=== PATIENT | male | born 1930 | race Caucasian/White ===

== ENCOUNTER 2016-05-08 17:30 | Emergency (ER) | payer OTHER, MEDICARE ==
[~2016-05-08] VITALS: Ht 172.7 cm; Wt 81.6 kg
[~2016-05-08 17:30] MED LIST: AMOXICILLIN250 M3 PO; AMOXIL500 MG PO; ARICEPT10 M1 PO; ASPIR 8181 MG PO; ASPIRIN EC81 M1 PO; Benadryl TOP; CIPRO 250MG250 MG PO; CIPRO 500MG TA500 MG PO; CLONIDINE HCL0.1 MG PO; DOXYCYCLINE HY100 M4 PO; DOXYCYCLINE50 M1 PO; ELIMITE60 GM TOP; EUCERIN1 CRE TOP; FINASTERIDE5 M1 PO; FLOMAX(MONOGRA0.4 MG PO; FOLIC ACID0.4 MG PO; FOLIC ACID1 M1 PO; FUROSEMIDE20 M1 PO; LIPITOR20 M2 PO; LUBRIDERM 480ML16 OZ TOP; METOPROLOL TART25 M1 PO; MIRALAX17 GM PO; NAMENDA10 M2 PO; NYSTATIN AND TR1 OIN TOP; NYSTATIN100000 U/2 TOP; PAIN RELIEVER500 MG PO; PERCOCET 325 MG1 TA2 PO; PREDNISONE 20MG20 MG PO; PREDNISONE5 M1 PO; PRILOSEC 20MG C20 MG PO; ROBITUSSIN COU237 ML PO; SENNA CON/DOCUS1 TAB PO; TRAZODONE HCL50 M1 PO; TRIAMCINOL0.1 %/453 TOP; TRIAMCINOLONE A15 GM TOP; TRIAMCINOLONE0.025% TOP; VITAMIN B-121000 MC3 PO; [UNRECOGNIZED DRUG - OTHER] TOP
--- NOTE | 2016-05-08 17:48 | ED NEURO DEFICIT/STROKE ---
See Addendum History of Present Illness General Chief Complaint: General Adult Stated Complaint: NUMBNESS TO RIGHT SIDE OF FACE Source: patient, old records, EMS Exam Limitations: dementia Vital Signs & Intake/Output Vital Signs & Intake/Output Vital Signs Date Time Temp Pulse Resp B/P Pulse O2 O2 Flow FiO2 Ox Delivery Rate 05/08 2018 98.0 68 18 140/80 94 Room Air 05/08 1733 96 05/08 1732 97.7 62 16 139/78 93 Room Air Allergies Coded Allergies: Antihistamines - Alkylamine (UNKNOWN 06/25/15) Reconcile Medications Acetaminophen (Pain Reliever) 500 MG CAPSULE 2 TAB PO BID PRN PAIN (Reported) Aspirin (Ecotrin*) 81 MG TABLET.DR 1 TAB PO DAILY HEART/BLOOD (Reported) Atorvastatin Calcium (Lipitor) 20 MG TABLET 1 TAB PO DAILY CHOLESTEROL ( Reported) Clonidine HCl 0.1 MG TABLET 1 TAB PO DAILY HTN (Reported) Cyanocobalamin (Vitamin B-12) 1,000 MCG TABLET 1 TAB PO DAILY SUPPLEMENT ( Reported) Donepezil HCl (Aricept) 10 MG TABLET 1 TAB PO QPM MEMORY (Reported) Finasteride 5 MG TABLET 1 TAB PO DAILY PROSTATE (Reported) Folic Acid 1 MG TABLET 1 TAB PO DAILY SUPPLEMENT (Reported) Furosemide 20 MG TABLET 1 TAB PO DAILY DIURETIC (Reported) Memantine HCl (Namenda) 10 MG TABLET 1 TAB PO BID MEMORY (Reported) Metoprolol Tartrate 25 MG TABLET 1 TAB PO BID HTN (Reported) Nystatin (Nyamyc) 100,000 UNIT/GRAM POWDER 1 FALLON TOP AD PRN UNKNOWN (Reported ) Omeprazole 40 MG CAPSULE.DR 1 CAP PO DAILY AC GI (Reported) Polyethylene Glycol 3350 (Miralax) 17 GRAM POWD.PACK 1 PAC PO DAILY PRN GI ( Reported) dissolve in water Selenium Sulfide 2.5 % SHAMPOO 1 FALLON TOP BID ABD & LEGS (Reported) Sennosides (Senna) 8.6 MG TABLET 1 TAB PO Monday GI (Reported) Tamsulosin HCl (Flomax) 0.4 MG CAP.ER.24H 1 CAP PO DAILY BPH (Reported) Trazodone HCl 50 MG TABLET 1 TAB PO BID UNKNOWN (Reported) Triamcinolone Acetonide 0.025 % OINT...G. 1 FALLON TOP DAILY PRN AFFECTED AREA(S) (Reported) apply to affected area(s) Triamcinolone Acetonide 0.1 % OINT...G. 1 FALLON TOP BID PRN ABD & LEGS ( Reported) apply to affected area(s) Triage Note: 86YO MALE BIBA FROM [facility]. PT STATES HE HAD SOME NUMBNESS ON THE LEFT SIDE OF HIS FACE THAT HAS SINCE SUBSIDED. FAMILY WAS CONCERNED AND THOUGHT HE NEEDED TO COME IN FOR EVAL. PT OFFERS NO COMPLAINTS AT THIS TIME. Triage Nurses Notes Reviewed? yes HPI: 85 y/o male with a PMH of HTN, CADs/p CABG, HLP, BPH, Alzhiemer's dementia here via ambulance with complaints of numbness to left side of the face. This is reported to us by EMS as patient does not recall why he is here in the ER or which side of the face he had numbness on. The facial numbness was apparently reported by family who is not in the emergency department at this time. Patient has no complaints, states he feels well, he is pleasantly confused. He denies any headaches nausea vomiting chest pain or numbness or weakness or neurologic symptoms in the extremities. 05/08/2016 6:01:53 PM: patient's daughter has now arrived and is able to provide history. She states around 4:30 patient had left-sided facial numbness that also included the neck and both arms, he felt weak and couldn't raise the arms or legs and couldn't get out of the chair. He did not lose consciousness. He did not feel dizzy. the symptoms lasted approximately 20 minutes and then resolved by the time the ambulance got there. Daughter is with him daily and states this is not usual for him. He has history of coronary artery disease and his need for valve replacement however due to his Alzheimer's he is not a candidate for surgery. Past History Travel History Traveled to [place] past 21 day No Medical History Any Pertinent Medical History? 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 CHRONIC EDEMA Respiratory: NONE Gastrointestinal: diverticulosis Hepatic: NONE Renal: benign prost hyperplasia Musculoskeletal: NONE Psychiatric: NONE Endocrine: NONE Blood Disorders: vasculitis BACTEREMIA Cancer(s): NONE History of MRSA: No History of VRE: No History of CDIFF: No Surgical History Surgical History: CABG ( 10 YRS AGO), QUAD BYPASS Psychosocial History Who do you live with Daughter Services at Home Home Health Aide What is your primary language Haitian Tobacco Use: Quit >30 days ago ETOH Use: denies use Illicit Drug Use: denies illicit drug use Family History Family History, If Any: SON, , Age 30-40. Relation not specified for: FH: leukemia Hx Contributory? No Review of Systems Review of Systems Constitutional: Reports: see HPI. EENTM: Reports: no symptoms. Respiratory: Reports: no symptoms. Cardiovascular: Reports: no symptoms. GI: Reports: no symptoms. Genitourinary: Reports: no symptoms. Musculoskeletal: Reports: no symptoms. Skin: Reports: no symptoms. Neurological/Psychological: Reports: see HPI. Hematologic/Endocrine: Reports: no symptoms. Immunologic/Allergic: Reports: no symptoms. All Other Systems: Reviewed and Negative Physical Exam Physical Exam General Appearance: well developed/nourished Cranial Nerves: normal hearing, normal speech, PERRL Coordination/Gait: normal finger to nose Motor/Sensory: no motor/sensory deficits Comments: Well-developed well-nourished person in no acute distress HEENT: Poor dentition, extraocular motion intact, no nystagmus. Pupils equally round and reactive to light. Nose is atraumatic. External auditory canal and Tympanic membranes clear. Pharynx normal. No swelling or edema. Neck: Supple, no lymphadenopathy, normal range of motion without pain or tenderness Back: Nontender, no CVA tenderness. Full range of motion Cardiovascular: Regular rate and rhythms, + murmurs, normal JVP Respiratory: Chest nontender. No respiratory distress. Breath sounds clear to auscultation bilaterally Abdomen: Soft, nontender nondistended, no appreciable organomegaly. Normal bowel sounds. No ascites Extremity: No edema, no calf tenderness to palpation, normal and equal pulses. Neuro: Alert oriented x3 with mild confusion, motor sensory normal, cranial nerves II through XII grossly intact. No pronator drift, able to follow commands Skin: No appreciable rash on exposed skin, skin is warm and dry. Psych: Mood and affect is normal, memory and judgment is normal. Core Measures CVA/TIA Diagnosis: No NIH Stroke Scale: Total 0 Severe Sepsis Present: No Septic Shock Present: No Progress Differential Diagnosis: acute glaucoma, Bob's Palsy, drug intoxication, electrolyte imbalance, encephalitis, hypoglycemia, intracranial Hem., intracranial mass/tumor, meningitis, migraine DICKERSON, seizure disorder, stroke, subarachnoid Hem., vertebrobasilar insuff. Plan of Care: Orders Procedure Date/time Status Add-on Test (ER Only) 05/08 1830 Active TROPONIN LEVEL 05/08 174 Complete COMPREHENSIVE METABOLIC PANEL 05/08 173 Complete CBC WITHOUT DIFFERENTIAL 05/08 1737 Complete EKG 05/08 173 Active Laboratory Tests 05/08/16 1742: Anion Gap 12, Estimated GFR > 60, BUN/Creatinine Ratio 15.6, Glucose 127 H, Calcium 8.7, Total Bilirubin 1.1, AST 17, ALT 33, Alkaline Phosphatase 138 H, Troponin I < 0.01, Total Protein 7.1, Albumin 3.8, Globulin 3.3, Albumin/ Globulin Ratio 1.2, CBC w Diff NO MAN DIFF REQ, RBC 4.90, MCV 88.3, MCH 29.9, RDW 13.6, MPV 7.8, Gran % 62.2, Lymphocytes % 26.4, Monocytes % 6.7, Eosinophils % 4.4, Basophils % 0.3, Absolute Granulocytes 5.6, Absolute Lymphocytes 2.4, Absolute Monocytes 0.6, Absolute Eosinophils 0.4, Absolute Basophils 0, PUBS MCHC 33.8 Diagnostic Imaging: Viewed by Me: CT Scan. Discussed w/RAD: CT Scan. Radiology Impression: PATIENT: HELENA MCFARLANE PRESENT AGE: 86 PATIENT ACCOUNT NO: [id number] : 29 LOCATION: [facility] ORDERING PHYSICIAN: KELI UNDERWOOD SERVICE DATE: 05/08/16 EXAM TYPE: CAT - CT HEAD WO IV CONTRAST EXAMINATION: CT HEAD WITHOUT CONTRAST CLINICAL INFORMATION: 86-year-old male presented with facial numbness. COMPARISON: CT of the head done on 10/27/2014. TECHNIQUE: Contiguous axial imaging was performed from the skull base to vertex without intravenous administration of contrast. DLP: 529.16 mGy-cm FINDINGS: There is no evidence of acute intracranial hemorrhage or territorial infarction. No abnormal mass effect or midline shift is seen. March to white matter differentiation is well preserved. No extra-axial fluid collections are identified. The ventricles are normal in size. Moderate age-appropriate diffuse cortical atrophy and mild chronic microvascular deep white matter ischemic changes are present. No significant change. Significant atherosclerotic disease is noted within the vertebrobasilar and the carotid arterial tree, unchanged. The osseous structures and soft tissues are normal. The mastoid air cells and visualized portions of the paranasal sinuses are well aerated. IMPRESSION: No acute intracranial pathology. No significant change since prior study dated 08/07/2015. DICTATED BY: VEL BARRERA MD DATE/TIME DICTATED:05/08/161757 DIRECTOR OF SALES:NATA DATE/TIME TRANSCRIBED:1757 Initial ED EKG: NSR, RBBB, nonspecific ST T wave chg Rhythm Strip: normal sinus rhythm Comments: Patient has been asymptomatic throughout his stay here, his workup is unremarkable, his symptoms are vague and bilateral and feels always having a TIA or acute coronary event. He is stable for discharge back to assisted living facility, discussed with patient's daughter, she will monitor him closely and have him return with any concerning symptoms. Departure Departure Disposition: HOME OR SELF CARE Condition: Stable Clinical Impression Primary Impression: Numbness and tingling of left side of face Referrals: SALO MCMILLAN,HELIO Kennedy (PCP/Family) Additional Instructions: Return with any concerns of weakness in the arms or legs, numbness, worsening confusion or dementia, fever or flulike illness Departure Forms: Customer Survey General Discharge Information
[2016-05-08 17:51] LABS: ABSOLUTE BASOPHIL COUNT 0 /CUMM (0.0-0.2); ABSOLUTE EOSINOPHIL COUNT 0.4 /CUMM (0.0-0.7); ABSOLUTE GRANULOCYTE CT 5.6 /CUMM (1.4-6.5); ABSOLUTE LYMPH COUNT 2.4 /CUMM (1.2-3.4); ABSOLUTE MONOCYTE COUNT 0.6 /CUMM (0.10-0.60); BASOPHIL % 0.3 % (0.0-2.0); EOSINOPHIL % 4.4 % (0-5); GRANULOCYTE % 62.2 % (42.2-75.2); HEMATOCRIT 43.3 % (42-52); MEAN CORPUSCULAR HGB 29.9 PG (27.0-31.0); MEAN CORPUSCULAR HGB CONC 33.8 G/DL (33.0-37.0); MEAN CORPUSCULAR VOLUME 88.3 FL (80.0-94.0); MEAN PLATELET VOLUME 7.8 FL (7.4-10.4); PLATELET COUNT 179 /CUMM (130-400); RBC DISTRIBUTION WIDTH 13.6 % (11.5-14.5); WHITE BLOOD CELL COUNT 8.9 /CUMM (4.8-10.8)
--- NOTE | 2016-05-08 18:10 | CT SCAN REPORT ---
EXAMINATION: CT HEAD WITHOUT CONTRAST CLINICAL INFORMATION: 86-year-old male presented with facial numbness. COMPARISON: CT of the head done on 10/27/2014. TECHNIQUE: Contiguous axial imaging was performed from the skull base to vertex without intravenous administration of contrast. DLP: 529.16 mGy-cm FINDINGS: There is no evidence of acute intracranial hemorrhage or territorial infarction. No abnormal mass effect or midline shift is seen. March to white matter differentiation is well preserved. No extra-axial fluid collections are identified. The ventricles are normal in size. Moderate age-appropriate diffuse cortical atrophy and mild chronic microvascular deep white matter ischemic changes are present. No significant change. Significant atherosclerotic disease is noted within the vertebrobasilar and the carotid arterial tree, unchanged. The osseous structures and soft tissues are normal. The mastoid air cells and visualized portions of the paranasal sinuses are well aerated. IMPRESSION: No acute intracranial pathology. No significant change since prior study dated 08/07/2015.
[2016-05-08] MEDS ORDERED: TRIAMCINOLONE A80 GM TOP (19:19)
[2016-05-08] MEDS ORDERED: FLOMAX0.4 M1 PO (19:21)
[2016-05-08] MEDS ORDERED: TRIAMCINOLONE A15 G3 TOP (19:22)
[2016-05-08] MEDS ORDERED: SELENIUM SULFI120 M1 TOP (19:24)
[2016-05-08] MEDS ORDERED: OMEPRAZOLE40 M1 PO (19:26)
[2016-05-08] MEDS ORDERED: MIRALAX17 G1 PO (19:30)
[2016-05-08] MEDS ORDERED: SENNA8.6 M3 PO (19:31)
[2016-05-08] MEDS ORDERED: NYAMYC15 GM TOP (19:33)
[2016-05-08 20:19] VITALS: BP 140/80
== END 2016-05-08 20:24 ==
LOC: ERH 17:30
PROVIDERS: Physician Assistant Surgical
DX: R20.0 Anesthesia of skin (principal)
CPT/HCPCS: 93005; 93010

== ENCOUNTER 2016-06-27 18:23 | Inpatient (IN) | payer OTHER, MEDICARE ==
[~2016-06-27] VITALS: Ht 172.7 cm; Wt 86.2 kg
[~2016-06-27 18:23] MED LIST changes: +FLOMAX0.4 M1 PO; +MIRALAX17 G1 PO; +NYAMYC15 GM TOP; +OMEPRAZOLE40 M1 PO; +SELENIUM SULFI120 M1 TOP; +SENNA8.6 M3 PO; +TRIAMCINOLONE A15 G3 TOP; +TRIAMCINOLONE A80 GM TOP
--- NOTE | 2016-06-27 18:49 | NUR ---
PER FAMILY PT AT [facility] ?BILAT LE CELLULITIS. UNABLE TO GET HIM TO KEEP HIS LEGS UP.
--- NOTE | 2016-06-27 18:56 | NUR ---
PERMISSION FROM FOR LABS.
--- NOTE | 2016-06-27 19:00 | NUR ---
APPRECIATE TRIAGE NOTE. PT TO ROOM 22 VIA WHEELCHAIR. PA STUDENT AT BEDSIDE FOR EVAL.
--- NOTE | 2016-06-27 19:04 | ED UPPER/LOWER EXTREMITY COMPL ---
History of Present Illness General Chief Complaint: General Adult Stated Complaint: "NURSE SAID TO SEND HERE" MULTIPLE COMPLAINTS Source: patient, family, old records Exam Limitations: dementia Vital Signs & Intake/Output Vital Signs & Intake/Output Vital Signs Date Time Temp Pulse Resp B/P Pulse O2 O2 Flow FiO2 Ox Delivery Rate 06/27 2237 97.7 62 20 154/69 94 Room Air 06/27 2128 98.0 85 18 148/70 95 Room Air Room Air 06/27 1850 97.9 83 22 155/72 96 Allergies Coded Allergies: Antihistamines - Alkylamine (UNKNOWN 06/25/15) Reconcile Medications Acetaminophen (Pain Reliever) 500 MG CAPSULE 2 TAB PO BID PRN PAIN (Reported) Aspirin (Ecotrin*) 81 MG TABLET.DR 1 TAB PO DAILY HEART/BLOOD (Reported) Atorvastatin Calcium (Lipitor) 20 MG TABLET 1 TAB PO DAILY CHOLESTEROL ( Reported) Clonidine HCl 0.1 MG TABLET 1 TAB PO DAILY HTN (Reported) Cyanocobalamin (Vitamin B-12) 1,000 MCG TABLET 1 TAB PO DAILY SUPPLEMENT ( Reported) Donepezil HCl (Aricept) 10 MG TABLET 1 TAB PO QPM MEMORY (Reported) Finasteride 5 MG TABLET 1 TAB PO DAILY PROSTATE (Reported) Folic Acid 1 MG TABLET 1 TAB PO DAILY SUPPLEMENT (Reported) Furosemide 20 MG TABLET 1 TAB PO DAILY DIURETIC (Reported) Memantine HCl (Namenda) 10 MG TABLET 1 TAB PO BID MEMORY (Reported) Metoprolol Tartrate 25 MG TABLET 1 TAB PO BID HTN (Reported) Nystatin (Nyamyc) 100,000 UNIT/GRAM POWDER 1 FALLON TOP AD PRN UNKNOWN (Reported ) Omeprazole 40 MG CAPSULE.DR 1 CAP PO DAILY AC GI (Reported) Polyethylene Glycol 3350 (Miralax) 17 GRAM POWD.PACK 1 PAC PO DAILY PRN GI ( Reported) dissolve in water Selenium Sulfide 2.5 % SHAMPOO 1 FALLON TOP BID ABD & LEGS (Reported) Sennosides (Senna) 8.6 MG TABLET 1 TAB PO Monday GI (Reported) Tamsulosin HCl (Flomax) 0.4 MG CAP.ER.24H 1 CAP PO DAILY BPH (Reported) Trazodone HCl 50 MG TABLET 1 TAB PO BID UNKNOWN (Reported) Triamcinolone Acetonide 0.1 % OINT...G. 1 FALLON TOP BID PRN ABD & LEGS ( Reported) apply to affected area(s) Triage Note: PER FAMILY PT AT [facility] ?BILAT LE CELLULITIS. UNABLE TO GET HIM TO KEEP HIS LEGS UP. Triage Nurses Notes Reviewed? yes Onset: Gradual Duration: week(s):, constant, getting worse Timing: recent history Severity: moderate, severe Severity Numbers: 8 Pain/Injury Location: Bilateral: Leg. Method of Injury: unknown No Modifying Factors: none Associated Symptoms: GAIT INSTABILITY HPI: 86 year old male with history of dementia, history of CAD status post quadruple bypass, hypertension and aortic stenosis presents with his daughter for evaluation sent in by visiting nurse complaining of briskly worsening lower extremity edema weeping discharge to his legs. He is on Lasix 20 mg and is scheduled to see his hair specialist Dr. Smith in 4 days. The patient denies any chest pain shortness of breath. The patient's daughter however states that he has severe dementia and has been noncompliant with keeping his legs elevated and has had near fall secondary to the swelling. There's been no redness warmth fever or chills. No shortness of breath abdominal pain nausea or vomiting. Patient is pink but with his medications no modifying factors or associated symptoms otherwise (MAXIMINO RIVERA) Past History Travel History Traveled to [place] past 21 day No Medical History Any Pertinent Medical History? 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 CHRONIC EDEMA Respiratory: NONE Gastrointestinal: diverticulosis Hepatic: NONE Renal: benign prost hyperplasia Musculoskeletal: NONE Psychiatric: NONE Endocrine: NONE Blood Disorders: vasculitis BACTEREMIA Cancer(s): NONE History of MRSA: No History of VRE: No History of CDIFF: No Surgical History Surgical History: CABG ( 10 YRS AGO), QUAD BYPASS Psychosocial History Who do you live with Daughter Services at Home Home Health Aide What is your primary language Afghan Tobacco Use: Never used Family History Family History, If Any: SON, , Age 30-40. Relation not specified for: FH: leukemia Hx Contributory? No (MAXIMINO RIVERA) Review of Systems Review of Systems Constitutional: Reports: see HPI. All Other Systems: Reviewed and Negative Comments Review of systems: See HPI, All other systems negative. Constitutional, no chills no fever, malaise HEENT: No visual changes no sore throat no congestion Cardiovascular: No chest pain , no palpitation Skin, no jaundice no rashes, no change in skin Respiratory: No dyspnea no cough no sputum GI: No nausea no vomiting, : No dysuria Muscle skeletal: No joint pain, no back pain, no neck pain, Neurologic: No numbness no headache Psych: No stress Heme/endocrine: No bruising no bleeding Immunology: No lymphadenopathy (MAXIMINO RIVERA) Physical Exam Physical Exam General Appearance: well developed/nourished, awake Comments: Well-developed well-nourished person in no acute distress HEENT: Normal EENT exam; PERRL, EOMI, HEAD is atraumatic. moist mucous membranes. Neck: Supple, normal range of motion Back: Nontender, no CVA tenderness. Full range of motion Cardiovascular: Regular rate and rhythms no murmurs rubs o Respiratory: No respiratory distress. Patient speaking in full complete sentences. Breath sounds clear to auscultation bilaterally: NO W/R/R Abdomen: Soft, nontender nondistended, no appreciable organomegaly. Normal bowel sounds. No rebound/guarding, No appreciable enlargement of the abdominal aorta, No ascites. Extremity: 2-3+ pitting edema to bilateral lower extremities there is no erythema or warmth, full range of motion of extremities, normal and equal pulses bilaterally, 5 out of 5 strength noted to bilateral upper and lower extremities Neuro: Alert oriented x0, motor sensory normal, . There were no obvious focal neurologic abnormalities. Skin: No appreciable rash on exposed skin, skin is warm and dry. Psych: Mood and affect is normal, memory and judgment is normal. (MAXIMINO RIVERA) Progress Differential Diagnosis: arterial insufficiency, cellulitis, CHF, compartment syndrome, contusion, DVT, sprain, electrolyte disorder acute kidney injury Plan of Care: Orders Procedure Date/time Status Regular Diet 06/28 B Active Heart Healthy Diet 06/27 D Complete Patient Data 06/27 2248 Active Pathway - chart 06/27 2220 Active House Staff 06/27 2220 Active Code Status 06/27 2220 Active Saline Lock 06/28 2211 Active Misc Message 06/28 2211 Active ED Holding Orders 06/28 2211 Active Vital Signs 06/28 2211 Active Activity/Ambulation 06/28 2211 Active Code Status 06/28 2211 Complete Admit to inpatient 06/27 2134 Active EKG 06/27 2124 Active Intake & Output 06/27 1945 Active TROPONIN LEVEL 06/28 1855 Complete COMPREHENSIVE METABOLIC PANEL 06/28 1855 Complete CBC WITHOUT DIFFERENTIAL 06/28 1855 Complete B-TYPE NATRIURETIC PEP (BNP) 06/28 1855 Complete VTE Mechanical Prophylaxis 06/27 UNK Active Vital Signs 06/27 UNK Active MISTAKE 06/27 UNK Active Intake & Output 06/27 UNK Active Hemoccult 06/27 UNK Active Laboratory Tests 06/27/16 1930: Anion Gap 11, Estimated GFR > 60, BUN/Creatinine Ratio 14.4, Glucose 147 H, Calcium 8.4, Total Bilirubin 0.9, AST 18, ALT 35, Alkaline Phosphatase 137 H, Troponin I 0.03, Tna-G-Ybxoprdekwz Pept 469 H, Total Protein 6.8, Albumin 3.7, Globulin 3.1, Albumin/Globulin Ratio 1.2, CBC w Diff NO MAN DIFF REQ, RBC 4.75, MCV 88.4, MCH 29.5, RDW 13.5, MPV 8.1, Gran % 63.5, Lymphocytes % 25.9, Monocytes % 7.9, Eosinophils % 2.4, Basophils % 0.3, Absolute Granulocytes 5.3, Absolute Lymphocytes 2.2, Absolute Monocytes 0.7 H, Absolute Eosinophils 0.2, Absolute Basophils 0, PUBS MCHC 33.4 Labs ordered old records reviewed Lasix 40 IV ordered Case discussed with Dr. Mace agrees with plan Patient attempted ambulation with a walker which she normally does not need with shuffling unsteady gait. Case management was consult did premature discharge would BE medically harmful case was discussed with Dr. RAE will admit (ANA UNDERWOOD,MAXIMINO) Diagnostic Imaging: Viewed by Me: Radiology Read, Ultrasound. Discussed w/RAD: Radiology Read, Ultrasound. Radiology Impression: PATIENT: HELENA MCFARLANE PRESENT AGE: 86 PATIENT ACCOUNT NO: [id number] : 29 LOCATION: [facility] ORDERING PHYSICIAN: MAXIMINO UNDERWOOD SERVICE DATE: 06/27/16 EXAM TYPE: US - US-EXT BILAT VENOUS DOPPLER EXAMINATION: US TRIPLEX LOWER EXTREMITY, BILATERAL CLINICAL INFORMATION: Bilateral lower extremity swelling. COMPARISON: None available. TECHNIQUE: Color-flow triplex imaging with spectral analysis and compression Doppler were performed on the bilateral lower extremities. FINDINGS: Respiratory variation, normal compression and augmented flow are noted throughout the bilateral lower extremities. The visualized common femoral vein, superficial femoral vein, profunda femoral vein, popliteal vein and midcalf peroneal and posterior tibial venous segments show no evidence of deep venous thrombosis. There is no Hampton's cyst. IMPRESSION: Normal triplex scan without evidence of deep venous thrombosis involving the bilateral lower extremities. DICTATED BY: LEANDRA RODRIGUEZ MD DATE/TIME DICTATED:06/27/162039 POLYGRAPH OPERATOR:NATA DATE/TIME TRANSCRIBED:06/27/162039 CONFIDENTIAL, DO NOT COPY WITHOUT APPROPRIATE AUTHORIZATION. <Electronically signed in Other Vendor System> SIGNED BY: LEANDRA RODRIGUEZ MD 06/27/162045, ATIENT: HELENA MCFARLANE PRESENT AGE: 86 PATIENT ACCOUNT NO: [id number] : 29 LOCATION: [facility] ORDERING PHYSICIAN: MAXIMINO UNDERWOOD SERVICE DATE: 06/27/16 EXAM TYPE : RAD - [id number] VIEW; XRY-CHEST XRAY, PA AND LATERAL EXAMINATION: AP and lateral chest radiograph and AP supine views of the abdomen CLINICAL INDICATION: Leg edema and abdominal distention. COMPARISON: None FINDINGS: Chest : Median sternotomy wires are intact. Surgical clips project over the mediastinum. There are diffuse interstitial markings that appear greater than previous exams and there are Kristi B lines within the periphery, findings in keeping with mild interstitial pulmonary edema. There are trace pleural effusions. Cardiac silhouette is enlarged and unchanged. Abdomen: Gas distended large bowel is seen within the central abdomen. There is moderate volume intracolonic stool. Paucity of small bowel gas. Probable gas distended stomach within the upper midline abdomen. No definite free air is seen on the supine views nor on the chest x-ray. There is arterial atherosclerotic calcification. There are no acute osseous findings. Degenerative changes within the lumbar spine. IMPRESSION: - Mild interstitial pulmonary edema and trace pleural effusions. Stable enlargement of the cardiac silhouette. - Gas-distended colon and stomach within the central abdomen. Moderate volume intracolonic stool and a paucity of small bowel gas. DICTATED BY: LEANDRA RODRIGUEZ MD DATE/TIME DICTATED: 06/27/162023 POLYGRAPH OPERATOR:NATA DATE/TIME TRANSCRIBED:06/27/162023 CONFIDENTIAL, DO NOT COPY WITHOUT APPROPRIATE AUTHORIZATION. <Electronically signed in Other Vendor System> SIGNED BY: LEANDRA RODRIGUEZ MD 06/27/162032 (MAXIMINO RIVERA) Departure Departure Time of Disposition: 2132 Disposition: STILL A PATIENT Condition: Stable Clinical Impression Primary Impression: Leg edema Secondary Impressions: Gait instability Referrals: SALO MCMILLAN,HELIO Kennedy (PCP/Family) Departure Forms: Customer Survey General Discharge Information Admission Note Spoke With: EFRAIN RAE MD Documentation of Exam: Documentation of any treatments & extenuating circumstances including Concerns Regarding Discharge (functional status, medication knowledge or non-compliance, living conditions, etc.) that warrant an admission rather than observation: Patient will require IV diuresis cardiology consult, patient is unable to perform ADLs, gait is not at baseline he is a fall risk premature discharge would BE medically harmful (MAXIMINO RIVERA) PA/LITHOGRAPHIC PROOFER Co-Sign Statement Statement: ED Attending supervision documentation- [X] I saw and evaluated the patient. I have also reviewed all the pertinent lab results and diagnostic results. I agree with the findings and the plan of care as documented in the PA's/LITHOGRAPHIC PROOFER's documentation. [X] I have reviewed the ED Record and agree with the PA's/LITHOGRAPHIC PROOFER's documentation. [] Additions or exceptions (if any) to the PAs/LITHOGRAPHIC PROOFER's note and plan are summarized below: [] (MARINA MCMILLAN,CHRISTAL Estrella)
--- NOTE | 2016-06-27 19:25 | NUR ---
KJ CRAIG TO BEDSIDE FOR EVAL.
[2016-06-27 19:39] LABS: ABSOLUTE BASOPHIL COUNT 0 /CUMM (0.0-0.2); ABSOLUTE EOSINOPHIL COUNT 0.2 /CUMM (0.0-0.7); ABSOLUTE GRANULOCYTE CT 5.3 /CUMM (1.4-6.5); ABSOLUTE LYMPH COUNT 2.2 /CUMM (1.2-3.4); ABSOLUTE MONOCYTE COUNT 0.7 /CUMM (0.10-0.60); BASOPHIL % 0.3 % (0.0-2.0); EOSINOPHIL % 2.4 % (0-5); GRANULOCYTE % 63.5 % (42.2-75.2); MEAN CORPUSCULAR HGB 29.5 PG (27.0-31.0); MEAN CORPUSCULAR HGB CONC 33.4 G/DL (33.0-37.0); MEAN CORPUSCULAR VOLUME 88.4 FL (80.0-94.0); MEAN PLATELET VOLUME 8.1 FL (7.4-10.4); PLATELET COUNT 181 /CUMM (130-400); RBC DISTRIBUTION WIDTH 13.5 % (11.5-14.5); RED BLOOD CELL CT 4.75 /CUMM (4.70-6.10); WHITE BLOOD CELL COUNT 8.3 /CUMM (4.8-10.8)
--- NOTE | 2016-06-27 19:46 | NUR ---
PT TO RADIOLOGY FOR X-RAY.
--- NOTE | 2016-06-27 20:33 | RADIOLOGY REPORT ---
EXAMINATION: AP and lateral chest radiograph and AP supine views of the abdomen CLINICAL INDICATION: Leg edema and abdominal distention. COMPARISON: None FINDINGS: Chest: Median sternotomy wires are intact. Surgical clips project over the mediastinum. There are diffuse interstitial markings that appear greater than previous exams and there are Kristi B lines within the periphery, findings in keeping with mild interstitial pulmonary edema. There are trace pleural effusions. Cardiac silhouette is enlarged and unchanged. Abdomen: Gas distended large bowel is seen within the central abdomen. There is moderate volume intracolonic stool. Paucity of small bowel gas. Probable gas distended stomach within the upper midline abdomen. No definite free air is seen on the supine views nor on the chest x-ray. There is arterial atherosclerotic calcification. There are no acute osseous findings. Degenerative changes within the lumbar spine. IMPRESSION: - Mild interstitial pulmonary edema and trace pleural effusions. Stable enlargement of the cardiac silhouette. - Gas-distended colon and stomach within the central abdomen. Moderate volume intracolonic stool and a paucity of small bowel gas.
--- NOTE | 2016-06-27 20:46 | ULTRASOUND REPORT ---
EXAMINATION: US TRIPLEX LOWER EXTREMITY, BILATERAL CLINICAL INFORMATION: Bilateral lower extremity swelling. COMPARISON: None available. TECHNIQUE: Color-flow triplex imaging with spectral analysis and compression Doppler were performed on the bilateral lower extremities. FINDINGS: Respiratory variation, normal compression and augmented flow are noted throughout the bilateral lower extremities. The visualized common femoral vein, superficial femoral vein, profunda femoral vein, popliteal vein and midcalf peroneal and posterior tibial venous segments show no evidence of deep venous thrombosis. There is no Hampton's cyst. IMPRESSION: Normal triplex scan without evidence of deep venous thrombosis involving the bilateral lower extremities.
--- NOTE | 2016-06-27 21:28 | NUR ---
PT ASSISTED TO EDGE OF BED WITH MAX ASSIST OF 2. PT AMBULATORY TO DOORWAY WITH WALKER AND ASSIST OF 1 WITH SLOW UNSTEADY GAIT. PT REQUIRES MAX ASSIST OF 2 TO GET IN AND OUT OF BED AT THIS TIME.
--- NOTE | 2016-06-27 22:14 | NUR ---
HOUSE STAFF TO BEDSIDE FOR EVAL.
--- NOTE | 2016-06-27 22:22 | NUR ---
PT BED ASSIGNMENT 218-1
--- NOTE | 2016-06-27 22:31 | NUR ---
RN UNABLE TO TAKE REPORT AT THIS TIME AND IS TO CALL BACK.
--- NOTE | 2016-06-27 22:48 | History & Physical ---
PROSPER LOPES 06/27/16 2247: General Information and HPI MD Statement: I have seen and personally examined HELENA MCFARLANE and documented this H&P. The patient is a 86 year old M who presented with a patient stated chief complaint of worsening bilateral lower extremity edema. Source of Information: patient, family, old records Exam Limitations: no limitations History of Present Illness: This is a 86-year-old male with past medical history significant for alzeihmers dementia, coronary artery disease status post quadruple bypass, severe aortic stenosis, hypertension, hyperlipidemia, bilateral lower extremity leg swelling on Lasix 20 mg daily, insomnia, benign prostatitic hypertrophy, constipation, GERD, diverticulosis, CABG 10 years ago presented to emergency department with chief complaint of worsening bilateral lower extremity edema for a month. He was sent to the emergency department by the visiting nurse with chief complaint of worsening bilateral lower extremity edema and gait instability. According to the daughter who is at bedside reported ongoing bilateral lower extremity edema for years. However the swelling has been worsened since one month. She also reported bilateral wounds associated with redness, weeping discharge to his legs lately. Patient usually takes Lasix 20 mg daily for the swelling and he follows Dr. Smith marketing services manager. The patient's daughter however states that he has severe dementia and has been noncompliant with keeping his legs elevated and has had near fall secondary to the swelling. Patient denies any chest pain, racing of heart, difficulty breathing, orthopnea, paroxysmal nocturnal dyspnea, cough, fever, chills. He denies any headache, weakness or sensory changes, vision abnormalities. Denies any neurological deficits. However daughter reports gait instability and lightheadedness for a week. However denied any loss of consciousness, syncopal episodes. Denies any abdominal pain, nausea, vomiting, problems with urination. However patient has long-standing history of constipation for which he uses senna, MiraLAX as required. Patient attempted ambulation with a walker which he normally does, but unsteady gait reported by the visiting nurse. Last echocardiogram in September 2015, ejection fraction 65-70%, left ventricle was thickened, severe aortic stenosis. Allergies/Medications Allergies: Coded Allergies: Antihistamines - Alkylamine (UNKNOWN 06/25/15) Home Med list Acetaminophen (Pain Reliever) 500 MG CAPSULE 2 TAB PO BID PRN PAIN (Reported) Aspirin (Ecotrin*) 81 MG TABLET.DR 1 TAB PO DAILY HEART/BLOOD (Reported) Atorvastatin Calcium (Lipitor) 20 MG TABLET 1 TAB PO DAILY CHOLESTEROL ( Reported) Clonidine HCl 0.1 MG TABLET 1 TAB PO DAILY HTN (Reported) Cyanocobalamin (Vitamin B-12) 1,000 MCG TABLET 1 TAB PO DAILY SUPPLEMENT ( Reported) Donepezil HCl (Aricept) 10 MG TABLET 1 TAB PO QPM MEMORY (Reported) Finasteride 5 MG TABLET 1 TAB PO DAILY PROSTATE (Reported) Folic Acid 1 MG TABLET 1 TAB PO DAILY SUPPLEMENT (Reported) Furosemide 20 MG TABLET 1 TAB PO DAILY DIURETIC (Reported) Memantine HCl (Namenda) 10 MG TABLET 1 TAB PO BID MEMORY (Reported) Metoprolol Tartrate 25 MG TABLET 1 TAB PO BID HTN (Reported) Nystatin (Nyamyc) 100,000 UNIT/GRAM POWDER 1 FALLON TOP AD PRN UNKNOWN (Reported ) Omeprazole 40 MG CAPSULE.DR 1 CAP PO DAILY AC GI (Reported) Polyethylene Glycol 3350 (Miralax) 17 GRAM POWD.PACK 1 PAC PO DAILY PRN GI ( Reported) dissolve in water Selenium Sulfide 2.5 % SHAMPOO 1 FALLON TOP BID ABD & LEGS (Reported) Sennosides (Senna) 8.6 MG TABLET 1 TAB PO Monday GI (Reported) Tamsulosin HCl (Flomax) 0.4 MG CAP.ER.24H 1 CAP PO DAILY BPH (Reported) Trazodone HCl 50 MG TABLET 1 TAB PO BID UNKNOWN (Reported) Triamcinolone Acetonide 0.1 % OINT...G. 1 FALLON TOP BID PRN ABD & LEGS ( Reported) apply to affected area(s) Compliance With Home Meds: GOOD Past History Travel History Traveled to [place] past 21 day No Medical History Neurological: Alzheimer's disease EENT: NONE Cardiovascular: aortic stenosis, CAD, hypertension, hyperlipidemia, QUAD BYPASS 70% CAROTID ARTERY OCCLUS CHRONIC EDEMA Respiratory: NONE Gastrointestinal: diverticulosis Hepatic: NONE Renal: benign prost hyperplasia Musculoskeletal: NONE Psychiatric: NONE Endocrine: NONE Blood Disorders: vasculitis BACTEREMIA Cancer(s): NONE History of MRSA: No History of VRE: No History of CDIFF: No Surgical History Surgical History: CABG ( 10 YRS AGO), QUAD BYPASS Past Family/Social History Family History Relations & Conditions if any SON, , Age 30-40. Relation not specified for: FH: leukemia Psychosocial History Services at Home: Home Health Aide Smoking Status: Never Smoked ETOH Use: denies use Illicit Drug Use: denies illicit drug use Review of Systems Review of Systems Constitutional: Reports: weakness. Denies: chills, diaphoresis, fever, malaise, unexplained weight loss. EENTM: Reports: hearing changes. Denies: visual changes, nasal pain, throat pain. Cardiovascular: Reports: edema, peripheral edema. Denies: chest pain, orthopena, palpitations, syncope. Respiratory: Denies: cough, hemoptysis, orthopnea, short of breath, sputum production, stridor, wheezing. GI: Denies: abdominal pain, bloating, constipation, diarrhea, distention, nausea, vomiting. Genitourinary: Denies: frequency, nocturia, urgency. Musculoskeletal: Denies: back pain, joint pain. Skin: Reports: erythema, lesions. Neurological/Psychological: Reports: dementia. Denies: anxiety, confusion, depressed, headache, numbness, tingling, tremors. Exam & Diagnostic Data Last 24 Hrs of Vital Signs/I&O Vital Signs Date Time Temp Pulse Resp B/P Pulse O2 O2 Flow FiO2 Ox Delivery Rate 06/28 0028 97.6 77 20 140/80 95 Room Air 06/28 0000 94 Room Air 06/27 2238 97.7 62 20 154/69 94 Room Air 06/27 2129 98.0 85 18 148/70 95 Room Air Room Air 06/27 1850 97.9 83 22 155/72 96 Intake & Output 06/28 0800 04/04 0000 0403 1600 Intake Total Output Total 1450 Balance -1450 Output, Urine 1450 Patient 86.183 kg Weight Physical Exam General Appearance Alert, Oriented X3, Cooperative, No Acute Distress Skin No Rashes, No Breakdown HEENT Atraumatic, PERRLA, EOMI, Mucous Membr. moist/pink Neck Supple, No JVD Lymphatic Axillary nl, Cervical nl Cardiovascular Regular Rate, Normal S1, Normal S2, systolic murmur Lungs Clear to Auscultation Abdomen Normal Bowel Sounds, Soft, No Tenderness Neurological Strength at 5/5 X4 Ext, Cranial Nerves 3-12 NL, Reflexes 2+ Extremities No Clubbing, No Cyanosis, chronic venous stasis, b/l +3 pitting edema, redness, blisters, weeping wounds Vascular Normal Pulses Last 24 Hrs of Labs/Mark: Laboratory Tests 06/27/16 1930: Anion Gap 11, Estimated GFR > 60, BUN/Creatinine Ratio 14.4, Glucose 147 H, Calcium 8.4, Total Bilirubin 0.9, AST 18, ALT 35, Alkaline Phosphatase 137 H, Troponin I 0.03, Ool-K-Iqlscfruqtw Pept 469 H, Total Protein 6.8, Albumin 3.7, Globulin 3.1, Albumin/Globulin Ratio 1.2, CBC w Diff NO MAN DIFF REQ, RBC 4.75, MCV 88.4, MCH 29.5, RDW 13.5, MPV 8.1, Gran % 63.5, Lymphocytes % 25.9, Monocytes % 7.9, Eosinophils % 2.4, Basophils % 0.3, Absolute Granulocytes 5.3, Absolute Lymphocytes 2.2, Absolute Monocytes 0.7 H, Absolute Eosinophils 0.2, Absolute Basophils 0, PUBS MCHC 33.4 Diagnostic Data EKG Results Sinus rhythm, 54, premature atrial complex, right bundle branch block. No acute ST-T wave changes CXR Results Mild pulmonary edema and pleural effusions. Assessment/Plan Assessment: This is a 86-year-old male with past medical history significant for alzeihmers dementia, coronary artery disease status post quadruple bypass, severe aortic stenosis, hypertension, hyperlipidemia, bilateral lower extremity leg swelling on Lasix 20 mg daily, insomnia, benign prostatitic hypertrophy, constipation, GERD, diverticulosis, CABG 10 years ago presented to emergency department with chief complaint of worsening bilateral lower extremity edema for a month. He was sent to the emergency department by the visiting nurse with chief complaint of worsening bilateral lower extremity edema and gait instability. Vital signs on admission: Temperature 97.7, pulse rate 62, respiratory rate 20, blood pressure 154/69, oxygen saturation 94% on room air. Pertinent lab on admission: CBC unremarkable, BEP: Glucose 147, proBNP 469, alkaline phosphatase 137. Bilateral lower extremity Doppler scan negative for any DVT. Chest x-ray shows mild interstitial pulmonary edema. Trace pleural effusion. Stable enlargement of the cardiac silhouette. Abdominal x-ray shows gas distended colon and stomach within the central abdomen. Moderate volume intracarinal and paucity of small bowel gas. EKG on admission showed sinus rhythm, rate 54, no ST-T wave changes. Problem list 1. Worsening bilateral lower extremity edema 2. Lower extremity skin changes 3. Tachycardia 4. Severe aortic stenosis 5. Coronary artery disease status post CABG 6. Alzheimer's dementia 7. Hypertension 8. Hyperlipidemia 9. BPH 10. GERD 11. Constipation Worsening lower extremity edema Patient presented with worsening lower extremity edema for a month. Patient has history of aortic stenosis. Possibly from worsening of heart failure. Patient usually takes 20 mg Lasix every day. Last echocardiogram done in September 2015 showed ejection fraction 70% and severe aortic stenosis. * Admission to telemetry floor for further management * Monitor vitals closely * Maintain oxygen saturation above 90% * Continuous telemetry monitoring * We'll give IV Lasix 20 mg twice a day in the hospital * Ins and outs * Urine output * DVT was ruled out by Doppler ultrasound. * Cardiology consult * Will follow up with echocardiogram * First set of troponins and EKG were negative * Will rule out ACS with serial troponins and EKG Lower extremity skin changes: * Patient is afebrile without leukocytosis * there is no clinical indication for an infection. * Monitor closely, * wound consult in the morning. Bradycardia: Patient is on donepezil, metoprolol, clonidine as outpatient. * Continue the certified solid waste facility operator. * Continue metoprolol with holding parameters. * Continue with donepezil and clonidine. Severe : Severe as Will get echocardiogram Cardiology was consulted Would be cautious with diuresis of the patient given preload dependent state of severe . Dementia Continue memantine Continue donepezil Coronary artery disease Status post CABG Continue aspirin Continue statins Hypertension Continue metoprolol 25 twice a day Continue clonidine 0.1 mg insomnia Trazodone as needed BPH Continue tamsulosin Continue finasteride gerd Continue omeprazole 40 daily Constipation Senna and MiraLAX if necessary DVT prophylaxis subcutaneous heparin Full code Heart healthy diet As Ranked By This Provider Problem List: 1. Leg edema 2. Gait instability 3. CAD S/P CABG Core Measures/Miscellaneous Acute Coronary Syndrome ACS Diagnosis: No Cerebrovascular Accident CVA/TIA Diagnosis: No Congestive Heart Failure CHF Diagnosis: No Venous Thromboembolism VTE Risk Factors: Age > 40 No [facility] VTE prophylaxis d/t: No contraindications No VTE Pharm Prophylaxis d/t: No contraindications VTE Diagnosis: No VTE Type: NONE VTE Confirmed by (Test): EXT BILATERAL VENOUS DOPP Severe Sepsis Severe Sepsis Present: No Septic Shock Septic Shock Present: No Miscellaneous Documentation Attending Case [facility] Primary Care Physician: HELIO LENOG MD Patient sees these Specialists cardiology Level of Patient Care: Telemetry GIANCARLO CASTANON 06/27/16 2353: Resident Review Statement Resident Statement: examined this patient, discussed with international trade specialist, agreed with international trade specialist, discussed with family, reviewed images Other Findings: Chief complaint: Worsening of lower extremity edema for one month. This is an 86-year-old gentleman with past medical history significant for mild dementia, CAD status post quadruple bypass, hypertension, severe was brought to the hospital for worsening of lower extremity edema for the past 1 month. Daughter present at bedside who helps providing parts of history. Patient denies chest pain, shortness of breath, syncope, abdominal pain, urinary symptoms. Please see above for more details. Vital signs on admission: Temperature 97.7, pulse rate 62, respiratory rate 20, blood pressure 154/69, oxygen saturation 94% on room air. Physical exam at the time of admission: AAO 3, NAD. HEENT: H NCAT, PERRLA, EOMI, normal pharynx. Neck: Supple, no carotid bruit, no lymphadenopathy, no JVD, no thyromegaly. Cardiovascular: RRR, Systolic murmur. Lungs: CTABL. Abdomen: Normal bowel sounds, soft, NT, ND. Extremities: Lower extremity edema. , Chronic venous stasis changes with blisters, skin erythema noted: 4 x 3" left lower extremity, 4.5 x 5 right lower extremity. Neurology: Normal speech, cranial nerves 3-12 intact, normal strength, normal reflexes, normal sensation. Pertinent lab on admission: CBC unremarkable, BEP: Glucose 147, proBNP 469, alkaline phosphatase 137. Bilateral lower extremity Doppler scan negative for any DVT. Chest x-ray shows mild interstitial pulmonary edema. Trace pleural effusion. Stable enlargement of the cardiac silhouette. Abdominal x-ray shows gas distended colon and stomach within the central abdomen. Moderate volume intracarinal and paucity of small bowel gas. EKG on admission showed sinus rhythm, rate 54, no ST-T wave changes. Problem list/plan: #worsening of lower extremity edema: Worsening of dependent edema versus worsening of heart failure. Patient is on 20 mg by mouth furosemide as outpatient. He has received 40 mg IV furosemide in the ED. Will start the patient on 20 mg IV furosemide BID with close monitoring of I's and O's. Will rule out ACS with serial troponins and EKG. Will obtain an echocardiogram. #Lower extremity skin changes: Patient is afebrile without leukocytosis there is no clinical indication for an infection. Monitor closely, wound consult in the morning. #Severe : Would be cautious with diuresis of the patient given preload dependent state of severe . Please appreciate cardiology recommendations. #Bradycardia: Asymptomatic. Patient is on donepezil, metoprolol, clonidine as outpatient. Continue the certified solid waste facility operator. Continue AUTOMATED CUTTING MACHINE OPERATOR metoprolol with holding parameters. Continue with donepezil and clonidine. #History of hypertension: Chronic/stable. Continue with AUTOMATED CUTTING MACHINE OPERATOR antihypertensives. #DVT prophylaxis: Subcutaneous heparin. #Patient is full code. KYRA MCMILLAN, [facility] 06/28/16 0449: Attending MD Review Statement Attending Statement Attending MD Statement: examined this patient, discuss w/resident/PA/HEALTHCARE SOCIAL WORKER, agreed w/resident/PA/HEALTHCARE SOCIAL WORKER, discussed with family Attending Assessment/Plan: 86 yo M with h/o dementia, CAD s/p CABG, HTN, severe aortic stenosis, carotid artery disease, chronic RBBB, Gilbert's syndrome, vertigo, vasculitis, from assisted living is sent in for evaluation of worsening bilateral LE edema over past 1 month. Daughter reports patient is not compliant with keeping his legs elevated. Patient is on lasix 20 mg daily, and per Dr. Smith would need an intermittent increase in lasix dose if his legs are more swollen. Daughter states that the RN at the facility did not call Dr. Smith and never increased the lasix dose for his swollen legs. She also states that patient has had episodes of lightheadedness over the past 1 week. No LOC. Patient is demented and denies chest pain, COLE or palpitations. While in the ER, patient was a max assist of 2 to help transfer in and out of bed. Patient walks with a walker but needs assistance due to unsteady gait. VSS. No JVD, Chest reduced breath sounds at bases, Abdomen: distended, BS sluggish. LE: b/l pitting pedal edema 3+ extending upto knees, with chronic venous stasis and few erythematous skin changes, not suggestive of cellulitis. Labs: trop neg, proBNP 469. CXR: mild interstitial pulmonary edema and trace pleural effusions. Abdomen Xray: Gas-distended colon and stomach with intracolonic stool. LE doppler: no DVT. EKG: Sinus bradycardia, RBBB, Qtc 467. Echo (2016): EF 65-70%, GARY 0.7 sq.cm, LVH with e/o diastolic dysfunction. 1. LE edema with concerns of diastolic CHF exacerbation (no e/o JVD and low proBNP), in this elderly patient with severe aortic stenosis. Tele admit, strict I/Os, daily weights, IV lasix 20 BID, avoid over diuresis, serial EKG and troponin, obtain Echo, Cardio consult (Dr. Smith). Obtain Wound consult in AM, no e/o cellulitis. 2. Lightheadedness could be multifactorial related to , CHF or arrhythmias. Check orthostats, monitor for arrhythmias. 3. Gait instability, physical deconditioning. Needs PT eval and possible placement. 4. Sinus bradycardia in the setting of medications such as donepezil, metoprolol and clonidine. Check TSH and free T4. 5. Constipation. Initiate bowel regime. DVT ppx Hep SC. Full code.
--- NOTE | 2016-06-27 22:57 | NUR ---
PT BNED ASSIGNMENT 182-1
--- NOTE | 2016-06-27 23:09 | NUR ---
REPORT GIVEN TO MARTHA NEWBY. PT WILL BE TRANPORTED BY ED STAFF.
[2016-06-28 00:28] VITALS: BP 140/80
--- NOTE | 2016-06-28 04:51 | Admission Certification ---
Admission Certification Certification Statement - As attending physician, I certify that at the time of - admission, based on clinical presentation, severity of - symptoms, need for further diagnostic testing and - therapeutic interventions, and risk of adverse outcomes - without in-hospital treatment, in my clinical assessment, - this patient requires an acute hospital stay for a minimum - of two nights or longer. I have also considered psychsocial - factors such as support system, advanced age, financial - issues, cognitive issues, and failed out-patient treatments, - past re-admission history, safety of patient, and lack of - compliance as applicable. Specific rationale supporting this admission is: Worsening LE edema, mild CHF exacerbation, gait instability.
--- NOTE | 2016-06-28 08:23 | PN- Housestaff ---
Subjective Follow-up For: Bilateral lower leg edema Complaints: no complaints Tele-Events Since Last Visit: Normal sinus rhythm with heart rate between 61-65 minute overnight events Subjective: Patient seen and examined at the bedside. He was able to tell the place and time. He is not able to put any active complaints , even after asking in detail. I talked to Ms. Ojeda over the phone who is daughter of the patient. I updated her about the clinical status and plan for today. Review of Systems Constitutional: Denies: no symptoms. Comments: Patient denies for any active complaints Objective Last 24 Hrs of Vital Signs/I&O Vital Signs Date Time Temp Pulse Resp B/P Pulse O2 O2 Flow FiO2 Ox Delivery Rate 06/28 1650 97.7 73 18 112/62 94 Room Air 06/28 1251 Room Air Room Air 06/28 1245 Room Air Room Air 06/28 1033 73 130/70 06/28 1033 73 130/70 06/28 1033 73 130/70 06/28 0833 97.7 63 18 159/79 95 Room Air 06/28 0028 97.6 77 20 140/80 95 Room Air 06/28 0000 94 Room Air 06/27 2238 97.7 62 20 154/69 94 Room Air 06/27 2129 98.0 85 18 148/70 95 Room Air Room Air Intake & Output 06/28 1600 06/28 0800 06/28 0000 Intake Total 680 420 Output Total 6515 549 1221 Balance -520 -260 -1450 Intake, Oral 680 420 Number 0 Bowel Movements Output, Urine 1661 296 2797 Patient 86.183 kg Weight Physical Exam General Appearance: Alert, Cooperative, No Acute Distress Skin: bilateral lower leg pitting edema along with redness, erythema and mild tenderness Cardiovascular: Normal S1, Normal S2, murmur present Lungs: Clear to Auscultation, Normal Air Movement Abdomen: Soft, No Tenderness Neurological: Normal Speech Extremities: No Clubbing, No Cyanosis, 1+ pitting edema Vascular: Normal Pulses, Pulses Symmetrical Current Medications: Current Medications Sig/Supa Start time Last Medication Dose Route Stop Time Status Admin Aspirin Buffered 81 MG DAILY 06/28 1000 AC 06/28 PO 1033 Atorvastatin Calcium 20 MG 1700 06/28 1700 AC PO Clonidine 0.1 MG DAILY 06/28 1000 AC 06/28 PO 1033 Finasteride 5 MG DAILY 06/28 1000 AC 06/28 PO 1033 Folic Acid 1 MG DAILY 06/28 1000 AC 06/28 PO 1033 Furosemide 20 MG BID 06/28 1000 AC 06/28 IV 1032 Furosemide 0 .STK-MED ONE 06/27 2124 DC IV Furosemide 40 MG ONCE ONE 06/28 1999 DC 06/27 IV 06/27 Heparin Sodium 5,000 UNIT Q8 06/28 0200 AC 06/28 (Porcine) SC 1426 Memantine 10 MG BID 06/28 1000 AC 06/28 PO 1033 Metoprolol Tartrate 25 MG BID 06/28 1000 AC 06/28 PO 1033 Omeprazole 40 MG DAILY AC 06/28 0700 AC 06/28 PO 0653 Patient Medication 1 ED .STK-MED ONE 06/28 1336 DC Teaching ED 06/28 1337 Polyethylene Glycol 17 GM DAILY PRN 06/28 0600 AC 06/28 PO 1033 Senna 187 MG AT BEDTIME 06/28 2200 AC PO Tamsulosin HCl 0.4 MG DAILY 06/28 1000 AC 06/28 PO 1033 Trazodone HCl 50 MG BID 06/28 1000 AC 06/28 PO 1033 Last 24 Hrs of Lab/Mark Results Last 24 Hrs of Labs/Mics: Laboratory Tests 06/28/16 0954: TSH Cancelled, Free T4 Cancelled 06/28/16 0245: Troponin I 0.02, TSH 4.820 H, Free T4 0.75 L 06/27/16 1930: Anion Gap 11, Estimated GFR > 60, BUN/Creatinine Ratio 14.4, Glucose 147 H, Calcium 8.4, Total Bilirubin 0.9, AST 18, ALT 35, Alkaline Phosphatase 137 H, Troponin I 0.03, Mrl-H-Maxpreyciqg Pept 469 H, Total Protein 6.8, Albumin 3.7, Globulin 3.1, Albumin/Globulin Ratio 1.2, CBC w Diff NO MAN DIFF REQ, RBC 4.75, MCV 88.4, MCH 29.5, RDW 13.5, MPV 8.1, Gran % 63.5, Lymphocytes % 25.9, Monocytes % 7.9, Eosinophils % 2.4, Basophils % 0.3, Absolute Granulocytes 5.3, Absolute Lymphocytes 2.2, Absolute Monocytes 0.7 H, Absolute Eosinophils 0.2, Absolute Basophils 0, PUBS MCHC 33.4 Assessment/Plan Assessment: This is a 86-year-old male with past medical history significant for alzeihmers dementia, coronary artery disease status post quadruple bypass, severe aortic stenosis, hypertension, hyperlipidemia, bilateral lower extremity leg swelling on Lasix 20 mg daily, insomnia, benign prostatitic hypertrophy, constipation, GERD, diverticulosis, CABG 10 years ago presented to emergency department with chief complaint of worsening bilateral lower extremity edema for a month. He was sent to the emergency department by the visiting nurse with chief complaint of worsening bilateral lower extremity edema and gait instability. Plan - Dependent edema with skin changes ? Cellulitis * Bilateral lower leg erythema along with mild tenderness. Blood counts are normal without any evidence of bandemia or leukocytosis. * We will continue inj Lasix 20 mg IV BID * We will be cautious with diuresis, as patient is having severe aortic stenosis * We will watch for blood pressure and urine output. * Strict intake output charting * Daily weight measurement * If Edema get improved, then we will plan to discharge tomorrow * We'll continue all home medication as before * We also placed a consult for Dr. Smith and will follow his recommendation * I talked to his daughter, Ms. Ojeda, she told that he was well evaluated for repair of severe aortic stenosis at [facility] in 2016. It was told that there is more risk than benefit, after routine surgery as he is having dementia. Diet -heart healthy diet with fluid restriction DVT prophylaxis-anticoagulant aspirin/clopidogrel CODE STATUS-full code Problem List: 1. Leg edema 2. Gait instability Pain Ratin Pain Location: Bilateral lower leg Pain Goal: Remain pain free Pain Plan: Nisp-vg-rjehsvvq Tomorrow's Labs & Rationales: BEP as the patient is on diuretic to follow-up with creatinine DVT/Prophylaxis: pharmacological
[2016-06-28 08:33] VITALS: BP 159/79
--- NOTE | 2016-06-28 15:52 | PN- Att Addend ---
Attending MD Review Statement Attending Statement Attending MD Statement: examined this patient, discuss w/resident/PA/[employer], agreed w/resident/PA/[employer], reviewed EMR data (avail), discussed w/nursing Attending Assessment/Plan: Laboratory Tests 06/28/16 0954: TSH Cancelled, Free T4 Cancelled 06/28/16 0245: Troponin I 0.02, TSH 4.820 H, Free T4 0.75 L 06/27/16 1930: Anion Gap 11, Estimated GFR > 60, BUN/Creatinine Ratio 14.4, Glucose 147 H, Calcium 8.4, Total Bilirubin 0.9, AST 18, ALT 35, Alkaline Phosphatase 137 H, Troponin I 0.03, Jqk-Q-Wguubwclmpc Pept 469 H, Total Protein 6.8, Albumin 3.7, Globulin 3.1, Albumin/Globulin Ratio 1.2, CBC w Diff NO MAN DIFF REQ, RBC 4.75, MCV 88.4, MCH 29.5, RDW 13.5, MPV 8.1, Gran % 63.5, Lymphocytes % 25.9, Monocytes % 7.9, Eosinophils % 2.4, Basophils % 0.3, Absolute Granulocytes 5.3, Absolute Lymphocytes 2.2, Absolute Monocytes 0.7 H, Absolute Eosinophils 0.2, Absolute Basophils 0, PUBS MCHC 33.4 Vital Signs Date Time Temp Pulse Resp B/P Pulse O2 O2 Flow FiO2 Ox Delivery Rate 06/28 1251 Room Air Room Air 06/28 1245 Room Air Room Air 06/28 1033 73 130/70 06/28 1033 73 130/70 06/28 1033 73 130/70 06/28 0833 97.7 63 18 159/79 95 Room Air 06/28 0028 97.6 77 20 140/80 95 Room Air 06/28 0000 94 Room Air 06/27 2238 97.7 62 20 154/69 94 Room Air 06/27 2129 98.0 85 18 148/70 95 Room Air Room Air 06/27 1850 97.9 83 22 155/72 96 patient seen and examined at bedside. Discussed with patient the care plan. Patient has some mild dementia but is able to tell me that he is at [facility]. He is also able to tell his date of . Patient admitted with leg swelling and questionable redness suggestive of cellulitis. On examination patient does not appear to have cellulitis. The swelling in the lower extremity could be dependent edema rather than CHF exacerbation. We will continue with diuresis and see how he does. We will plan for discharge once leg edema is better and patient stays afebrile. Patient does have severe aortic stenosis and we will be cautious with diuresis.
[2016-06-28 16:50] VITALS: BP 112/62
--- NOTE | 2016-06-28 19:27 | Patient Discharge Instructions ---
Discharge Instructions General Discharge Information You were seen/treated for: Bilateral lower leg edema and questionable cellulitis Special Instructions: Please follow-up with your chief concierge within a week of discharge Please follow-up with your PCP within a week of discharge Diet Recommended Diet: Heart Healthy, fluid restriction Acute Coronary Syndrome Inclusion Criteria At DC or during hospital stay patient has or had the following: ACS DIAGNOSIS No Discharge Core Measures Meds if any: Prescribed or Continued at Discharge Meds if any: NOT Prescribed or Continued at Discharge Congestive Heart Failure Inclusion Criteria At DC or during hospital stay patient has or had the following: CHF DIAGNOSIS No Discharge Core Measures Meds if any: Prescribed or Continued at Discharge Meds if any: NOT Prescribed or Continued at Discharge Cerebrovascular accident Inclusion Criteria At DC or during hospital stay patient has or had the following: CVA/TIA Diagnosis No Discharge Core Measures Meds if any: Prescribed or Continued at Discharge Meds if any: NOT Prescribed or Continued at Discharge Venous thromboembolism Inclusion Criteria VTE Diagnosis No VTE Type NONE VTE Confirmed by (Test) NONE Discharge Core Measures - Per Current guidelines, there needs to be overlap - treatment for the first 5 days of Warfarin therapy. - If discharged on Warfarin prior to 5 days of - overlap therapy, the patient will need to be - assessed for post discharge needs including - *Post discharge parental anticoagulation - *Warfarin and/or parental anticoagulation education - *Follow up date to check INR post discharge At least 5 days overlap therapy as Inpatient No Meds if any: Prescribed or Continued at Discharge Warfarin No Note: Overlap Therapy is Warfarin and Anticoagulant Meds if any: NOT Prescribed or Continued at Discharge
[2016-06-29 00:54] VITALS: BP 102/56
[2016-06-29 08:00] VITALS: BP 114/68
--- NOTE | 2016-06-29 08:14 | PN- Housestaff ---
Subjective Follow-up For: Bilateral lower leg edema, probably secondary to CHF Complaints: no complaints Tele-Events Since Last Visit: Normal sinus rhythm, heart rate between 59-64 Subjective: Patient is seen and examined at the bedside. He is not able to complain for anything probably because of his dementia. Review of Systems Constitutional: Denies: no symptoms. Comments: Patient is not able to complain for anything, probably secondary to dementia Objective Last 24 Hrs of Vital Signs/I&O Vital Signs Date Time Temp Pulse Resp B/P Pulse O2 O2 Flow FiO2 Ox Delivery Rate 06/29 0851 66 114/68 / 0851 66 114/68 06/29 0851 66 114/68 06/29 0800 97.6 66 18 114/68 93 Room Air 06/29 0054 98.1 67 18 102/56 93 Room Air 06/28 2130 61 110/60 06/28 1650 97.7 73 18 112/62 94 Room Air 06/28 1600 94 Room Air 06/28 1251 Room Air Room Air 06/28 1245 Room Air Room Air Intake & Output 06/29 1600 06/29 0800 06/29 0000 Intake Total 440 Output Total 200 350 Balance -200 90 Intake, Oral 440 Output, Urine 200 350 Physical Exam General Appearance: Alert, Oriented X3, Cooperative, No Acute Distress Skin: bilateral lower leg edema and mild pitting edema Cardiovascular: Normal S1, Normal S2, murmur present Lungs: Clear to Auscultation Abdomen: Soft, No Tenderness Neurological: Normal Speech, he is not having recent and remote memory though know that he is hospital and can tell time Extremities: No Clubbing, pitting edema, redness on the magana Vascular: Normal Pulses, Pulses Symmetrical Current Medications: Current Medications Sig/Supa Start time Last Medication Dose Route Stop Time Status Admin Aspirin Buffered 81 MG DAILY 06/28 1000 AC 06/29 PO 0851 Atorvastatin Calcium 20 MG 1700 06/28 1700 AC 06/28 PO 1916 Clonidine 0.1 MG DAILY 06/28 1000 AC 06/29 PO 0851 Finasteride 5 MG DAILY 06/28 1000 AC 06/29 PO 0851 Folic Acid 1 MG DAILY 06/28 1000 AC 06/29 PO 0851 Furosemide 20 MG BID 06/28 1000 AC 06/29 IV 0851 Heparin Sodium 5,000 UNIT Q8 06/28 0200 AC 06/29 (Porcine) SC 0607 Memantine 10 MG BID 06/28 1000 AC 06/29 PO 0851 Metoprolol Tartrate 25 MG BID 06/28 1000 AC 06/29 PO 0851 Omeprazole 40 MG DAILY AC 06/28 0700 AC 06/29 PO 0607 Patient Medication 1 ED .STK-MED ONE 06/28 1336 [place] Teaching ED 06/28 1337 Polyethylene Glycol 17 GM DAILY PRN 06/28 0600 AC 06/28 PO 1033 Potassium Chloride 20 MEQ ONCE ONE 06/29 1130 AC PO 06/29 1131 Senna 187 MG AT BEDTIME 06/28 2200 AC 06/28 PO 2130 Tamsulosin HCl 0.4 MG DAILY 06/28 1000 AC 06/29 PO 0851 Trazodone HCl 50 MG BID 06/28 1000 AC 06/29 PO 0851 Last 24 Hrs of Lab/Mark Results Last 24 Hrs of Labs/Mics: Laboratory Tests 06/29/16 0625: Anion Gap 8, Estimated GFR > 60, BUN/Creatinine Ratio 18.2 Assessment/Plan Assessment: This is a 86-year-old male with past medical history significant for alzeihmers dementia, coronary artery disease status post quadruple bypass, severe aortic stenosis, hypertension, hyperlipidemia, bilateral lower extremity leg swelling on Lasix 20 mg daily, insomnia, benign prostatitic hypertrophy, constipation, GERD, diverticulosis, CABG 10 years ago presented to emergency department with chief complaint of worsening bilateral lower extremity edema for a month. He was sent to the emergency department by the visiting nurse with chief complaint of worsening bilateral lower extremity edema and gait instability. Plan - Dependent edema with skin changes ? Cellulitis * Bilateral lower leg erythema along with mild tenderness. Blood counts are normal without any evidence of bandemia or leukocytosis.Venouse doppler is negative for DVT. * We will continue inj Lasix 20 mg IV BID for next 24 hrs * Creatinine increased 0.9 to 1.1 * We will follow Dr. Smith recommendation * I talked to his daughter, Ms. Ojeda on 06/28/2016, she told that he was well evaluated for repair of severe aortic stenosis at [facility] in 2016. It was told that there is more risk than benefit, after routine surgery as he is having dementia. * We supplemented 20 mEq of K to keep target of >4 * f/u echo showed - Small left ventricular cavity,Mild concentric LVH,LVEF60%. Severe aortic stenosis. * We will be cautious with diuresis, as patient is having severe aortic stenosis * We will watch for blood pressure and urine output. * Strict intake output charting * Daily weight measurement * If Edema get improved, then we will plan to discharge tomorrow * We'll continue all home medication as before Diet -heart healthy diet with fluid restriction DVT prophylaxis-anticoagulant aspirin/clopidogrel CODE STATUS-full code Problem List: 1. Bilateral lower extremity edema 2. Rash 3. Severe aortic stenosis Pain Ratin Pain Location: both legs Pain Goal: Remain pain free Pain Plan: avoid NSAIds Tomorrow's Labs & Rationales: BEP -patient is on IV Lasix, to follow-up electrolytes and creatinine DVT/Prophylaxis: mechanical, pharmacological
--- NOTE | 2016-06-29 10:45 | Cons- Cardiology ---
General Information and HPI Consulting Request Date of Consult: 06/29/16 Requested By: KYRA MCMILLAN,EFRAIN Reason for Consult: Increasing bilateral lower extremity edema. Source of Information: old records Exam Limitations: unable to give history, dementia History of Present Illness: Mr. Te Daniel is an 86-year-old white male with a hx of Alzheimer's dementia, HTN, HLD, pre-DM, carotid artery disease (mild by carotid ultrasound 10/06/2015) , CAD (s/p CABG x4 09/26/2001 w/ NEGRON to LAD and SVGs to the Dx of LAD, M1 of LCx, and distal RCA; last pharmacologic stress test 07/2008 negative for ischemia), conduction disease (chronic RBBB), and valvular heart disease (severe range aortic stenosis by echocardiogram 10/13/2015 that also revealed moderate LVH with impaired relaxation and preserved EF 65-70%), who presented to the ED from his SNF with increasing bilateral lower extremity edema, cardiomegaly, mild interstitial pulmonary edema, and trace bilateral pleural effusions on CXR, but only modestly elevated NT-PRO BNP. Mr. Daniel can give no reliable history, but denies any shortness of breath, orthopnea, lower extremity edema, etc. We did discuss management options with family members in regard to his severe aortic stenosis back in 2015, and at the time they wanted to consider TAVR. As such we had Mr. Daniel evaluated at the [facility] by the Structural Heart Team (Panchito Garcia M.D.) on 11/06/2015. Mr. Daniel was not felt to be a good candidate for TAVR. The family was comfortable with this decision. Allergies/Medications Allergies: Coded Allergies: Antihistamines - Alkylamine (UNKNOWN 06/25/15) Home Med List: Acetaminophen (Pain Reliever) 500 MG CAPSULE 2 TAB PO BID PRN PAIN (Reported) Aspirin (Ecotrin*) 81 MG TABLET. 1 TAB PO DAILY HEART/BLOOD (Reported) Atorvastatin Calcium (Lipitor) 20 MG TABLET 1 TAB PO DAILY CHOLESTEROL ( Reported) Clonidine HCl 0.1 MG TABLET 1 TAB PO DAILY HTN (Reported) Cyanocobalamin (Vitamin B-12) 1,000 MCG TABLET 1 TAB PO DAILY SUPPLEMENT ( Reported) Donepezil HCl (Aricept) 10 MG TABLET 1 TAB PO QPM MEMORY (Reported) Finasteride 5 MG TABLET 1 TAB PO DAILY PROSTATE (Reported) Folic Acid 1 MG TABLET 1 TAB PO DAILY SUPPLEMENT (Reported) Furosemide 20 MG TABLET 1 TAB PO DAILY DIURETIC (Reported) Memantine HCl (Namenda) 10 MG TABLET 1 TAB PO BID MEMORY (Reported) Metoprolol Tartrate 25 MG TABLET 1 TAB PO BID HTN (Reported) Nystatin (Nyamyc) 100,000 UNIT/GRAM POWDER 1 FALLON TOP AD PRN UNKNOWN (Reported ) Omeprazole 40 MG CAPSULE.DR 1 CAP PO DAILY AC GI (Reported) Polyethylene Glycol 3350 (Miralax) 17 GRAM POWD.PACK 1 PAC PO DAILY PRN GI ( Reported) dissolve in water Selenium Sulfide 2.5 % SHAMPOO 1 FALLON TOP BID ABD & LEGS (Reported) Sennosides (Senna) 8.6 MG TABLET 1 TAB PO Monday GI (Reported) Tamsulosin HCl (Flomax) 0.4 MG CAP.ER.24H 1 CAP PO DAILY BPH (Reported) Trazodone HCl 50 MG TABLET 1 TAB PO BID UNKNOWN (Reported) Triamcinolone Acetonide 0.1 % OINT...G. 1 FALLON TOP BID PRN ABD & LEGS ( Reported) apply to affected area(s) Review of Systems Review of Systems: Unobtainable, secondary to dementia. Past History Travel History Traveled to [place] past 21 day No Medical History Blood Transfusion Hx: Yes Neurological: Alzheimer's disease EENT: NONE Cardiovascular: aortic stenosis, CAD, hypertension, hyperlipidemia, QUAD BYPASS 70% CAROTID ARTERY OCCLUS CHRONIC EDEMA Respiratory: NONE Gastrointestinal: diverticulosis Hepatic: NONE Renal: benign prost hyperplasia Musculoskeletal: NONE Psychiatric: NONE Endocrine: obesity, pre-DM Blood Disorders: vasculitis BACTEREMIA Cancer(s): NONE Surgical History Surgical History: CABG ( 10 YRS AGO), QUAD BYPASS Family History Relations & Conditions If Any: SON, , Age 30-40. Relation not specified for: FH: leukemia Psychosocial History Services at Home: Home Health Aide Smoking Status: Never Smoked ETOH Use: denies use Illicit Drug Use: denies illicit drug use Exam & Diagnostic Data Vital Signs and I&O Vital Signs Date Time Temp Pulse Resp B/P Pulse O2 O2 Flow FiO2 Ox Delivery Rate 06/29 0851 66 114/06/29 0851 66 11406/29 0851 66 11406/29 0800 97.6 66 18 114/68 93 Room Air 06/29 0054 98.1 67 18 102/56 93 Room Air 06/28 2130 61 110/60 06/28 1650 97.7 73 18 112/62 94 Room Air 06/28 1600 94 Room Air 06/28 1251 Room Air Room Air 06/28 1245 Room Air Room Air Intake & Output 06/29 1600 06/29 0800 06/29 0000 06/28 1600 06/28 0800 06/28 0000 Intake Total 440 680 420 Output Total 063 180 3516 680 1450 Balance -200 90 -520 -260 -1450 Intake, Oral 440 680 420 Number 0 Bowel Movements Output, Urine 642 287 9101 680 1450 Patient 190 lb Weight Physical Exam: Well developed, obese elderly male in no acute distress. Vital signs: See above. HEENT: Normocephalic, atraumatic, EOMI, slightly dry mucous membranes. Neck: No JVD, no bruits. Lungs: Decreased breath sounds at the bases and otherwise clear. Heart: S1, diminished S2, and grade 2/6 systolic ejection type murmur best heard at the base. PMI fifth ICS at [facility]. Abdomen: Soft, nontender, positive bowel sounds. Extremities: 1+ bilateral lower extremity edema. Labs/Mark Results: Laboratory Tests 06/29 06/28 06/28 0625 0954 0245 Chemistry Sodium (137 - 145 mmol/L) 136 L Potassium (3.5 - 5.1 mmol/L) 3.8 Chloride (98 - 107 mmol/L) 97 L Carbon Dioxide (22 - 30 mmol/L) 31 H Anion Gap (5 - 16) 8 BUN (9 - 20 mg/dL) 20 Creatinine (0.7 - 1.2 mg/dL) 1.1 Estimated GFR (>60 ml/min) > 60 BUN/Creatinine Ratio (7 - 25 %) 18.2 Troponin I (<0.11 ng/ml) 0.02 TSH (0.270 - 4.200 uIU/mL) Cancelled 4.820 H Free T4 (0.85 - 1.93 ng/dL) Cancelled 0.75 L 06/27 1930 Chemistry Sodium (137 - 145 mmol/L) 137 Potassium (3.5 - 5.1 mmol/L) 4.1 Chloride (98 - 107 mmol/L) 100 Carbon Dioxide (22 - 30 mmol/L) 27 Anion Gap (5 - 16) 11 BUN (9 - 20 mg/dL) 13 Creatinine (0.7 - 1.2 mg/dL) 0.9 Estimated GFR (>60 ml/min) > 60 BUN/Creatinine Ratio (7 - 25 %) 14.4 Glucose (65 - 99 mg/dL) 147 H Calcium (8.4 - 10.2 mg/dL) 8.4 Total Bilirubin (0.2 - 1.3 mg/dL) 0.9 AST (17 - 59 U/L) 18 ALT (21 - 72 U/L) 35 Alkaline Phosphatase (< 127 U/L) 137 H Troponin I (<0.11 ng/ml) 0.03 Bcs-S-Jrzpqvefoow Pept (<125 pg/mL) 469 H Total Protein (6.3 - 8.2 g/dL) 6.8 Albumin (3.5 - 5.0 g/dL) 3.7 Globulin (1.9 - 4.2 gm/dL) 3.1 Albumin/Globulin Ratio (1.1 - 2.2 %) 1.2 Hematology CBC w Diff NO MAN DIFF REQ WBC (4.8 - 10.8 /CUMM) 8.3 RBC (4.70 - 6.10 /CUMM) 4.75 Hgb (14.0 - 18.0 G/DL) 14.0 Hct (42 - 52 %) 42.0 MCV (80.0 - 94.0 FL) 88.4 MCH (27.0 - 31.0 PG) 29.5 RDW (11.5 - 14.5 %) 13.5 Plt Count (130 - 400 /CUMM) 181 MPV (7.4 - 10.4 FL) 8.1 Gran % (42.2 - 75.2 %) 63.5 Lymphocytes % (20.5 - 51.1 %) 25.9 Monocytes % (1.7 - 9.3 %) 7.9 Eosinophils % (0 - 5 %) 2.4 Basophils % (0.0 - 2.0 %) 0.3 Absolute Granulocytes (1.4 - 6.5 /CUMM) 5.3 Absolute Lymphocytes (1.2 - 3.4 /CUMM) 2.2 Absolute Monocytes (0.10 - 0.60 /CUMM) 0.7 H Absolute Eosinophils (0.0 - 0.7 /CUMM) 0.2 Absolute Basophils (0.0 - 0.2 /CUMM) 0 PUBS MCHC (33.0 - 37.0 G/DL) 33.4 Diagnostic Data EKG Results (06/28/2016) sinus rhythm, right bundle-branch block, probable left ventricular hypertrophy, and nondiagnostic lateral ST segment depression. Less ectopy when compared to previous tracing (06/27/2016). CXR Results (06/27/2016) - Mild interstitial pulmonary edema and trace pleural effusions. Stable enlargement of the cardiac silhouette. Other Results Bilateral lower extremity ultrasound (06/27/2016) Normal triplex scan without evidence of deep venous thrombosis involving the bilateral lower extremities. Assessment/Plan Assessment/Plan Mr. Daniel is an 86-y o white male with a hx of dementia, HTN, HLD, pre-DM, carotid artery disease (mild by carotid ultrasound 10/06/2015), CAD (s/p CABG x4 09/26/2001 w/ NEGRON to LAD and SVGs to the Dx of LAD, M1 of LCx, and distal RCA; last pharmacologic stress test 07/2008 negative for ischemia), conduction disease (chronic RBBB), and valvular heart disease (severe range aortic stenosis by echocardiogram 10/13/2015 that also revealed moderate LVH with impaired relaxation and preserved EF 65-70%), who presented to the ED from his SNF with increasing bilateral lower extremity edema, cardiomegaly, mild interstitial pulmonary edema, and trace bilateral pleural effusions on CXR,, but only modestly elevated NT-PRO BNP. Mr. Daniel cannot give any reliable history, but has had a reasonable diuresis ( over 2 L) since admission and now has a modest elevation in his BUN/creatinine and CO2 likely on that basis. Recommendations: * Continue on telemetry. * Repeat CXR and of less interstitial pulmonary edema cut back on diuresis. * Repeat echocardiogram to reassess his LV systolic/diastolic function, degree of LVH, degree of LVH, RV function, estimated PA systolic pressure, etc. * Replete potassium and check magnesium. * Check glycosylated hemoglobin A1c. * Will discuss the situation further with Mr. Daniel's daughter Lynette, but suspect they will want to continue with conservative management given his age and multiple comorbidities. * Continue other cardiac medications. * Continue DVT prophylaxis. Further recommendations will follow, Thank you. Consult Acknowledgment - Thank you for your consult request.
--- NOTE | 2016-06-29 12:58 | ECHOCARDIOGRAM REPORT ---
HELENA MCFARLANE Age: 86 : 1930 Gender: M Exam Date: 06/28/2016 12:57 Exam Location: 1 [address] Ht (in): 70 Wt (lb): 190 BSA: 2.08 BP: 130 / 70 Ordering Physician: BEATRICE CASTANON, Referring Physician: Felipe Smith MD Technologist: Cherri Pacheco [facility] Room Number: 182 Indications: HEART FAILURE Rhythm: Technical Quality: FINDINGS Left Ventricle Right Ventricle Right Atrium Left Atrium Mitral Valve Aortic Valve Tricuspid Valve Pulmonic Valve Pericardium Great Vessels CONCLUSIONS Felipe Smith M.D. (Electronically Signed) Final Date: 29 June 2016 12:57 MEASUREMENTS (Male / Female) Normal Values 2D ECHO LV Diastolic Diameter PLAX 2.9 cm 4.2 - 5.9 / 3.9 - 5.3 cm LV Systolic Diameter PLAX 2.0 cm 2.1 - 4.0 cm LV Fractional Shortening PLAX 31.0 % 25 - 46 % LV Ejection Fraction 2D Teich 60.5 % IVS Diastolic Thickness 1.3 cm LVPW Diastolic Thickness 1.3 cm LV Relative Wall Thickness 0.9 RV Internal Dim ED PLAX 3.5 cm 1.9 - 3.8 cm LVOT Diameter 1.8 cm Aortic Root Diameter 3.4 cm LA Systolic Diameter LX 4.1 cm 3.0 - 4.0 / 2.7 - 3.8 cm LA Volume 35.0 cm 18 - 58 / 22 - 52 cm LA Volume Index 16.8 cm/m 16 - 28 cm/m DOPPLER AV Peak Velocity 441.0 cm/s AV Peak Gradient 77.8 mmHg AV Mean Velocity 331.0 cm/s AV Mean Gradient 49.0 mmHg AV Velocity Time Integral 89.7 cm LVOT Peak Velocity 109.0 cm/s LVOT Peak Gradient 4.8 mmHg LVOT Mean Velocity 79.0 cm/s LVOT Mean Gradient 3.0 mmHg LVOT Velocity Time Integral 24.0 cm LVOT Stroke Volume 61.1 cm AV Area Cont Eq vti 0.7 cm AV Area Cont Eq pk 0.6 cm MV Peak Velocity 107.0 cm/s MV Peak Gradient 4.6 mmHg MV Mean Velocity 59.8 cm/s MV Mean Gradient 2.0 mmHg Mitral E Point Velocity 60.7 cm/s Mitral A Point Velocity 105.0 cm/s Mitral E to A Ratio 0.6 MV PHT Velocity 113.0 cm/s MV Deceleration Elliott 602.0 cm/s MV Pressure Half Time 56.3 ms MV Area PHT 3.9 cm MV Deceleration Time 349.0 ms PV Peak Velocity 95.1 cm/s PV Peak Gradient 3.6 mmHg PV Mean Velocity 59.1 cm/s PV Mean Gradient 2.0 mmHg PV Velocity Time Integral 16.0 cm LV E' Lateral Velocity 4.4 cm/s Mitral E to LV E' Lateral Ratio 13.8 LV E' Septal Velocity 3.6 cm/s Mitral E to LV E' Septal Ratio 16.8
--- NOTE | 2016-06-29 16:07 | PN- Att Addend ---
Attending MD Review Statement Attending Statement Attending MD Statement: examined this patient, discuss w/resident/PA/MANAGER INFRASTRUCTURE, agreed w/resident/PA/MANAGER INFRASTRUCTURE, reviewed EMR data (avail), discussed w/nursing, discussed w/ case mgmt Attending Assessment/Plan: Laboratory Tests 06/29/16 1055: Hemoglobin A1c Cancelled 06/29/16 0625: Anion Gap 8, Estimated GFR > 60, BUN/Creatinine Ratio 18.2, Magnesium 1.9 Vital Signs Date Time Temp Pulse Resp B/P Pulse O2 O2 Flow FiO2 Ox Delivery Rate 06/29 0851 66 114/68 06/29 0851 66 114/68 06/29 0851 66 114/68 06/29 0800 97.6 66 18 114/68 93 Room Air / 0054 98.1 67 18 102/56 93 Room Air 06/28 2130 61 110/60 04/ 1650 97.7 73 18 112/62 94 Room Air Patient seen and examined at bedside. Discussed with patient the care plan. Patient seen by cardiology and they plan to continue with 1 more day of IV Lasix. Echocardiogram done reviewed and shows again severe aortic stenosis with aortic wall area of 0.7 cm. If patient remains hemodynamically stable possible discharge tomorrow.
--- NOTE | 2016-06-29 16:34 | RADIOLOGY REPORT ---
EXAMINATION: XR CHEST CLINICAL INFORMATION: Bilateral leg edema. COMPARISON: Chest done on 06/27/2016. TECHNIQUE: 2 views of the chest were obtained. FINDINGS: Persistent stable mild diffuse bilateral prominent interstitial linear lung markings are noted, nonspecific in appearance, may represent interstitial edema, infiltrate, fibrosis, combination thereof, appear similar to prior study dated 06/27/2016. Trace amount of left-sided pleural effusion is noted. The cardiomediastinal silhouette is moderately enlarged, unchanged. Compared to prior study, given the difference in the technique, there is no significant interval change present. IMPRESSION: No significant change.
[2016-06-29 17:22] VITALS: BP 120/60
[2016-06-29 23:56] VITALS: BP 118/64
--- NOTE | 2016-06-30 07:29 | PN- Housestaff ---
Subjective Follow-up For: Leg edema, probably secondary to acute CHF Severe aortic stenosis Complaints: no complaints Subjective: Patient seen and examined at the bedside. He was not having any active complaints. Intake/output -1540/2230,-690. Vital signs stable.Mg -1.9, K-3.8. Review of Systems Constitutional: Denies: no symptoms. Comments: Cannot comment because of patient's dementia and clinical condition Objective Last 24 Hrs of Vital Signs/I&O Vital Signs Date Time Temp Pulse Resp B/P Pulse O2 O2 Flow FiO2 Ox Delivery Rate 06/29 2356 97.9 60 20 118/64 95 Room Air / 2247 60 128/82 /05 1722 98.1 56 20 120/60 94 Room Air / 0851 66 114/68 04/ 0851 66 114/68 06/29 0851 66 114/68 / 0800 97.6 66 18 114/68 93 Room Air Intake & Output 06/30 0800 04 0000 06/29 1600 Intake Total 490 Output Total 400 300 Balance 90 -300 Intake, IV 10 Intake, Oral 480 Output, Urine 400 300 Physical Exam General Appearance: Alert, Cooperative, No Acute Distress Skin: bilateral lower leg edema and erythema. Edema at the ankle joint has been decreased Cardiovascular: Normal S1, Normal S2, murmur present Lungs: Clear to Auscultation, Normal Air Movement Abdomen: Soft, No Tenderness Neurological: Normal Speech, although demented Extremities: No Clubbing, No Cyanosis, mild edema Vascular: Normal Pulses, Pulses Symmetrical Current Medications: Current Medications Sig/Supa Start time Last Medication Dose Route Stop Time Status Admin Aspirin Buffered 81 MG DAILY 06/28 1000 AC 06/29 PO 0851 Atorvastatin Calcium 20 MG 1700 06/28 1700 AC 06/29 PO 1910 Clonidine 0.1 MG DAILY 06/28 1000 AC 06/29 PO 0851 Finasteride 5 MG DAILY 06/28 1000 AC 06/29 PO 0851 Folic Acid 1 MG DAILY 06/28 1000 AC 06/29 PO 0851 Furosemide 20 MG BID 06/28 1000 AC 06/29 IV 2248 Heparin Sodium 5,000 UNIT Q8 06/28 0200 AC 06/30 (Porcine) SC 0522 Memantine 10 MG BID 06/28 1000 AC 06/29 PO 2248 Metoprolol Tartrate 25 MG BID 06/28 1000 AC 06/29 PO 2247 Omeprazole 40 MG DAILY AC 06/28 0700 AC 06/30 PO 0522 Polyethylene Glycol 17 GM DAILY PRN 06/28 0600 AC 06/28 PO 1033 Potassium Chloride 20 MEQ ONCE ONE 06/29 1130 DC 06/29 PO 06/29 1131 1331 Senna 187 MG AT BEDTIME 06/28 2200 AC 06/29 PO 2248 Tamsulosin HCl 0.4 MG DAILY 06/28 1000 AC 06/29 PO 0851 Trazodone HCl 50 MG BID 06/28 1000 AC 06/29 PO 2248 Last 24 Hrs of Lab/Mark Results Last 24 Hrs of Labs/Mics: Laboratory Tests 06/29/16 1055: Hemoglobin A1c Cancelled Assessment/Plan Assessment: This is a 86-year-old male with past medical history significant for alzeihmers dementia, coronary artery disease status post quadruple bypass, severe aortic stenosis, hypertension, hyperlipidemia, bilateral lower extremity leg swelling on Lasix 20 mg daily, insomnia, benign prostatitic hypertrophy, constipation, GERD, diverticulosis, CABG 10 years ago presented to emergency department with chief complaint of worsening bilateral lower extremity edema for a month. He was sent to the emergency department by the visiting nurse with chief complaint of worsening bilateral lower extremity edema and gait instability. Plan - Dependent edema with skin changes ? Cellulitis, Severe Aortic stenosis leading to acute CHF * Bilateral lower leg erythema along with mild tenderness. Blood counts are normal without any evidence of bandemia or leukocytosis.Venouse doppler is negative for DVT. * Today fluid negative balance of 410, discussed with Dr smith and asked as pt had around 3L of total diuresis. He still think that we should diuresed him for more one day than plan for discharge. * We will give inj Lasix 40 mg in morning and continue 20mg in evening. * Creatinine increased 0.9 to 1.1 * We will follow Dr. Smith recommendation * I talked to his daughter, Ms. Ojeda on 06/28/2016, she told that he was well evaluated for repair of severe aortic stenosis at [place] in 2016. It was told that there is more risk than benefit, after routine surgery as he is having dementia. * We supplemented 20 mEq of K to keep target of >4 * f/u echo showed - Small left ventricular cavity,Mild concentric LVH,LVEF60%. Severe aortic stenosis. * We will be cautious with diuresis, as patient is having severe aortic stenosis * Strict intake output charting * Daily weight measurement * If Edema get improved, then we will plan to discharge tomorrow * We'll continue all home medication as before Diet -heart healthy diet with fluid restriction DVT prophylaxis-anticoagulant aspirin/clopidogrel CODE STATUS-full code Problem List: 1. Alzheimer disease 2. Severe aortic stenosis Pain Ratin Pain Location: Bilateral lower legs Pain Goal: Remain pain free Pain Plan: Avoid NSAIDs Tomorrow's Labs & Rationales: Not required as patient is discharging DVT/Prophylaxis: mechanical, pharmacological
[2016-06-30] MEDS ORDERED: FUROSEMIDE20 M1 PO (07:40)
[2016-06-30 08:55] VITALS: BP 124/80
--- NOTE | 2016-06-30 15:23 | PN- Att Addend ---
Attending MD Review Statement Attending Statement Attending MD Statement: examined this patient, discuss w/resident/PA/SAS STATISTICAL PROGRAMMER, agreed w/resident/PA/SAS STATISTICAL PROGRAMMER, reviewed EMR data (avail), discussed w/nursing Attending Assessment/Plan: Laboratory Tests 06/30/16 1020: Anion Gap 9, Estimated GFR > 60, BUN/Creatinine Ratio 18.2 Vital Signs Date Time Temp Pulse Resp B/P Pulse O2 O2 Flow FiO2 Ox Delivery Rate 06/30 1120 68 124/84 06/30 1119 68 124/84 06/30 0855 97.6 60 18 124/80 94 Room Air 06/29 2356 97.9 60 20 118/64 95 Room Air 06/29 2247 60 128/82 06/29 1722 98.1 56 20 120/60 94 Room Air Patient seen and examined at bedside. Patient has underlying dementia and forgets thing. Patient seen by cardiology and they want to increase his Lasix to 40 mg IV today and monitor his intake and output to see if his leg swelling improves. If stable then we will switch to oral Lasix tomorrow and possible discharge to home tomorrow
--- NOTE | 2016-06-30 15:50 | Discharge Summary ---
Visit Information Visit Dates Admission Date: 06/27/16 Discharge Date: 07/01/16 Hospital Course Course Attending Physician: EFRAIN RAE MD Primary Care Physician: HELIO LEONG MD Hospital Course: Mr. Daniel is a 86-year-old male with past medical history significant for alzeihmers dementia, CAD s/p 4 vessel CABG 10 years ago, severe aortic stenosis, HTN, HLD, BPH, GERD, diverticulosis, who presented to ED with complaints of worsening bilateral lower extremity edema. Vitals on admission were stable. Physical exam revealed: No JVD, reduced breath sounds at bases, Abdomen: distended, BS sluggish. LE: b/l pitting pedal edema 3+ extending upto knees, with chronic venous stasis and few erythematous skin changes, not suggestive of cellulitis. Labs on admission: trop neg, proBNP 469. CXR: mild interstitial pulmonary edema and trace pleural effusions. Abdomen Xray: Gas-distended colon and stomach with intracolonic stool. LE doppler ruled out a DVT. EKG: Sinus bradycardia, RBBB, Qtc 467. He was managed in the inpatient setting for acute decompensated congestive heart failure: * He was diuresed with intravenous Lasix, kept on a low salt diet and monitored with daily weights and strict ins and outs. He was seen by his manufacturing assistant, Dr. Smith, and was instructed to follow-up with Dr. Smith within 1-2 weeks. * He does have significant severe aortic stenosis with aortic valve area 0.7 cm , however per the family they would not like to pursue TAVR at the moment. * Diuresis with intravenous Lasix, he was discharged however his home Lasix dose was increased from 20 BID to 40 mg in the morning, and 20mg in the evening. * Again patient was encouraged to follow a low-salt diet, maintain leg elevation and follow-up with Dr. Smith in 1 week of discharge. * Please check BEP to monitor for potassium in 1 week and consdier potassium supplementation if K is low. Please note that the patients PPI was also discontinued and he was switched to 20mg of famotidine for reflux, as H2 blockers are generally considered more benign medications. Allergies: Coded Allergies: Antihistamines - Alkylamine (UNKNOWN 06/25/15) Significant Procedures: SERVICE DATE: 06/28/16- EXAM TYPE: CARD - ECHO (COMPLETE) W/CONTRAST ADDENDUM: HELENA DANIEL Age: 86 : 1930 Gender: M Exam Date: 06/28/2016 12:57 Exam Location: [address] Ht (in): 70 Wt (lb): 190 BSA: 2.08 BP: 130 / 70 Ordering Physician: BEATRICE CASTANON, Referring Physician: Surekha Smith MD Technologist: Cherri Pacheco [facility] Room Number: 182 Indications: HEART FAILURE Rhythm: Sinus Technical Quality: Poor, Technically difficult study FINDINGS Left Ventricle Small left ventricular cavity. Mild concentric left ventricular hypertrophy. No obvious regional wall motion abnormalities. Normal left ventricular ejection fraction visually estimated at 60%. Abnormal relaxation filling pattern of the left ventricle. Right Ventricle Mild right ventricular dilatation. Right Atrium Normal right atrial size. Left Atrium Normal left atrial size. Mitral Valve Moderate mitral annular calcification. Mitral valve thickened. Trace mitral regurgitation. Aortic Valve Diffuse thickening of the aortic valve cusps with reduced excursion. Mild aortic regurgitation. Severe aortic stenosis. Tricuspid Valve Structurally normal tricuspid valve. No tricuspid regurgitation. Unable to estimate the right ventricular systolic pressure. Pulmonic Valve Pulmonic valve not well visualized, grossly normal. No pulmonic regurgitation. Pericardium No pericardial effusion. Great Vessels Normal size aortic root. CONCLUSIONS Small left ventricular cavity. Mild concentric left ventricular hypertrophy. No obvious regional wall motion abnormalities. Normal left ventricular ejection fraction visually estimated at 60%. Abnormal relaxation filling pattern of the left ventricle. Mild right ventricular dilatation. Normal atrial size. Trace mitral regurgitation. Mild aortic regurgitation. Severe aortic stenosis. Disposition Summary Disposition Principal Diagnosis: Acute decompensated CHF Additional Diagnosis: HTN BPH Severe aortic stenosis Discharge Disposition: SNF Discharge Instructions General Discharge Information Code Status: Full Code Patient's Diet: low salt, heart healthy Patient's Activity: as tolerated Follow-Up Instructions/Appts: Please follow up with Dr. Smith in 1 week Please follow-up with your primary care provider in 2 weeks. Please note the new change in your Lasix dosing Medications at Discharge Discharge Medications: Stop taking the following medications: Omeprazole (Omeprazole) 40 MG CAPSULE.DR ORAL DAILY BEFORE BREAKFAST Continue taking these medications: Cyanocobalamin (Vitamin B-12) 1,000 MCG TABLET 1 Tablet ORAL DAILY Comments: Last Taken:NOT GIVEN IN THE HOSPITAL Time: Metoprolol Tartrate (Metoprolol Tartrate) 25 MG TABLET 1 Tablet ORAL TWICE DAILY Comments: Last Taken:07/01/16 Time:9 AM Memantine HCl (Namenda) 10 MG TABLET 1 Tablet ORAL TWICE DAILY Comments: Last Taken:07/01/16 Time:9 AM Trazodone HCl (Trazodone HCl) 50 MG TABLET 1 Tablet ORAL TWICE DAILY Comments: Last Taken:07/01/16 Time:9 AM Atorvastatin Calcium (Lipitor) 20 MG TABLET 1 Tablet ORAL DAILY Comments: Last Taken:07/10/16 Time:7 PM Clonidine HCl (Clonidine HCl) 0.1 MG TABLET 1 Tablet ORAL DAILY Comments: Last Taken:07/01/16 Time:9 AM Donepezil HCl (Aricept) 10 MG TABLET 1 Tablet ORAL Every night Comments: Last Taken:NOT GIVEN IN THE HOSPITAL Time: Finasteride (Finasteride) 5 MG TABLET 1 Tablet ORAL DAILY Comments: Last Taken:07/01/16 Time:9 AM Folic Acid (Folic Acid) 1 MG TABLET 1 Tablet ORAL DAILY Comments: Last Taken:07/01/16 Time:9 AM Acetaminophen (Pain Reliever) 500 MG CAPSULE 2 Tablet ORAL TWICE DAILY as needed for PAIN Comments: Last Taken:NOT GIVEN IN THE HOSPITAL Time: Aspirin (Ecotrin*) 81 MG TABLET.DR 1 Tablet ORAL DAILY Comments: Last Taken:07/01/16 Time:9 AM Tamsulosin HCl (Flomax) 0.4 MG CAP.ER.24H 1 Capsule ORAL DAILY Comments: Last Taken:06/30/16 Time:10 PM Triamcinolone Acetonide (Triamcinolone Acetonide) 0.1 % OINT...G. 1 Application On the skin TWICE DAILY as needed for ABD & LEGS Instructions: apply to affected area(s) Comments: AFTER WASHING WITH SELENIUM SULFENIDE- NOT GIVEN IN HOSPITAL Selenium Sulfide (Selenium Sulfide) 2.5 % SHAMPOO 1 Application On the skin TWICE DAILY Comments: Last Taken:NOT GIVEN IN THE HOSPITAL Time: Polyethylene Glycol 3350 (Miralax) 17 GRAM POWD.PACK 1 Packet ORAL DAILY as needed for GI Instructions: dissolve in water Comments: Last Taken:NOT GIVEN IN THE HOSPITAL Time: Sennosides (Senna) 8.6 MG TABLET 1 Tablet ORAL MONDAY, MONDAY AND MONDAY Comments: Last Taken:06/30/16 Time:10 PM Nystatin (Nyamyc) 100,000 UNIT/GRAM POWDER 1 Application On the skin As Directed as needed for UNKNOWN Comments: Last Taken:NOT GIVEN IN THE HOSPITAL Time: Start taking the following new medications: Furosemide (Lasix) 20 MG TABLET 1 Tablet ORAL See Instructions Qty = 60 No Refills Instructions: 40mg in morning and 20mg in afternoon Famotidine (Famotidine) 20 MG TABLET 1 Tablet ORAL DAILY Qty = 30 No Refills Copies To: BASILIO MCMILLAN,SUREKHA Tavarez; SALO MCMILLAN,HELIO Kennedy Attending MD Review Statement Documenting Attending: DAVID MCMILLAN,ROWAN Tavarez Other Findings: Please see my attending note for more details. Agree with the above discharge plan.
[2016-06-30 16:57] VITALS: BP 130/86
[2016-07-01 01:51] VITALS: BP 102/82
--- NOTE | 2016-07-01 07:53 | PN- Housestaff ---
Subjective Follow-up For: Leg edema, probably secondary to acute CHF Severe aortic stenosis Complaints: no complaints Tele-Events Since Last Visit: No any overnight events Subjective: Patient is seen and examined at the bedside. Denies any active complaints. Review of Systems Constitutional: Denies: no symptoms. Comments: Cannot comment because of patient's dementia and clinical condition Objective Last 24 Hrs of Vital Signs/I&O Vital Signs Date Time Temp Pulse Resp B/P Pulse O2 O2 Flow FiO2 Ox Delivery Rate 07/01 0815 62 106/72 07/01 0914 62 106/72 07/01 0829 97.3 62 18 106/72 93 Room Air 07/01 0151 97.9 70 16 102/82 95 Room Air 06/30 2244 72 112/62 06/30 2243 72 11206/30 1657 97.8 66 16 130/86 94 06/30 1600 94 Room Air Intake & Output 07/01 1600 07/01 0800 07/01 0000 Intake Total 120 640 Output Total 400 1350 Balance -280 -710 Intake, Oral 120 640 Number 0 0 Bowel Movements Output, Urine 400 1350 Physical Exam General Appearance: Alert, Cooperative, No Acute Distress Skin: Bilateral lower leg edema with redness and erythema on the skin Cardiovascular: Normal S1, Normal S2, murmur present Lungs: Clear to Auscultation, Normal Air Movement Abdomen: Soft, No Tenderness Neurological: Normal Speech, Dementia, forgetful Extremities: bilateral lower leg non pitting edema, redness and erythema on bilateral skin Vascular: Normal Pulses, Pulses Symmetrical Current Medications: Current Medications Sig/Supa Start time Last Medication Dose Route Stop Time Status Admin Aspirin Buffered 81 MG DAILY 06/28 1000 AC 07/01 PO 0914 Atorvastatin Calcium 20 MG 1700 06/28 1700 AC 06/30 PO 1855 Bisacodyl 10 MG ONCE ONE 07/01 0830 DC 07/01 LA 07/01 0831 0906 Bisacodyl 10 MG DAILY 06/30 1147 AC 07/01 PO 0914 Clonidine 0.1 MG DAILY 06/28 1000 AC 07/01 PO 0914 Famotidine 20 MG DAILY 07/01 1000 AC 07/01 PO 1432 Finasteride 5 MG DAILY 06/28 1000 AC 07/01 PO 0914 Folic Acid 1 MG DAILY 06/28 1000 AC 07/01 PO 0914 Furosemide 20 MG BID 06/28 1000 AC 07/01 IV 0914 Heparin Sodium 5,000 UNIT Q8 06/28 0200 AC 07/01 (Porcine) SC 1432 Memantine 10 MG BID 06/28 1000 AC 07/01 PO 0914 Metoprolol Tartrate 25 MG BID 06/28 1000 AC 07/01 PO 0915 Omeprazole 20 MG DAILY AC 07/01 0700 DC 07/01 PO 0609 Omeprazole 40 MG DAILY AC 06/28 0700 DC 06/30 PO 0522 Polyethylene Glycol 17 GM DAILY PRN 06/28 0600 AC 06/28 PO 1033 Senna 187 MG AT BEDTIME 06/28 2200 AC 06/30 PO 2244 Tamsulosin HCl 0.4 MG 2200 06/30 2200 AC 06/30 PO 2243 Trazodone HCl 50 MG BID 06/28 1000 AC 07/01 PO 0914 Last 24 Hrs of Lab/Mark Results Last 24 Hrs of Labs/Mics: Laboratory Tests 07/01/16 1106: Anion Gap 9, Estimated GFR 57 L, BUN/Creatinine Ratio 20.8 Assessment/Plan Assessment: This is a 86-year-old male with past medical history significant for alzeihmers dementia, coronary artery disease status post quadruple bypass, severe aortic stenosis, hypertension, hyperlipidemia, bilateral lower extremity leg swelling on Lasix 20 mg daily, insomnia, benign prostatitic hypertrophy, constipation, GERD, diverticulosis, CABG 10 years ago presented to emergency department with chief complaint of worsening bilateral lower extremity edema for a month. He was sent to the emergency department by the visiting nurse with chief complaint of worsening bilateral lower extremity edema and gait instability. Plan - Discharge today Dependent edema with skin changes ? Cellulitis, Severe Aortic stenosis leading to CHF * Bilateral lower leg erythema along with mild tenderness. Blood counts are normal without any evidence of bandemia or leukocytosis.Venouse doppler is negative for DVT. * Today fluid negative balance of 280, discussed with Dr smith and plan for discharge. * We will give tab Lasix 40 mg in morning and continue 20mg in evening. * Creatinine increased 0.9 to 1.2 * We will follow Dr. Smith recommendation * I talked to his daughter, Ms. Ojeda on 06/28/2016, she told that he was well evaluated for repair of severe aortic stenosis at [place] in 2016. It was told that there is more risk than benefit, after routine surgery as he is having dementia. * f/u echo showed - Small left ventricular cavity,Mild concentric LVH,LVEF60%. Severe aortic stenosis. * We'll continue all home medication as before Diet -heart healthy diet with fluid restriction DVT prophylaxis-anticoagulant aspirin/clopidogrel CODE STATUS-full code Problem List: 1. Severe aortic stenosis 2. Bilateral lower extremity edema Pain Ratin Pain Location: not applicable Pain Goal: Remain pain free Pain Plan: mild Tomorrow's Labs & Rationales: not required as patient is going DVT/Prophylaxis: mechanical, pharmacological
[2016-07-01 08:29] VITALS: BP 106/72
[2016-07-01] MEDS ORDERED: FAMOTIDINE20 M1 PO (09:16)
[2016-07-01] MEDS ORDERED: FUROSEMIDE20 M1 PO (11:00)
--- NOTE | 2016-07-01 15:21 | PN- Att Addend ---
Attending MD Review Statement Attending Statement Attending MD Statement: examined this patient, discuss w/resident/PA/FURNACE BRAZER, agreed w/resident/PA/FURNACE BRAZER, reviewed EMR data (avail), discussed w/nursing Attending Assessment/Plan: Laboratory Tests 07/01/16 1106: Anion Gap 9, Estimated GFR 57 L, BUN/Creatinine Ratio 20.8 Vital Signs Date Time Temp Pulse Resp B/P Pulse O2 O2 Flow FiO2 Ox Delivery Rate 07/01 914 62 106/72 07/01 0914 62 106/72 07/01 0829 97.3 62 18 106/72 93 Room Air 07/01 0151 97.9 70 16 102/82 95 Room Air 06/30 2244 72 112/62 06/30 2243 72 112/62 06/30 1657 97.8 66 16 130/86 94 06/30 1600 94 Room Air Patient seen and examined at bedside. Discussed with the the team the care plan. Awaiting cardiology's final recommendations pending which the plan is to discharge the patient on oral Lasix on 40 mg in a.m. and 20 mg in p.m.
[2016-07-01] MEDS ORDERED: LASIX20 M1 PO ×2 (15:59→16:00)
[2016-07-01 16:51] VITALS: BP 106/72
== END 2016-07-01 17:30 | DRG 293 ==
LOC: ENRESERVDT → ENRESERVTM → CANRESERV → ERH 18:23 → ENPENDDIS 21:35 → ERHI 21:35 → 1NO 21:35 → EDBEDREQ 22:49 → 1NO 23:53
PROVIDERS: Emergency Medicine; ADMIT Student in an Organized Health Care Education/Training Program
DX: I11.0 Hypertensive heart disease with heart failure (principal); R00.1 Bradycardia, unspecified; G30.9 Alzheimer's disease, unspecified; F02.80 Dementia in other diseases classified elsewhere, unspecified severity, without behavioral disturbance, psychotic disturbance, mood disturbance, and anxiety; I50.33 Acute on chronic diastolic (congestive) heart failure; I35.0 Nonrheumatic aortic (valve) stenosis; I45.10 Unspecified right bundle-branch block; Z95.1 Presence of aortocoronary bypass graft; I25.10 Atherosclerotic heart disease of native coronary artery without angina pectoris; E78.5 Hyperlipidemia, unspecified; N40.0 Benign prostatic hyperplasia without lower urinary tract symptoms; K21.9 Gastro-esophageal reflux disease without esophagitis; K59.00 Constipation, unspecified; G47.00 Insomnia, unspecified; R26.89 Other abnormalities of gait and mobility; R21 Rash and other nonspecific skin eruption
CPT/HCPCS: 1NP; 36415; 74000; 82436; 93005; 93010; 93970; 96374; 97110-GO; 97116-GO; 97161-GP; 97530-GO; C8929; J1644; J1940; J3490; Q9957

== ENCOUNTER 2016-08-04 12:55 | Emergency (ER) | payer OTHER, MEDICARE ==
[~2016-08-04] VITALS: Ht 167.6 cm; Wt 81.6 kg
[~2016-08-04 12:55] MED LIST changes: +FAMOTIDINE20 M1 PO; +LASIX20 M1 PO
--- NOTE | 2016-08-04 13:24 | ED CARDIAC/CP/PALPITATIONS ---
History of Present Illness General Chief Complaint: General Adult Stated Complaint: BIBA BRADYCARDIA Source: patient, old records, EMS Exam Limitations: dementia, poor historian Vital Signs & Intake/Output Vital Signs & Intake/Output Vital Signs Date Time Temp Pulse Resp B/P B/P Pulse O2 O2 Flow FiO2 Mean Ox Delivery Rate 08/058 96.2 54 18 136/68 96 Room Air 08/04 2239 95.8 51 18 146/65 94 08/04 1908 95.5 50 20 115/92 95 Room Air 08/04 1658 50 18 117/58 97 Room Air 08/04 1406 97.9 49 18 124/58 96 Room Air 08/04 1313 97 Room Air 08/04 1310 97.0 47 20 122/65 97 Room Air ED Intake and Output 08/05 0000 08/04 1200 Intake Total Output Total Balance Patient 180 lb Weight Weight Reported by Patient Measurement Method Allergies Coded Allergies: Antihistamines - Alkylamine (UNKNOWN 06/25/15) Reconcile Medications Acetaminophen (Pain Reliever) 500 MG CAPSULE 2 TAB PO BID PRN PAIN (Reported) Aspirin (Ecotrin*) 81 MG TABLET.DR 1 TAB PO DAILY HEART/BLOOD (Reported) Atorvastatin Calcium (Lipitor) 20 MG TABLET 1 TAB PO DAILY CHOLESTEROL ( Reported) Clonidine HCl 0.1 MG TABLET 1 TAB PO DAILY HTN (Reported) Cyanocobalamin (Vitamin B-12) 1,000 MCG TABLET 1 TAB PO DAILY SUPPLEMENT ( Reported) Donepezil HCl (Aricept) 10 MG TABLET 1 TAB PO QPM MEMORY (Reported) Famotidine 20 MG TABLET 1 TAB PO DAILY GERD Finasteride 5 MG TABLET 1 TAB PO DAILY PROSTATE (Reported) Folic Acid 1 MG TABLET 1 TAB PO DAILY SUPPLEMENT (Reported) Furosemide (Lasix) 20 MG TABLET 1 TAB PO SI heart failure 40mg in morning and 20mg in afternoon Memantine HCl (Namenda) 10 MG TABLET 1 TAB PO BID MEMORY (Reported) Metoprolol Tartrate 25 MG TABLET 1 TAB PO BID HTN (Reported) Nystatin (Nyamyc) 100,000 UNIT/GRAM POWDER 1 FALLON TOP AD PRN UNKNOWN (Reported ) Polyethylene Glycol 3350 (Miralax) 17 GRAM POWD.PACK 1 PAC PO DAILY PRN GI ( Reported) dissolve in water Selenium Sulfide 2.5 % SHAMPOO 1 FALLON TOP BID ABD & LEGS (Reported) Sennosides (Senna) 8.6 MG TABLET 1 TAB PO Monday GI (Reported) Tamsulosin HCl (Flomax) 0.4 MG CAP.ER.24H 1 CAP PO DAILY BPH (Reported) Trazodone HCl 50 MG TABLET 1 TAB PO BID UNKNOWN (Reported) Triamcinolone Acetonide 0.1 % OINT...G. 1 FALLON TOP BID PRN ABD & LEGS ( Reported) apply to affected area(s) Triage Note: BIBA FROM HOME. VISITING NURSE NOTED PT TO BE BRADYCARDIC WITHOUT SYMPTOMS. PT COLOR IS NORMAL, NO COMPLAINTS. PT ALERT. EKG DONE ON ARRIVAL,PLACED ON MONITOR. [facility]. Triage Nurses Notes Reviewed? yes HPI: Patient presents for evaluation of bradycardia. Patient himself is without complaint and wasn't even aware why he was being sent to the emergency department. (TOMAS MCMILLAN,LEANDRA Hood) Past History Travel History Traveled to [place] past 21 day No Medical History Any Pertinent Medical History? 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 CHRONIC EDEMA Respiratory: NONE Gastrointestinal: diverticulosis Hepatic: NONE Renal: benign prost hyperplasia Musculoskeletal: NONE Psychiatric: NONE Endocrine: obesity, pre-DM Blood Disorders: vasculitis BACTEREMIA Cancer(s): NONE History of MRSA: Yes History of VRE: No History of CDIFF: No Surgical History Surgical History: CABG ( 10 YRS AGO), QUAD BYPASS Psychosocial History Who do you live with Daughter Services at Home Home Health Aide What is your primary language Welsh Tobacco Use: Never used Family History Family History, If Any: SON, , Age 30-40. Relation not specified for: FH: leukemia Hx Contributory? No (LEANDRA MARIN MD) Review of Systems Review of Systems Constitutional: Reports: no symptoms. EENTM: Reports: no symptoms. Respiratory: Reports: no symptoms. Cardiovascular: Reports: no symptoms. GI: Reports: no symptoms. Genitourinary: Reports: no symptoms. Musculoskeletal: Reports: no symptoms. Skin: Reports: no symptoms. Neurological/Psychological: Reports: no symptoms. Hematologic/Endocrine: Reports: no symptoms. Immunologic/Allergic: Reports: no symptoms. All Other Systems: Reviewed and Negative (LEANDRA MARIN MD) Physical Exam Physical Exam Cardiovascular: regular rate/rhythm (see below) Comments: Gen.: Well-nourished, well-developed, no acute respiratory distress. Head: Normocephalic, atraumatic. Eyes: Normal inspection bilaterally Ears: Normal inspection bilaterally Nose: Normal inspection Throat/mouth : Moist mucosa Neck: Supple, full range of motion, no goiter Heart: Slow but otherwise Regular rate and rhythm, systolic murmur Lungs: Clear to auscultation bilaterally with normal air entry Chest: Nontender Back: Normal range of motion Abdomen: Soft, nontender, nondistended, normal bowel sounds Extremities: Normal range of motion grossly, equal radial pulses, no cyanosis clubbing or edema Neurologic: Cranial nerves grossly intact, speech is clear Skin: warm and dry Psychiatric: Calm, cooperative, no apparent delusions or hallucinations (TOMAS MCMILLAN,LEANDRA Hood) Core Measures ACS in differential dx? Yes ASA ordered for poss ACS? No-ACS ruled out Severe Sepsis Present: No Septic Shock Present: No (ANA MCMILLAN,BANDAR) Progress Differential Diagnosis: cardiac conduction disturbance, medication side effect Plan of Care: Orders Procedure Date/time Status Telemetry/Warp Knitter 08/04 1421 Active THYROID STIMULATING HORMONE 08/04 1420 Complete TROPONIN LEVEL 08/04 1420 Complete MAGNESIUM 08/04 1420 Complete COMPREHENSIVE METABOLIC PANEL 08/04 1420 Complete CBC WITHOUT DIFFERENTIAL 08/04 1420 Complete EKG 08/04 1258 Active Laboratory Tests 08/04/16 1459: Anion Gap 10, Estimated GFR > 60, BUN/Creatinine Ratio 17.8, Glucose 98, Calcium 8.2 L, Magnesium 2.1, Total Bilirubin 1.6 H, AST 18, ALT 41, Alkaline Phosphatase 131 H, Troponin I < 0.01, Total Protein 6.7, Albumin 3.7, Globulin 3.0, Albumin/Globulin Ratio 1.2, TSH 5.160 H, CBC w Diff NO MAN DIFF REQ, RBC 4.60 L, MCV 86.1, MCH 30.3, RDW 13.9, MPV 8.3, Gran % 58.2, Lymphocytes % 29.3, Monocytes % 8.4, Eosinophils % 3.8, Basophils % 0.3, Absolute Granulocytes 4.5, Absolute Lymphocytes 2.3, Absolute Monocytes 0.6, Absolute Eosinophils 0.3, Absolute Basophils 0, PUBS MCHC 35.2 Initial ED EKG: sinus bradycardia with a ventricular rate in the 40s Comments: 08/04/2016 7:30:07 PM patient's emergency department stay has been uneventful. Patient signed out to Dr. Perez at shift change control coordinator pending call back from blacktop paver operator. (TOMAS MCMILLAN,LEANDRA Hood) Comments: Discussed with Dr. Smith, july D/C metoprolol and follow up in office. Daughter not comfortable with patient returning to assisted care at night due to staffing. Ambulates with walker without difficulty. Will observe and monitor patient overnight, W-10 completed. (ANA MCMILLAN,BANDAR) Departure Departure Condition: Stable Referrals: HELIO LEONG MD (PCP/Family) Departure Forms: Customer Survey General Discharge Information (TOMAS MCMILLAN,LEANDRA Hood) Departure Disposition: HOME OR SELF CARE Clinical Impression Primary Impression: Bradycardia, drug induced Additional Instructions: Stop metoprolol. (BANDAR PEREZ MD) Critical Care Note Critical Care Note Critical Care Time: non-applicable (BANDAR PEREZ MD)
[2016-08-04 15:11] LABS: ABSOLUTE BASOPHIL COUNT 0 /CUMM (0.0-0.2); ABSOLUTE EOSINOPHIL COUNT 0.3 /CUMM (0.0-0.7); ABSOLUTE GRANULOCYTE CT 4.5 /CUMM (1.4-6.5); ABSOLUTE LYMPH COUNT 2.3 /CUMM (1.2-3.4); ABSOLUTE MONOCYTE COUNT 0.6 /CUMM (0.10-0.60); BASOPHIL % 0.3 % (0.0-2.0); EOSINOPHIL % 3.8 % (0-5); GRANULOCYTE % 58.2 % (42.2-75.2); HEMATOCRIT 39.6 % (42-52); MEAN CORPUSCULAR HGB 30.3 PG (27.0-31.0); MEAN CORPUSCULAR HGB CONC 35.2 G/DL (33.0-37.0); MEAN CORPUSCULAR VOLUME 86.1 FL (80.0-94.0); MEAN PLATELET VOLUME 8.3 FL (7.4-10.4); PLATELET COUNT 151 /CUMM (130-400); RBC DISTRIBUTION WIDTH 13.9 % (11.5-14.5); WHITE BLOOD CELL COUNT 7.7 /CUMM (4.8-10.8)
[2016-08-05 09:15] VITALS: BP 130/62
== END 2016-08-05 09:09 ==
LOC: ERH 12:55
PROVIDERS: Emergency Medicine
DX: R00.1 Bradycardia, unspecified (principal); T44.7X5A Adverse effect of beta-adrenoreceptor antagonists, initial encounter
CPT/HCPCS: 93005; 93010

== ENCOUNTER 2016-08-13 19:12 | Emergency (ER) | payer OTHER, MEDICARE ==
[~2016-08-13] VITALS: Ht 167.6 cm; Wt 81.6 kg
--- NOTE | 2016-08-13 19:35 | ED AMS/SEIZURE/WEAK/DIZZY ---
See Addendum History of Present Illness General Chief Complaint: General Adult Stated Complaint: BIBA WEAKNESS Source: patient, family, old records, EMS Exam Limitations: dementia Vital Signs & Intake/Output Vital Signs & Intake/Output Vital Signs Date Time Temp Pulse Resp B/P B/P Pulse O2 O2 Flow FiO2 Mean Ox Delivery Rate 08/14 1031 97.5 82 20 130/74 08/14 1031 97.5 82 20 130/74 08/14 1014 97.5 82 20 130/74 95 Room Air 08/14 1012 97.5 822 20 130/74 08/14 0657 78 16 132/70 95 08/14 0232 84 20 122/71 96 Room Air 08/13 2221 98.2 89 20 140/82 98 08/13 1928 99.3 103 20 136/68 95 Room Air ED Intake and Output 08/14 0000 08/13 1200 Intake Total Output Total 100 Balance -100 Output, Urine 100 Patient 180 lb Weight Weight Reported by Patient Measurement Method Allergies Coded Allergies: Antihistamines - Alkylamine (UNKNOWN 06/25/15) Reconcile Medications Acetaminophen (Pain Reliever) 500 MG CAPSULE 2 TAB PO BID PRN PAIN (Reported) Aspirin (Ecotrin*) 81 MG TABLET.DR 1 TAB PO DAILY HEART/BLOOD (Reported) Atorvastatin Calcium (Lipitor) 20 MG TABLET 1 TAB PO DAILY CHOLESTEROL ( Reported) Clonidine HCl 0.1 MG TABLET 1 TAB PO DAILY HTN (Reported) Cyanocobalamin (Vitamin B-12) 1,000 MCG TABLET 1 TAB PO DAILY SUPPLEMENT ( Reported) Donepezil HCl (Aricept) 10 MG TABLET 1 TAB PO QPM MEMORY (Reported) Finasteride 5 MG TABLET 1 TAB PO DAILY PROSTATE (Reported) Folic Acid 1 MG TABLET 1 TAB PO DAILY SUPPLEMENT (Reported) Furosemide (Lasix) 20 MG TABLET 1 TAB PO DAILY DIURETIC (Reported) Memantine HCl (Namenda) 10 MG TABLET 1 TAB PO BID MEMORY (Reported) Metoprolol Tartrate 25 MG TABLET 1 TAB PO BID HTN (Reported) Nystatin (Nyamyc) 100,000 UNIT/GRAM POWDER 1 FALLON TOP AD PRN UNKNOWN (Reported ) Omeprazole 40 MG CAPSULE.DR 1 CAP PO DAILY GI (Reported) Polyethylene Glycol 3350 (Miralax) 17 GRAM POWD.PACK 1 PAC PO DAILY PRN GI ( Reported) dissolve in water Selenium Sulfide 2.5 % SHAMPOO 1 [place] TOP BID ABD & LEGS (Reported) Sennosides (Senna) 8.6 MG TABLET 1 TAB PO Monday GI (Reported) Tamsulosin HCl (Flomax) 0.4 MG CAP.ER.24H 1 CAP PO DAILY BPH (Reported) Trazodone HCl 50 MG TABLET 1 TAB PO BID UNKNOWN (Reported) Triamcinolone Acetonide 0.1 % OINT...G. 1 FALLON TOP AD PRN ABD & LEGS (Reported ) apply to affected area(s) Triage Note: PT BIBA FROM ASSISTING LIVING. PT'S REPORTED TO EMS PT WAS "NOT HIMSELF". PT COMPLAINING OF WEAKNESS AND NONPRODUCTIVE COUGH SINCE LAST NIGHT. LS DMINISHED IN BILAT BASES. NSR WITH OLD RBB. PT A&O BUT AT TIMES TAKES MULTIPLE ATTEMPTS TO PROVIDE CORRECT RESPONSES. Triage Nurses Notes Reviewed? yes Onset: Abrupt Duration: day(s): (1), constant Timing: recent history Injury Environment: home Severity: moderate Severity Numbers: 5 No Modifying Factors: none Associated Symptoms: DENIES HPI: 86 YEAR OLD MALE past medical history significant for alzeihmers dementia, CAD s /p 4 vessel CABG 10 years ago, severe aortic stenosis, HTN, HLD, BPH, GERD, diverticulosis presents with his daughter. According to the patient's the patient has been more weak than normal. He was unable to ambulate today secondary to the weakness. On arrival patient has a history of dementia offers no complaints. He was recently admitted for CHF leg edema. He's recently stopped on his Lopressor. No fever no chills (ANA UNDERWOOD,MAXIMINO) Past History Travel History Traveled to [place] past 21 day No Medical History Any Pertinent Medical History? 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 CHRONIC EDEMA Respiratory: NONE Gastrointestinal: diverticulosis Hepatic: NONE Renal: benign prost hyperplasia Musculoskeletal: NONE Psychiatric: NONE Endocrine: obesity, pre-DM Blood Disorders: vasculitis BACTEREMIA Cancer(s): NONE History of MRSA: Yes History of VRE: No History of CDIFF: No Surgical History Surgical History: CABG ( 10 YRS AGO), QUAD BYPASS Psychosocial History Who do you live with Daughter Services at Home Home Health Aide What is your primary language Burundian Tobacco Use: Cognitive Impairment Family History Family History, If Any: SON, , Age 30-40. Relation not specified for: FH: leukemia Hx Contributory? No (MAXIMINO RIVERA) Review of Systems Review of Systems Constitutional: Reports: see HPI. All Other Systems: Reviewed and Negative Comments Review of systems: See HPI, All other systems negative. Constitutional, no chills no fever, no malaise HEENT: No visual changes no sore throat no congestion, no ear pain Cardiovascular: No chest pain , no palpitation Skin: no rashes, no change in skin Respiratory: No dyspnea no cough no sputum GI: No nausea no vomiting, no diarrhea, : No dysuria Muscle skeletal: No joint pain, no joint swelling, no back pain, no neck pain, Neurologic: No numbness confusion, no headache Psych: No stress Heme/endocrine: No bruising no bleeding Immunology: No lymphadenopathy (MAXIMINO RIVERA) Physical Exam Physical Exam General Appearance: well developed/nourished, no apparent distress, awake Comments: Elderly male in no apparent distress HEENT: Normal EENT exam; PERRL, EOMI, no nystagmus. HEAD is atraumatic. moist mucous membranes. Neck: Supple, no lymphadenopathy, normal range of motion Back: Nontender, no CVA tenderness. Full range of motion Cardiovascular: Regular rate and rhythms no murmurs rubs or gallops, normal JVP Respiratory: Chest nontender.There were no bony deformities, no asymmetry. No respiratory distress. Patient speaking in full complete sentences. Breath sounds clear to auscultation bilaterally: NO W/R/R Abdomen: Soft, nontender nondistended, no appreciable organomegaly. Normal bowel sounds. No rebound/guarding,. Extremity: Trace pedal edema, full range of motion of extremities, Neuro: Alert oriented X0 baseline, motor sensory normal, cranial nerves II through XII grossly intact. There were no obvious focal neurologic abnormalities. Skin: No appreciable rash on exposed skin, skin is warm and dry. Psych: Mood and affect is normal, memory and judgment is normal. Core Measures ACS in differential dx? Yes CVA/TIA Diagnosis: No Severe Sepsis Present: No Septic Shock Present: No (MAXIMINO RIVERA) Progress Differential Diagnosis: arrythmia, CVA/stroke, dehydration, electrolyte imbalance, GI bleed, postural hypotension, UTI/pyelo, vertebrobasilar insuff, chf. radha, gaitinstability Plan of Care: Orders Procedure Date/time Status Regular Diet 08/14 L Active PT Evaluate & Treat 08/14 0741 Active PT EVAL LOW COMPLEX 20 MIN 08/14 UNK Complete CASE MANAGEMENT CONSULT 08/13 2316 Active CULTURE,URINE 08/14 1947 Active BLOOD CULTURE 08/14 1947 Active URINALYSIS 08/14 1947 Complete TROPONIN LEVEL 08/14 1947 Complete PROTHROMBIN TIME 08/14 1947 Complete LACTIC ACID 08/14 1947 Complete COMPREHENSIVE METABOLIC PANEL 08/14 1947 Complete CBC WITHOUT DIFFERENTIAL 08/14 1947 Complete B-TYPE NATRIURETIC PEP (BNP) 08/14 1947 Complete EKG 08/14 1911 Active Current Medications Sig/Supa Start time Last Medication Dose Stop Time Status Admin Aspirin Buffered 81 MG DAILY 08/14 1000 UNVr 08/14 (Ecotrin) 1031 Atorvastatin Calcium 20 MG DAILY 08/14 1000 UNVr 08/14 (Lipitor) 1031 Clonidine 0.1 MG DAILY 08/14 1000 UNVr 08/14 (Catapres) 1012 Donepezil HCl 10 MG DAILY 08/14 1000 UNVr 08/14 (Aricept) 1031 Finasteride 5 MG DAILY 08/14 1000 UNVr 08/14 (Proscar) 1031 Furosemide 20 MG DAILY 08/14 1000 UNVr 08/14 (Lasix) 1031 Memantine 10 MG BID 08/14 1000 UNVr 08/14 (Namenda) 1031 Metoprolol Tartrate 25 MG BID 08/14 1000 UNVr 08/14 (Lopressor) 1031 Tamsulosin HCl 0.4 MG DAILY 08/14 1000 UNVr 08/14 (Flomax) 1031 Trazodone HCl 50 MG BID 08/14 1000 UNVr 08/14 (Desyrel) 1031 Omeprazole 40 MG DAILY AC 08/14 0743 UNVr 08/14 (Prilosec) 1012 Laboratory Tests 08/13/162247: Lactic Acid Cancelled 08/13/161945: Anion Gap 12, Estimated GFR > 60, BUN/Creatinine Ratio 13.0, Glucose 134 H, Lactic Acid 2.0, Calcium 8.7, Total Bilirubin 1.7 H, AST 20, ALT 40, Alkaline Phosphatase 151 H, Troponin I 0.02, Fvy-[id number] Pept 335 H, Total Protein 7.7, Albumin 4.3, Globulin 3.4, Albumin/Globulin Ratio 1.3, PT 13.0 H, INR 1.24 H, CBC w Diff NO MAN DIFF REQ, RBC 5.07, MCV 87.7, MCH 30.1, RDW 14.1, MPV 8.1, Gran % 75.6 H, Lymphocytes % 11.5 L, Monocytes % 9.1, Eosinophils % 3.4, Basophils % 0.4, Absolute Granulocytes 6.3, Absolute Lymphocytes 1.0 L, Absolute Monocytes 0.8 H, Absolute Eosinophils 0.3, Absolute Basophils 0, PUBS MCHC 34.3, Urine Color YEL, Urine Clarity CLEAR, Urine pH 6.0, Ur Specific [place] 1.015, Urine Protein NEG, Urine Ketones NEG, Urine Nitrite NEG, Urine Bilirubin NEG, Urine Urobilinogen 0.2, Ur Leukocyte Esterase NEG, Ur Microscopic EXAM NOT REQUIRED, Urine Hemoglobin NEG, Urine Glucose NEG Microbiology 08/13 2002 BLOOD: Blood Culture - RECD 08/13 1945 URINE ROUT: Urine Culture - RES 08/13 1945 BLOOD: Blood Culture - RECD Labs ordered old records reviewed patient appears in no apparent distress Patient attempted ambulation with nursing with Walker unsteady gait unable to ambulate secondary to weakness. Patient was seen and evaluated by Dr. Bob who agrees with plan 08/13/2016 10:22:14 PM pending callback from case management on disposition status Case discussed with Prema Merino management patient will be in ER hold the evening for case management consult in the morning. (ANA UNDERWOOD,MAXIMINO) Diagnostic Imaging: Viewed by Me: Radiology Read. Discussed w/RAD: Radiology Read. Radiology Impression: PATIENT: HELENA MCFARLANE PRESENT AGE: 86 PATIENT ACCOUNT NO: [id number] : 29 LOCATION: [facility] ORDERING PHYSICIAN: MAXIMINO UNDERWOOD SERVICE DATE: 08/13/16 EXAM TYPE: RAD - XRY- PORTABLE CHEST XRAY EXAMINATION: XR PORTABLE CHEST CLINICAL INFORMATION: Weakness COMPARISON: 06/29/2016 TECHNIQUE: Portable portable AP view of the chest was obtained. FINDINGS: The cardiac silhouette is stable in size compared to previous examination. The patient is status post median sternotomy. Wires appear intact. The lungs appear grossly clear. Mild prominence of the interstitium is redemonstrated. There is mild obscuration of the left costophrenic angle from a prominent epicardial fat pad. A small left pleural effusion is difficult to completely exclude. No right pleural effusion. IMPRESSION: Essentially stable examination compared to prior. No pneumonia. Possible small left pleural effusion. DICTATED BY: SAM STANTON MD DATE/TIME DICTATED:08/13/162008 SUPERVISOR COAL HANDLING:NATA DATE/TIME TRANSCRIBED:2008 CONFIDENTIAL, DO NOT COPY WITHOUT APPROPRIATE AUTHORIZATION. < Electronically signed in Other Vendor System> SIGNED BY: SAM STANTON MD 2018 Initial ED EKG: stach at 100, rbbb,no acute st seg changes Prior EKG: unchanged (07/2016) Rhythm Strip: normal sinus rhythm (MAXIMINO RIVERA) Comments: 08/14/2016 6:55:54 AM patient signed out to Dr. Mace at shift debt recovery officer. (TOMAS MCMILLAN,LEANDRA Hood) Comments: Patient to be transferred to [facility] (MARINA MCMILLAN,CHRISTAL Estrella) Departure Departure Condition: Stable Clinical Impression Primary Impression: Gait instability Secondary Impressions: Weakness Referrals: HELIO LEONG MD (PCP/Family) Departure Forms: Customer Survey General Discharge Information (MAXIMINO RIVERA) PA/OFFSET PRESS OPERATOR Co-Sign Statement Statement: ED Attending supervision documentation- [X] I saw and evaluated the patient. I have also reviewed all the pertinent lab results and diagnostic results. I agree with the findings and the plan of care as documented in the PA's/OFFSET PRESS OPERATOR's documentation. [] I have reviewed the ED Record and agree with the PA's/OFFSET PRESS OPERATOR's documentation. [] Additions or exceptions (if any) to the PAs/OFFSET PRESS OPERATOR's note and plan are summarized below: [] (TOMAS MCMILLAN,LEANDRA Hood) Departure Disposition: ACUTE REHAB FACILITY (MARINA MCMILLAN,CHRISTAL Estrella)
[2016-08-13] MEDS ORDERED: LASIX20 M1 PO (19:36)
[2016-08-13] MEDS ORDERED: OMEPRAZOLE40 M1 PO (19:38)
[2016-08-13 20:08] LABS: ABSOLUTE BASOPHIL COUNT 0 /CUMM (0.0-0.2); ABSOLUTE EOSINOPHIL COUNT 0.3 /CUMM (0.0-0.7); ABSOLUTE GRANULOCYTE CT 6.3 /CUMM (1.4-6.5); ABSOLUTE MONOCYTE COUNT 0.8 /CUMM (0.10-0.60); BASOPHIL % 0.4 % (0.0-2.0); EOSINOPHIL % 3.4 % (0-5); GRANULOCYTE % 75.6 % (42.2-75.2); HEMATOCRIT 44.4 % (42-52); MEAN CORPUSCULAR HGB 30.1 PG (27.0-31.0); MEAN CORPUSCULAR HGB CONC 34.3 G/DL (33.0-37.0); MEAN CORPUSCULAR VOLUME 87.7 FL (80.0-94.0); MEAN PLATELET VOLUME 8.1 FL (7.4-10.4); PLATELET COUNT 175 /CUMM (130-400); RBC DISTRIBUTION WIDTH 14.1 % (11.5-14.5); RED BLOOD CELL CT 5.07 /CUMM (4.70-6.10); WHITE BLOOD CELL COUNT 8.3 /CUMM (4.8-10.8)
--- NOTE | 2016-08-13 20:19 | RADIOLOGY REPORT ---
EXAMINATION: XR PORTABLE CHEST CLINICAL INFORMATION: Weakness COMPARISON: 06/29/2016 TECHNIQUE: Portable portable AP view of the chest was obtained. FINDINGS: The cardiac silhouette is stable in size compared to previous examination. The patient is status post median sternotomy. Wires appear intact. The lungs appear grossly clear. Mild prominence of the interstitium is redemonstrated. There is mild obscuration of the left costophrenic angle from a prominent epicardial fat pad. A small left pleural effusion is difficult to completely exclude. No right pleural effusion. IMPRESSION: Essentially stable examination compared to prior. No pneumonia. Possible small left pleural effusion.
[2016-08-14 14:09] VITALS: BP 134/65
== END 2016-08-14 14:15 ==
LOC: ERH 19:12
PROVIDERS: Physician Assistant Medical
DX: R26.9 Unspecified abnormalities of gait and mobility (principal); R53.1 Weakness; I10 Essential (primary) hypertension; R73.03 Prediabetes
CPT/HCPCS: 81003; 87040; 87086; 93005; 93010; 97161-GP; G8978-GP; G8979-GP; G8980-GP; J3490

== ENCOUNTER 2016-09-05 14:49 | Emergency (ER) | payer OTHER, MEDICARE ==
[2016-09-05 15:25] LABS: ABSOLUTE BASOPHIL COUNT 0 /CUMM (0.0-0.2); ABSOLUTE EOSINOPHIL COUNT 0.3 /CUMM (0.0-0.7); ABSOLUTE GRANULOCYTE CT 5.1 /CUMM (1.4-6.5); ABSOLUTE LYMPH COUNT 2.2 /CUMM (1.2-3.4); ABSOLUTE MONOCYTE COUNT 0.7 /CUMM (0.10-0.60); BASOPHIL % 0.4 % (0.0-2.0); EOSINOPHIL % 3.6 % (0-5); GRANULOCYTE % 61.3 % (42.2-75.2); HEMATOCRIT 38.5 % (42-52); MEAN CORPUSCULAR HGB 30.2 PG (27.0-31.0); MEAN CORPUSCULAR HGB CONC 34.7 G/DL (33.0-37.0); MEAN CORPUSCULAR VOLUME 87.1 FL (80.0-94.0); MEAN PLATELET VOLUME 7.9 FL (7.4-10.4); PLATELET COUNT 196 /CUMM (130-400); RBC DISTRIBUTION WIDTH 13.8 % (11.5-14.5); RED BLOOD CELL CT 4.42 /CUMM (4.70-6.10); WHITE BLOOD CELL COUNT 8.3 /CUMM (4.8-10.8)
[2016-09-05] MEDS ORDERED: LASIX40 M1 PO (15:35)
[2016-09-05] MEDS ORDERED: LASIX80 M1 PO (15:36)
[2016-09-05] MEDS ORDERED: K-TAB ER10 MEQ PO (15:38)
--- NOTE | 2016-09-05 15:58 | ED GENERAL ADULT ---
History of Present Illness General Chief Complaint: Dizziness Stated Complaint: LOW BLOOD PRESSURE; DIZZY Source: patient, family Exam Limitations: dementia Vital Signs & Intake/Output Vital Signs & Intake/Output Vital Signs Date Time Temp Pulse Resp B/P B/P Pulse O2 O2 Flow FiO2 Mean Ox Delivery Rate 09/05 1729 67 18 128/59 94 Room Air 09/05 1536 95 09/05 1501 99.1 58 15 118/63 95 Room Air Room Air Allergies Coded Allergies: Antihistamines - Alkylamine (UNKNOWN 09/05/16) Reconcile Medications Acetaminophen (Pain Reliever) 500 MG CAPSULE 2 TAB PO BID PRN PAIN (Reported) Aspirin (Ecotrin*) 81 MG TABLET.DR 1 TAB PO DAILY HEART/BLOOD (Reported) Atorvastatin Calcium (Lipitor) 20 MG TABLET 1 TAB PO DAILY CHOLESTEROL ( Reported) Clonidine HCl 0.1 MG TABLET 1 TAB PO DAILY HTN (Reported) Cyanocobalamin (Vitamin B-12) 1,000 MCG TABLET 1 TAB PO DAILY SUPPLEMENT ( Reported) Donepezil HCl (Aricept) 10 MG TABLET 1 TAB PO QPM MEMORY (Reported) Finasteride 5 MG TABLET 1 TAB PO DAILY PROSTATE (Reported) Folic Acid 1 MG TABLET 1 TAB PO DAILY SUPPLEMENT (Reported) Furosemide (Lasix) 40 MG TABLET 1 TAB PO EOD DIURETIC (Reported) Furosemide (Lasix) 80 MG TABLET 1 TAB PO EOD DIURETIC (Reported) Memantine HCl (Namenda) 10 MG TABLET 1 TAB PO BID MEMORY (Reported) Metoprolol Tartrate 25 MG TABLET 1 TAB PO BID HTN (Reported) Nystatin (Nyamyc) 100,000 UNIT/GRAM POWDER 1 FALLON TOP AD PRN UNKNOWN (Reported ) Omeprazole 40 MG CAPSULE.DR 1 CAP PO DAILY GI (Reported) Polyethylene Glycol 3350 (Miralax) 17 GRAM POWD.PACK 1 PAC PO DAILY PRN GI ( Reported) dissolve in water Potassium Chloride (K-Tab ER) 10 MEQ TABLET.ER 1 TAB PO DAILY SUPPLEMENT ( Reported) Selenium Sulfide 2.5 % SHAMPOO 1 FALLON TOP BID ABD & LEGS (Reported) Sennosides (Senna) 8.6 MG TABLET 1 TAB PO Monday GI (Reported) Tamsulosin HCl (Flomax) 0.4 MG CAP.ER.24H 1 CAP PO DAILY BPH (Reported) Trazodone HCl 50 MG TABLET 1 TAB PO BID UNKNOWN (Reported) Triamcinolone Acetonide 0.1 % OINT...G. 1 FALLON TOP AD PRN ABD & LEGS (Reported ) apply to affected area(s) Triamcinolone Acetonide 0.1 % OINT...G. 1 FALLON TOP BID dermatis apply to affected area(s) Triage Note: PT TO ED FOR C/C OF BILAT LOWER EXT EDEMA FOR THE LAST TWO DAYS. HX OF CHF. DENIES SOB. NO ACUTE DISTRESS NOTED. PT ARRIVES WITH DAUGHTER WHO REPORTS LEGS ARE MOVE SWOLLEN THAN USUAL AND WERE "LEAKING FLUID LAST NIGHT" Triage Nurses Notes Reviewed? yes Onset: Gradual Duration: week(s): Timing: remote history Injury Environment: home Severity: moderate Modifying Factors: Improves With: other (ELEVATION). Worsens With: movement. HPI: 86-year-old male presents to emergency department complaining of swelling and pain in both lower extremities with dizziness and weakness. HPI obtained from patient's daughter due to patient's dementia. Daughter states that leg swelling has been going on for many years, has been worse over recent months. Swelling causes patient to be unsteady while walking, patient uses a walker, patient has not fallen. Patient frequently scratches his lower legs as they are itchy which causes chronic sores. Daughter states sores on bilateral lower extremities are weeping with clear drainage and sometimes bleeding. Triamcinolone cream is used topically which alleviates patient's itching. Patient has intermittent dyspnea however currently does not complain of dyspnea. Patient denies chest pain, cough, nausea, abdominal pain, fevers, chills, trauma to lower extremities. Daughter states that patient has not had an abrupt change in his confusion. Patient has had a 10 pound weight gain over the past servearl weeks. Patient is compliant with his Lasix. he offers no complaints at this time (MAXIMINO RIVERA) Past History Travel History Traveled to [place] past 21 day No Medical History Any Pertinent Medical History? 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 Relation not specified for: FH: leukemia Hx Contributory? No (MAXIMINO RIVERA) Review of Systems Review of Systems Constitutional: Reports: see HPI, weakness. Comments Review of systems: See HPI, All other systems negative. Constitutional, no chills no fever, no malaise no weight loss, 10lb weight gain HEENT: No visual changes no sore throat no congestion, no ear pain Cardiovascular: No chest pain , no palpitation, +peripheral edema Skin: pruritis, wounds to lower extremities Respiratory: intermittent dyspnea, no cough no sputum no hemoptysis GI: No nausea no vomiting, no diarrhea, no bloating/constipation : No dysuria No hematuria, reports frequency and nocturia Muscle skeletal: No joint pain, no joint swelling, no back pain, no neck pain, Neurologic: No numbness, baseline confusion, no headache Psych: No stress no depression,. Heme/endocrine: No bruising no bleeding Immunology: No lymphadenopathy (MAXIMINO RIVERA) Physical Exam Physical Exam General Appearance: well developed/nourished, no apparent distress, alert, awake Comments: Well-developed well-nourished person in no acute distress HEENT: Normal hearing; EOMI, . HEAD is atraumatic. moist mucous membranes. Neck: Supple, normal range of motion without pain Cardiovascular: Regular rate and rhythms, harsh holosystolic murmur, normal JVP Respiratory: Chest nontender.There were no bony deformities, no asymmetry. No respiratory distress. Patient speaking in full complete sentences. Mild scattered expiratory wheezes: NO W/R/R Abdomen: Soft, nontender nondistended, no appreciable organomegaly, obese. Normal bowel sounds. No rebound/guarding, No ascites. Extremity: 2+ pitting edema bilaterally, full range of motion of extremities Neuro: Alert oriented to self and place, motor sensory normal. There were no obvious focal neurologic abnormalities. Skin: Multiple weeping wounds to bilateral lower extremities and feet, skin is warm and dry. Psych: Mood and affect is normal, memory and judgment is normal. Core Measures ACS in differential dx? Yes CVA/TIA Diagnosis: No Severe Sepsis Present: No Septic Shock Present: No (NAA UNDERWOOD,MAXIMINO) Progress Differential Diagnoses I considered the following diagnoses in my evaluation of the patient: [CHF exacerbation, CAD, peripheral vascular disease, chronic venous stasis, cellulitis, DVT, pleural effusion] Plan of Care: Orders Procedure Date/time Status Telemetry/Raisin Washer 09/05 1530 Active TROPONIN LEVEL 09/05 1503 Complete COMPREHENSIVE METABOLIC PANEL 09/05 1503 Complete CBC WITHOUT DIFFERENTIAL 09/05 1503 Complete B-TYPE NATRIURETIC PEP (BNP) 09/05 1503 Complete EKG 09/05 1450 Active Laboratory Tests 09/05/16 1511: Anion Gap 11, Estimated GFR > 60, BUN/Creatinine Ratio 17.0, Glucose 114 H, Calcium 8.2 L, Total Bilirubin 1.1, AST 17, ALT 33, Alkaline Phosphatase 124, Troponin I < 0.01, Qwx-H-Fumwblhomse Pept 478 H, Total Protein 6.8, Albumin 3.6 , Globulin 3.2, Albumin/Globulin Ratio 1.1, CBC w Diff NO MAN DIFF REQ, RBC 4.42 L, MCV 87.1, MCH 30.2, RDW 13.8, MPV 7.9, Gran % 61.3, Lymphocytes % 26.2, Monocytes % 8.5, Eosinophils % 3.6, Basophils % 0.4, Absolute Granulocytes 5.1, Absolute Lymphocytes 2.2, Absolute Monocytes 0.7 H, Absolute Eosinophils 0.3, Absolute Basophils 0, PUBS MCHC 34.7 llabs ordered old recor\\ds reviewed, casse d/w dr maddox. pt without any complaints at this time pt amb aaround room with nursing, he was able to sit up on his own without complication. d/w case management, pt has been seen numerous times in jasbir past for similar sx, d/w his daughter plan of care, they will f/u with pmd this week. she feels comfortable with her father being discahrged. i answered all of their qwuestions, return precautions d/w family at length PATIENT: HELENA MCFARLANE PRESENT AGE: 86 PATIENT ACCOUNT NO: [id number] : 29 LOCATION: [facility] ORDERING PHYSICIAN: MAXIMINO UNDERWOOD SERVICE DATE: 09/05/16 EXAM TYPE: RAD - XRY-PORTABLE CHEST XRAY EXAMINATION: XR PORTABLE CHEST CLINICAL INFORMATION: Dyspnea. Lower extremity swelling. COMPARISON: Portable chest x-ray 08/13/2016. TECHNIQUE: Portable frontal view of the chest was obtained. FINDINGS: The lungs are hypoinflated, without focal airspace consolidation. No pleural effusions or pneumothoraces are identified. Cardiomediastinal contours are stable. There is stable prominence of the cardiac silhouette, without overt pulmonary edema. Redemonstrated are median sternotomy wires and findings indicative of prior CABG. Soft tissues are unremarkable. No acute osseous abnormality is identified. IMPRESSION: No acute pulmonary process. Low lung volumes. Stable prominence of the cardiac silhouette, without overt pulmonary edema. DICTATED BY: LEONIDAS LOGAN MD DATE/TIME DICTATED:09/05/161600 ED TECH:NATA DATE/TIME TRANSCRIBED:09/05/161600 CONFIDENTIAL, DO NOT COPY WITHOUT APPROPRIATE AUTHORIZATION. <Electronically signed in Other Vendor System> SIGNED BY: LEONIDAS LOGAN MD 09/05/16 1607 (MAXIMINO RIVERA) Diagnostic Imaging: Viewed by Me: Radiology Read. Discussed w/RAD: Radiology Read. Initial ED EKG: Sinus rhythm at 60bpm with RBBB and PACs Prior EKG: unchanged (08/13/16) (MAXIMINO RIVERA) Departure Departure Time of Disposition: 1706 Disposition: HOME OR SELF CARE Condition: Stable Clinical Impression Primary Impression: Leg edema Referrals: HELIO LEONG MD (PCP/Family) Additional Instructions: CHANGE DRESSINGS DAILY, APPLY TRIAMCINOLONE CREAM TO BOTH LEGS ONCE A DAY. FOLLOW UP WITH DR LEONG AND DR RICHMOND. CONTINUE HIS MEDICATIONS LISTED. TRIAMCINOLONE CREAM DISCUSSED. RETURN WITH ANY CONCERNS Departure Forms: Customer Survey General Discharge Information Prescriptions: Current Visit Scripts Triamcinolone Acetonide 1 FALLON TOP BID #1 TUBE apply to affected area(s) (MAXIMINO RIVERA) PA/SIGN FABRICATOR Co-Sign Statement Statement: ED Attending supervision documentation- [] I saw and evaluated the patient. I have also reviewed all the pertinent lab results and diagnostic results. I agree with the findings and the plan of care as documented in the PA's/SIGN FABRICATOR's documentation. [X] I have reviewed the ED Record and agree with the PA's/SIGN FABRICATOR's documentation. [] Additions or exceptions (if any) to the PAs/SIGN FABRICATOR's note and plan are summarized below: [] (ALEXANDR MCMILLAN,ABNER) Critical Care Note Critical Care Note Critical Care Time: non-applicable (MAXIMINO RIVERA)
--- NOTE | 2016-09-05 16:09 | RADIOLOGY REPORT ---
EXAMINATION: XR PORTABLE CHEST CLINICAL INFORMATION: Dyspnea. Lower extremity swelling. COMPARISON: Portable chest x-ray 08/13/2016. TECHNIQUE: Portable frontal view of the chest was obtained. FINDINGS: The lungs are hypoinflated, without focal airspace consolidation. No pleural effusions or pneumothoraces are identified. Cardiomediastinal contours are stable. There is stable prominence of the cardiac silhouette, without overt pulmonary edema. Redemonstrated are median sternotomy wires and findings indicative of prior CABG. Soft tissues are unremarkable. No acute osseous abnormality is identified. IMPRESSION: No acute pulmonary process. Low lung volumes. Stable prominence of the cardiac silhouette, without overt pulmonary edema.
[2016-09-05] MEDS ORDERED: TRIAMCINOLONE A15 G3 TOP (17:13)
[2016-09-05 17:29] VITALS: BP 128/59
== END 2016-09-05 17:46 ==
LOC: ERH 14:49
PROVIDERS: Emergency Medicine
DX: R60.0 Localized edema (principal); R53.1 Weakness; R73.03 Prediabetes; I10 Essential (primary) hypertension; Z87.891 Personal history of nicotine dependence; F03.90 Unspecified dementia, unspecified severity, without behavioral disturbance, psychotic disturbance, mood disturbance, and anxiety
CPT/HCPCS: 93005; 93010

== ENCOUNTER 2017-04-30 22:59 | Inpatient (IN) | payer OTHER, MEDICARE ==
[~2017-04-30] VITALS: Ht 167.6 cm; Wt 90.7 kg
[~2017-04-30 22:59] MED LIST changes: +K-TAB ER10 MEQ PO; +LASIX40 M1 PO; +LASIX80 M1 PO
--- NOTE | 2017-04-30 23:21 | ED GI/GU/ABDOMINAL COMPLAINT ---
History of Present Illness General Chief Complaint: General Adult Stated Complaint: BACK PAIN, ABD PAIN, INCREASED LETHARGY Source: patient, family (daughter ), EMS Exam Limitations: no limitations Vital Signs & Intake/Output Vital Signs & Intake/Output Vital Signs Date Time Temp Pulse Resp B/P B/P Pulse O2 O2 Flow FiO2 Mean Ox Delivery Rate 05/01 315 98.1 75 18 188/81 95 Room Air 05/01 0315 98.1 75 18 188/81 05/01 0102 97.6 85 20 172/81 96 Room Air 04/30 2356 95 Room Air 04/30 2302 97.9 81 22 146/67 95 Room Air ED Intake and Output 05/01 0000 04/30 1200 Intake Total 1000 Output Total 700 Balance 300 Intake, IV 1000 Output, Urine 700 Patient 200 lb Weight Weight Reported by Patient Measurement Method Allergies Coded Allergies: Antihistamines - Alkylamine (UNKNOWN 04/30/17) Reconcile Medications Acetaminophen (Pain Reliever) 500 MG CAPSULE 2 TAB PO BID PRN PAIN (Reported) Aspirin (Ecotrin*) 81 MG TABLET.DR 1 TAB PO DAILY HEART/BLOOD (Reported) Atorvastatin Calcium (Lipitor) 20 MG TABLET 1 TAB PO DAILY CHOLESTEROL ( Reported) Clonidine HCl 0.1 MG TABLET 1 TAB PO DAILY HTN (Reported) Cyanocobalamin (Vitamin B-12) 1,000 MCG TABLET 1 TAB PO DAILY SUPPLEMENT ( Reported) Finasteride 5 MG TABLET 1 TAB PO DAILY PROSTATE (Reported) Folic Acid 1 MG TABLET 1 TAB PO DAILY SUPPLEMENT (Reported) Furosemide (Lasix) 40 MG TABLET 1 TAB PO EOD DIURETIC (Reported) Memantine HCl (Namenda) 10 MG TABLET 1 TAB PO BID MEMORY (Reported) Metoprolol Tartrate 25 MG TABLET 1 TAB PO BID HTN (Reported) Nystatin (Nyamyc) 100,000 UNIT/GRAM POWDER 1 FALLON TOP AD PRN UNKNOWN (Reported ) Omeprazole 40 MG CAPSULE.DR 1 CAP PO DAILY GI (Reported) Polyethylene Glycol 3350 (Miralax) 17 GRAM POWD.PACK 1 PAC PO DAILY PRN GI ( Reported) dissolve in water Potassium Chloride (K-Tab ER) 10 MEQ TABLET.ER 1 TAB PO DAILY SUPPLEMENT ( Reported) Selenium Sulfide 2.5 % SHAMPOO 1 FALLON TOP BID ABD & LEGS (Reported) Sennosides (Senna) 8.6 MG TABLET 1 TAB PO Monday GI (Reported) Tamsulosin HCl (Flomax) 0.4 MG CAP.ER.24H 1 CAP PO DAILY BPH (Reported) Trazodone HCl 50 MG TABLET 1 TAB PO BID UNKNOWN (Reported) Triamcinolone Acetonide 0.1 % OINT...G. 1 FALLON TOP AD PRN ABD & LEGS (Reported ) apply to affected area(s) Triamcinolone Acetonide 0.1 % OINT...G. 1 FALLON TOP BID dermatis apply to affected area(s) Triage Note: PT KARLY FROM [facility]. PER REPORT OF EMS THEY WERE CALLED TO HOME x 2 TODAY. THE FIRST VISIT WAS FOR LOW BACK PAIN BUT PATIENT REFUSED TRANSPORT TO HOSPITAL. THE SECOND CALL WAS FOR LOW ABD PAIN AND EMS STAFF FOUND PATIENT TO BE MORE LETHARGIC THEN EARLIER VISIT. FAMILY NOT PRESENT BUT EMS REPORT DAUGHTER WILL BE COMING IN. PT WITH HX OF ALZHEIMERS. ALERT/ORIENTED TO PERSON AND PLACE. WAS ABLE TO TELL THE DATE BUT READ IT ON THE BOARD IN THE ROOM, WHEN ASKED WHO THE PRESIDENT WAS RESPONDS ALFREDITO. WHEN ASKED ABOUT PAIN PATIENT RESPONDS "MY BELLY" BUT IS UNABLE TO FURTHER CLARIFY PAIN QUESTIONS. MARTHA PICKETT AT BEDSIDE FOR IV ACCESS AND BLOOD DRAW. KJ PATRICK INTO EVALUATE PATIENT ON ARRIVAL TO ED. Triage Nurses Notes Reviewed? yes Onset: Abrupt Duration: day(s): (1), changing over time, continues in ED Timing: multiple episodes today Quality/Severity: fullness Location: generalized abdomen Radiation: no radiation Activities at Onset: none Prior Abdominal Problems: none Past Sexual History: Unobtainable at this time No Modifying Factors: none Associated Symptoms: lower back pain HPI: 87-year-old male past medical history of hypertension, coronary artery disease, dementia brought in by EMS from assisted living for evaluation of back pain and abdominal pain. EMS was called to the facility twice today the first time was for low back pain patient refused transport. The second time patient reported low back pain and abdominal pain. EMS reports that he appears more lethargic than the first time however bedtime your brought to the ER he is now back to normal. Patient's daughter feels like his mental status is at baseline. She does feel like his abdomen is more distended than usual. Patient is unable to articulate exactly where his pain is what it feels like and when it started. He is also unable to say any associated symptoms. He does deny chest pain shortness of breath nausea vomiting diarrhea. He does not rubber his last bowel movement he is unsure when he last urinated. He denies any fever or coughing no urinary symptoms. No numbness or tingling no recent trauma no bowel or bladder dysfunction. (Terrence Amado) Past History Travel History Traveled to [place] past 21 day No Medical History Any Pertinent Medical History? 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 CHRONIC EDEMA RBBB Respiratory: NONE Gastrointestinal: diverticulosis Hepatic: NONE Renal: benign prost hyperplasia, URINARY RETENTION Musculoskeletal: NONE Psychiatric: NONE Endocrine: obesity, pre-DM Blood Disorders: vasculitis BACTEREMIA PVD Cancer(s): NONE SCULPTURE INSTRUCTOR/Reproductive: NONE History of MRSA: Yes History of VRE: No History of CDIFF: No Surgical History Surgical History: CABG ( 10 YRS AGO), QUAD BYPASS Psychosocial History Who do you live with Daughter Services at Home Home Health Aide What is your primary language Armenian Tobacco Use: Cognitive Impairment ETOH Use: 6 Illicit Drug Use: UTD Family History Family History, If Any: SON, , Age 30-40. Relation not specified for: FH: leukemia Hx Contributory? No (Terrence Amado) Review of Systems Review of Systems Constitutional: Reports: no symptoms. EENTM: Reports: no symptoms. Respiratory: Reports: no symptoms. Cardiovascular: Reports: no symptoms. GI: Reports: see HPI, abdominal pain. Genitourinary: Reports: no symptoms. Musculoskeletal: Reports: see HPI, back pain. Skin: Reports: no symptoms. Neurological/Psychological: Reports: no symptoms. Hematologic/Endocrine: Reports: no symptoms. Immunologic/Allergic: Reports: no symptoms. All Other Systems: Reviewed and Negative (Terrence Amado) Physical Exam Physical Exam General Appearance: well developed/nourished, no apparent distress, alert, awake , obese Head: atraumatic, normal appearance Eyes: Bilateral: normal appearance, PERRL, EOMI. Ears, Nose, Throat, Mouth: hearing grossly normal, moist mucous membrane Neck: normal inspection, supple, full range of motion Respiratory: normal breath sounds, chest non-tender, no respiratory distress, lungs clear Cardiovascular: regular rate/rhythm, normal peripheral pulses Peripheral Pulses: 2+ radial (R), 2+ radial (L) Gastrointestinal: normal bowel sounds, soft, no organomegaly, distention, tenderness (ruq, epigastric ) Back: normal inspection, normal range of motion, no vertebral tenderness Extremities: normal range of motion Neurologic/Psych: no motor/sensory deficits, awake, alert, normal gait, patient is alert and oriented to place and time only. When asked who the president's hE responds Alfredito Skin: intact, normal color, warm/dry Core Measures ACS in differential dx? No Sepsis Present: No Sepsis Focused Exam Completed? No (Christian UNDERWOOD,Terrence) Progress Differential Diagnosis: AAA, appendicitis, biliary colic, bowel obstruction, cholecystitis, diverticulitis, gastritis, hepatitis, hernia, inflamm bowel dis, pancreatitis, peptic ulcer, PUD/GERD, SBO, ureterolithiasis, UTI/pyelo Plan of Care: Orders Procedure Date/time Status Nothing by Mouth 05/01 B Active CBC WITHOUT DIFFERENTIAL 05/01 599 Active Pathway - chart 05/01 239 Active Patient Data 05/01 239 Active HEPATIC FUNCTION PANEL 05/01 024 Active Code Status 05/[address] in observation 05/01 0227 Active LACTIC ACID 05/01 0216 Complete Add-on Test (ER Only) 05/01 0104 Active VTE Mechanical Prophylaxis 05/01 UNK Active Vital Signs 05/01 UNK Active Intake & Output 05/01 UNK Active Activity/Ambulation 05/01 UNK Active LIPASE 04/30 2320 Complete RAPID VIRAL INFLUENZA A 04/30 2315 Complete URINALYSIS 04/30 2315 Complete TROPONIN LEVEL 04/30 2315 Complete LACTIC ACID 04/30 231 Complete COMPREHENSIVE METABOLIC PANEL 04/30 231 Complete CBC WITHOUT DIFFERENTIAL 04/30 231 Complete EKG 04/30 231 Active Current Medications Sig/Supa Start time Last Medication Dose Stop Time Status Admin Pantoprazole Sodium 40 MG DAILY 05/01 1000 AC (Protonix) Triamcinolone 1 FALLON BID 05/01 1000 AC Acetonide (Kenalog) Ampicillin Sodium/ 3,000 MG Q6 05/01 0600 AC Sulbactam Sodium (Unasyn) Sodium Chloride 100 ML (Normal Saline 0.9%) Heparin Sodium 5,000 UNIT Q8 05/01 06 AC (Porcine) Acetaminophen 1,000 MG Q6P PRN 05/01 0245 AC (Ofirmev) N/A 1 UNIT (No Carrier) Dextrose/Sodium 1,000 ML .Q8H 05/01 244 05/01 Chloride 0315 (D5W-1/2 Normal Saline 1000ML) Morphine Sulfate 2 MG Q2P PRN 05/01 244 05/01 (Morphine) 031 Ondansetron HCl 4 MG Q8P PRN 05/01 244 (Zofran) Sodium Chloride 2 SPRAY Q4P PRN 05/01 244 05/01 (Nasal) 0315 Metoprolol Tartrate 25 MG BID 05/01 240 05/01 (Lopressor) 0315 Laboratory Tests 05/01/17 0330: Total Bilirubin Pending, Direct Bilirubin Pending, AST Pending, ALT Pending, Alkaline Phosphatase Pending, Total Protein Pending, Albumin Pending 05/01/17 0230: Lactic Acid 1.6 04/30/17 2355: Urine Color YEL, Urine Clarity CLEAR, Urine pH 6.0, Ur Specific [place] 1.020, Urine Protein NEG, Urine Ketones NEG, Urine Nitrite NEG, Urine Bilirubin NEG, Urine Urobilinogen 1.0, Ur Leukocyte Esterase NEG, Ur Microscopic EXAM NOT REQUIRED, Urine Hemoglobin NEG, Urine Glucose NEG 04/30/17 2320: Anion Gap 15, Estimated GFR > 60, BUN/Creatinine Ratio 18.9, Glucose 256 H, Lactic Acid 2.9 H, Calcium 8.7, Total Bilirubin 1.1, AST 20, ALT 28, Alkaline Phosphatase 132 H, Troponin I < 0.01, Total Protein 6.9, Albumin 3.9, Globulin 3.0, Albumin/Globulin Ratio 1.3, Lipase 39, CBC w Diff NO MAN DIFF REQ, RBC 4.70 , MCV 88.5, MCH 30.2, MCHC 34.1, RDW 13.6, MPV 8.5, Gran % 78.7 H, Lymphocytes % 15.5 L, Monocytes % 4.8, Eosinophils % 0.6, Basophils % 0.4, Absolute Granulocytes 8.6 H, Absolute Lymphocytes 1.7, Absolute Monocytes 0.5, Absolute Eosinophils 0.1, Absolute Basophils 0 Microbiology 04/30 2321 NASOPHARYN: Influenza Virus A & B Rapid Smear - COMP Patient seen and evaluated. He has some mild epigastric and right upper quadrant tenderness on exam. We'll check basic labs CT scan of the abdomen pelvis with contrast EKG and chest x-ray. Patient was medicated with Tylenol before arrival. Blood work shows mildly elevated with blood cell count of 11 and a mildly elevated alkaline phosphatase. CT scan shows evidence of acute cholecystitis. Surgery was paged. Patient was medicated with IV Unasyn. Spoke with Dr. Mejía he recommends having surgical PA come down and evaluate the patient. Patient sent to Dr. Jaramillo pending evaluation by surgery. Diagnostic Imaging: Viewed by Me: Radiology Read. Discussed w/RAD: Radiology Read. CXR Impression: ATIENT: HELENA MCFARLANE PRESENT AGE: 87 PATIENT ACCOUNT NO: [id number] : 29 LOCATION: [facility] ORDERING PHYSICIAN: Terrence UNDERWOOD SERVICE DATE: 04/30/17 EXAM TYPE: RAD - XRY-PORTABLE CHEST XRAY EXAMINATION: XR PORTABLE CHEST CLINICAL INFORMATION: Pneumonia abdominal pain COMPARISON: Prior chest August 2016 TECHNIQUE: Portable frontal view of the chest was obtained. FINDINGS: Sternotomy wires in place and intact. Low lung volumes. Lungs clear. Cardiac silhouette mediastinum pulmonary vascularity normal. IMPRESSION: No acute disease. DICTATED BY: Johny Gusman MD DATE/TIME DICTATED:04/30/172353 STEEL LAYER:NATA DATE/TIME TRANSCRIBED:04/30/172353 CONFIDENTIAL, DO NOT COPY WITHOUT APPROPRIATE AUTHORIZATION. Initial ED EKG: normal sinus rhythm, RBBB, LAFB Hand-Off Endorsed To: William Jaramillo MD Endorsed Time: 140 Pending: consult (surgery) (Terrence Amado) Departure Departure Disposition: STILL A PATIENT Condition: Stable Clinical Impression Primary Impression: Acute cholecystitis Departure Forms: Customer Survey General Discharge Information (Terrence Amado) Departure Referrals: Garret MCMILLAN,Obinna Kennedy (PCP/Family) PA/SENIOR ELECTRONICS DESIGN ENGINEER Co-Sign Statement Statement: ED Attending supervision documentation- [x] I saw and evaluated the patient. I have also reviewed all the pertinent lab results and diagnostic results. I agree with the findings and the plan of care as documented in the PA's/SENIOR ELECTRONICS DESIGN ENGINEER's documentation. 05/01/17, 2:27am... pt with evidency of acute cholecystitis... pt merits surgical adission for iv abx, serial exams. [] I have reviewed the ED Record and agree with the PA's/SENIOR ELECTRONICS DESIGN ENGINEER's documentation. [] Additions or exceptions (if any) to the PAs/SENIOR ELECTRONICS DESIGN ENGINEER's note and plan are summarized below: [] (Ella MCMILLAN,William Potter)
[2017-04-30 23:37] LABS: ABSOLUTE BASOPHIL COUNT 0 /CUMM (0.0-0.2); ABSOLUTE EOSINOPHIL COUNT 0.1 /CUMM (0.0-0.7); ABSOLUTE GRANULOCYTE CT 8.6 /CUMM (1.4-6.5); ABSOLUTE LYMPH COUNT 1.7 /CUMM (1.2-3.4); ABSOLUTE MONOCYTE COUNT 0.5 /CUMM (0.10-0.60); BASOPHIL % 0.4 % (0.0-2.0); EOSINOPHIL % 0.6 % (0-5); GRANULOCYTE % 78.7 % (42.2-75.2); HEMATOCRIT 41.6 % (42-52); MEAN CORPUSCULAR HGB 30.2 PG (27.0-31.0); MEAN CORPUSCULAR HGB CONC 34.1 G/DL (33.0-37.0); MEAN CORPUSCULAR VOLUME 88.5 FL (80.0-94.0); MEAN PLATELET VOLUME 8.5 FL (7.4-10.4); PLATELET COUNT 200 /CUMM (130-400); RBC DISTRIBUTION WIDTH 13.6 % (11.5-14.5); WHITE BLOOD CELL COUNT 10.9 /CUMM (4.8-10.8)
--- NOTE | 2017-04-30 23:59 | RADIOLOGY REPORT ---
EXAMINATION: XR PORTABLE CHEST CLINICAL INFORMATION: Pneumonia abdominal pain COMPARISON: Prior chest August 2016 TECHNIQUE: Portable frontal view of the chest was obtained. FINDINGS: Sternotomy wires in place and intact. Low lung volumes. Lungs clear. Cardiac silhouette mediastinum pulmonary vascularity normal. IMPRESSION: No acute disease.
--- NOTE | 2017-05-01 01:05 | CT SCAN REPORT ---
EXAMINATION: CT ABDOMEN AND PELVIS WITH CONTRAST CLINICAL INFORMATION: Small bowel obstruction. Diffuse abdominal pain. Distention of abdomen. COMPARISON: CT abdomen pelvis June 22, 2015 TECHNIQUE: Multidetector volumetric imaging was performed of the abdomen and pelvis following IV administration of 95 mL of Optiray 320 intravenous contrast. Sagittal and coronal reformatted images were obtained on the technologist's workstation. DLP: 969.52 mGy-cm FINDINGS: LUNG BASES: Interstitial lung disease. Thickened interstitial lung markings at both lung bases with subpleural blebs and honeycombing. No pleural effusion. There is calcification of coronary arteries. Status post aortic valve repair. Status post median sternotomy. LIVER, GALLBLADDER, AND BILIARY TREE: The liver is normal in size, shape, and attenuation. No focal hepatic lesion or biliary ductal dilatation is present. Multiple small gallstones layering dependently in the neck of the gallbladder. There is a small amount of edema around the gallbladder. This raises question of an acute cholecystitis. There is no bile duct dilatation. Extrahepatic CBD measures 3 mm. PANCREAS: Unremarkable. SPLEEN: Unremarkable. ADRENAL GLANDS: Unremarkable. KIDNEYS AND URETERS: The kidneys are normal in size, shape, and attenuation. No hydronephrosis, hydroureter, or calculi seen. No perinephric stranding. BLADDER: Unremarkable. GASTROINTESTINAL TRACT: No acute change of the bowel. No bowel obstruction. No bowel wall thickening or edema. Moderate amount of stool throughout the colon. There is diverticulosis of the colon but no diverticulitis. The appendix is normal. Small bowel loops are unremarkable. ABDOMINAL WALL: Fat-containing umbilical hernia. There are small bilateral fat-containing inguinal hernias. LYMPH NODES: Normal. VASCULAR: Atherosclerotic vascular wall calcification of aorta and iliac vessels without aneurysm. PELVIC VISCERA: Prostate enlarged. Impresses into the bladder base. Measures 6 cm transverse. OSSEOUS STRUCTURES: Degenerative spondylosis of spine with multilevel disc height narrowing and endplate spurring and facet joint arthrosis. Slight loss of height of L4 vertebrae. There is a large hemangioma in the L4 vertebral body. IMPRESSION: 1. Cholelithiasis. Edema around the gallbladder raising concern for an acute cholecystitis. No bile duct dilatation. 2. Interstitial lung disease.
--- NOTE | 2017-05-01 03:07 | History & Physical Pre-Op ---
Alek Alvarenga 05/01/17 0244: General Information and HPI MD Statement: I have seen and personally examined HELENA MCFARLANE and documented this H&P. The patient is a 87 year old M who presented with a patient stated chief complaint of [abdominal pain]. Source of Information: patient, family, old records Exam Limitations: dementia History of Present Illness: Thisn is an 87 year-old male with a history of dementia, hypertension, coronary artery disease s/p quadruple bypass, hyperlipidemia, aortic stenosis, benign prostate hyperplasia and a history of urinary retention who was brought in by EMS from assisted living home with acute onset of abdominal pain since this afternoon. Patient reports right upper quadrant pain that radiates around his back and a stuffy nose since my arrival. He reports the pain is intermittent and discomforting. He states the pain is worse with palpation. He cannot recall what he last ate or if his abdominal pain has any relation to food. He denies any similar episodes. In the ER he had a CT scan which revealed cholelithiasis with edema around the gallbladder, concernerning for an acute cholecystitis and no bile duct dilatation. He denies any fever, chills, vomiting, chest pain, shortness of breath or difficulty breathing. Allergies/Medications Allergies: Coded Allergies: Antihistamines - Alkylamine (UNKNOWN 04/30/17) Home Med list Acetaminophen (Pain Reliever) 500 MG CAPSULE 2 TAB PO BID PRN PAIN (Reported) Aspirin (Ecotrin*) 81 MG TABLET.DR 1 TAB PO DAILY HEART/BLOOD (Reported) Atorvastatin Calcium (Lipitor) 20 MG TABLET 1 TAB PO DAILY CHOLESTEROL ( Reported) Clonidine HCl 0.1 MG TABLET 1 TAB PO DAILY HTN (Reported) Cyanocobalamin (Vitamin B-12) 1,000 MCG TABLET 1 TAB PO DAILY SUPPLEMENT ( Reported) Finasteride 5 MG TABLET 1 TAB PO DAILY PROSTATE (Reported) Folic Acid 1 MG TABLET 1 TAB PO DAILY SUPPLEMENT (Reported) Furosemide (Lasix) 40 MG TABLET 1 TAB PO EOD DIURETIC (Reported) Memantine HCl (Namenda) 10 MG TABLET 1 TAB PO BID MEMORY (Reported) Metoprolol Tartrate 25 MG TABLET 1 TAB PO BID HTN (Reported) Nystatin (Nyamyc) 100,000 UNIT/GRAM POWDER 1 [place] TOP AD PRN UNKNOWN (Reported ) Omeprazole 40 MG CAPSULE.DR 1 CAP PO DAILY GI (Reported) Polyethylene Glycol 3350 (Miralax) 17 GRAM POWD.PACK 1 PAC PO DAILY PRN GI ( Reported) dissolve in water Potassium Chloride (K-Tab ER) 10 MEQ TABLET.ER 1 TAB PO DAILY SUPPLEMENT ( Reported) Selenium Sulfide 2.5 % SHAMPOO 1 [place] TOP BID ABD & LEGS (Reported) Sennosides (Senna) 8.6 MG TABLET 1 TAB PO Monday GI (Reported) Tamsulosin HCl (Flomax) 0.4 MG CAP.ER.24H 1 CAP PO DAILY BPH (Reported) Trazodone HCl 50 MG TABLET 1 TAB PO BID UNKNOWN (Reported) Triamcinolone Acetonide 0.1 % OINT...G. 1 FALLON TOP AD PRN ABD & LEGS (Reported ) apply to affected area(s) Triamcinolone Acetonide 0.1 % OINT...G. 1 FALLON TOP BID dermatis apply to affected area(s) Past History Medical History Neurological: Alzheimer's disease EENT: NONE Cardiovascular: aortic stenosis, CAD, hypertension, hyperlipidemia, QUAD BYPASS 70% CAROTID ARTERY OCCLUS CHRONIC EDEMA RBBB Respiratory: NONE Gastrointestinal: diverticulosis Hepatic: NONE Renal: benign prost hyperplasia, URINARY RETENTION Musculoskeletal: NONE Psychiatric: NONE Endocrine: obesity, pre-DM Blood Disorders: vasculitis BACTEREMIA PVD Cancer(s): NONE CONTRACT AGENT/Reproductive: NONE History of MRSA: Yes History of VRE: No History of CDIFF: No Surgical History Pertinent Surgical History: CABG ( 10 YRS AGO), QUAD BYPASS Past Family/Social History Family History Relations & Conditions if any SON, , Age 30-40. Relation not specified for: FH: leukemia Psychosocial History Services at Home Home Health Aide Review of Systems Review of Systems: Constitutional: Reports: no symptoms. EENTM: Reports: no symptoms. Respiratory: Reports: no symptoms. Cardiovascular: Reports: no symptoms. GI: Reports: see HPI. Genitourinary: Reports: no symptoms. Musculoskeletal: Reports: see HPI. Skin: Reports: no symptoms. All Other Systems: Reviewed and Negative Exam & Diagnostic Data Last 24 Hrs of Vital Signs/I&O Vital Signs Date Time Temp Pulse Resp B/P B/P Pulse O2 O2 Flow FiO2 Mean Ox Delivery Rate 05/01 0102 97.6 85 20 172/81 96 Room Air 04/30 2356 95 Room Air 04/30 2302 97.9 81 22 146/67 95 Room Air Intake & Output 05/01 0800 02 0000 04/30 1600 Intake Total 1000 Output Total 600 Balance 400 Intake, IV 1000 Output, Urine 600 Patient 200 lb Weight Weight Reported by Patient Measurement Method Physical Exam: General: Laying flat on stretcher awake an alert x2 in NAD accompanied by his daughter HEENT: NC/AT, scleara anicteria, dry mucus membranes Cardiac: S1S2 noted Lungs: CTAB Abdomen: Soft and protuberant with hypoactive bowel sounds, reducible umbilical hernia, dull to percussion, significantly tender to palpation in RUQ with voluntary guarding, no rebound, mildly tender in epigastric region, postive espinosa's. Extremities: No edema or calf tenderness Last 24 Hrs of Labs/Mark: Laboratory Tests 05/01/17 0230: Lactic Acid Pending 04/30/17 2355: Urine Color YEL, Urine Clarity CLEAR, Urine pH 6.0, Ur Specific [place] 1.020, Urine Protein NEG, Urine Ketones NEG, Urine Nitrite NEG, Urine Bilirubin NEG, Urine Urobilinogen 1.0, Ur Leukocyte Esterase NEG, Ur Microscopic EXAM NOT REQUIRED, Urine Hemoglobin NEG, Urine Glucose NEG 04/30/17 2320: Anion Gap 15, Estimated GFR > 60, BUN/Creatinine Ratio 18.9, Glucose 256 H, Lactic Acid 2.9 H, Calcium 8.7, Total Bilirubin 1.1, AST 20, ALT 28, Alkaline Phosphatase 132 H, Troponin I < 0.01, Total Protein 6.9, Albumin 3.9, Globulin 3.0, Albumin/Globulin Ratio 1.3, Lipase 39, CBC w Diff NO MAN DIFF REQ, RBC 4.70 , MCV 88.5, MCH 30.2, MCHC 34.1, RDW 13.6, MPV 8.5, Gran % 78.7 H, Lymphocytes % 15.5 L, Monocytes % 4.8, Eosinophils % 0.6, Basophils % 0.4, Absolute Granulocytes 8.6 H, Absolute Lymphocytes 1.7, Absolute Monocytes 0.5, Absolute Eosinophils 0.1, Absolute Basophils 0 Microbiology 04/30 2321 NASOPHARYN: Influenza Virus A & B Rapid Smear - COMP Diagnostic Data CXR Results SERVICE DATE: 04/30/17-2315 EXAM TYPE: RAD - XRY-PORTABLE CHEST XRAY EXAMINATION: XR PORTABLE CHEST CLINICAL INFORMATION: Pneumonia abdominal pain COMPARISON: Prior chest August 2016 TECHNIQUE: Portable frontal view of the chest was obtained. FINDINGS: Sternotomy wires in place and intact. Low lung volumes. Lungs clear. Cardiac silhouette mediastinum pulmonary vascularity normal. IMPRESSION: No acute disease. Other Results SERVICE DATE: 04/30/17 EXAM TYPE: CAT - CT ABD & PELVIS W IV CONTRAST EXAMINATION: CT ABDOMEN AND PELVIS WITH CONTRAST CLINICAL INFORMATION: Small bowel obstruction. Diffuse abdominal pain. Distention of abdomen. COMPARISON: CT abdomen pelvis June 22, 2015 TECHNIQUE: Multidetector volumetric imaging was performed of the abdomen and pelvis following IV administration of 95 mL of Optiray 320 intravenous contrast. Sagittal and coronal reformatted images were obtained on the technologist's workstation. DLP: 969.52 mGy-cm FINDINGS: LUNG BASES: Interstitial lung disease. Thickened interstitial lung markings at both lung bases with subpleural blebs and honeycombing. No pleural effusion. There is calcification of coronary arteries. Status post aortic valve repair. Status post median sternotomy. LIVER, GALLBLADDER, AND BILIARY TREE: The liver is normal in size, shape, and attenuation. No focal hepatic lesion or biliary ductal dilatation is present. Multiple small gallstones layering dependently in the neck of the gallbladder. There is a small amount of edema around the gallbladder. This raises question of an acute cholecystitis. There is no bile duct dilatation. Extrahepatic CBD measures 3 mm. PANCREAS: Unremarkable. SPLEEN: Unremarkable. ADRENAL GLANDS: Unremarkable. KIDNEYS AND URETERS: The kidneys are normal in size, shape, and attenuation. No hydronephrosis, hydroureter, or calculi seen. No perinephric stranding. BLADDER: Unremarkable. GASTROINTESTINAL TRACT: No acute change of the bowel. No bowel obstruction. No bowel wall thickening or edema. Moderate amount of stool throughout the colon. There is diverticulosis of the colon but no diverticulitis. The appendix is normal. Small bowel loops are unremarkable. ABDOMINAL WALL: Fat-containing umbilical hernia. There are small bilateral fat-containing inguinal hernias. LYMPH NODES: Normal. VASCULAR: Atherosclerotic vascular wall calcification of aorta and iliac vessels without aneurysm. PELVIC VISCERA: Prostate enlarged. Impresses into the bladder base. Measures 6 cm transverse. OSSEOUS STRUCTURES: Degenerative spondylosis of spine with multilevel disc height narrowing and endplate spurring and facet joint arthrosis. Slight loss of height of L4 vertebrae. There is a large hemangioma in the L4 vertebral body. IMPRESSION: 1. Cholelithiasis. Edema around the gallbladder raising concern for an acute cholecystitis. No bile duct dilatation. 2. Interstitial lung disease. Assessment/Plan Assessment/Plan: This is an 87 year-old male with multiple co-morbidities who presents with cholelithiasis and acute cholecystitis Place in observation for surgical intervention Proceed to OR tomorrow of laparoscopic cholecystectomy with Dr. Mejía Keep npo on IVF Unaysn 3 mg every 6 hours Analgesics/antiemetics/antipyretics prn Repeat LFTs in am Saline nasal spray prn for congestion GI/DVT prophylaxsis on board Obtain cardiac clearance preop Discussed with Dr. Mejía As Ranked By This Provider Problem List: 1. Acute cholecystitis Vasquez Mejía MD 05/01/17 1618: Attending MD Review Statement Attending Statement Attending MD Statement: examined this patient, discuss w/resident/PA/TYPING CHECKER, discussed with family, reviewed images, discussed with Scientific Process Operator Attending Assessment/Plan: This is an 87-year-old male with early Alzheimer's dementia. He presents with signs and symptoms consistent with acute cholecystitis. Major comorbidity for him is that of aortic stenosis. Discussion was made with his electrical drafter who feels that there is no modification of his risk factors for can be performed due to him being deemed unsuitable for TAVR. My main concern is that of his focal peritonitis in the right upper quadrant with low-grade fevers. He likely has gangrenous cholecystitis due to gallstone disease. The only alternative to surgical intervention would be that of percutaneous cholecystostomy tube. Unfortunately in the setting of gallstone disease, this is only a temporizing measure with ultimate need for cholecystectomy in the future. For that reason there is no role for percutaneous tube given his relative stability now. Plan will be to proceed with laparoscopic cholecystectomy. Patient and his conservator (daughter) were informed the risk of surgery including bleeding bleeding, infection, conversion to open, postcholecystectomy diarrhea and organ injury. There is the added complications of cardiac related to his aortic stenosis. All are in agreement to proceed.
--- NOTE | 2017-05-01 03:08 | Admission Core Measures ---
Acute Coronary Syndrome (CM) ACS Core Measures Acute Coronary Syndrome Diagnosis No Congestive Heart Failure (NEW) CHF Core Measures Congestive Heart Failure Diagnosis No Cerebrovascular Accident (NEW) CVA Core Measures CVA/TIA Diagnosis No Venous Thromboembolism VTE Core Chase (View Protocol) VTE Risk Factors Age>40 No Mechanical VTE Prophylaxis d/t N/A MechProphylax Ordered No VTE Pharm Prophylaxis d/t NA PharmProphylax ordered Problem List As ranked by this Provider includes Assessment & Plan 1. Acute cholecystitis HOME MEDS Home Med List Acetaminophen (Pain Reliever) 500 MG CAPSULE 2 TAB PO BID PRN PAIN (Reported) Aspirin (Ecotrin*) 81 MG TABLET.DR 1 TAB PO DAILY HEART/BLOOD (Reported) Atorvastatin Calcium (Lipitor) 20 MG TABLET 1 TAB PO DAILY CHOLESTEROL ( Reported) Clonidine HCl 0.1 MG TABLET 1 TAB PO DAILY HTN (Reported) Cyanocobalamin (Vitamin B-12) 1,000 MCG TABLET 1 TAB PO DAILY SUPPLEMENT ( Reported) Finasteride 5 MG TABLET 1 TAB PO DAILY PROSTATE (Reported) Folic Acid 1 MG TABLET 1 TAB PO DAILY SUPPLEMENT (Reported) Furosemide (Lasix) 40 MG TABLET 1 TAB PO EOD DIURETIC (Reported) Memantine HCl (Namenda) 10 MG TABLET 1 TAB PO BID MEMORY (Reported) Metoprolol Tartrate 25 MG TABLET 1 TAB PO BID HTN (Reported) Nystatin (Nyamyc) 100,000 UNIT/GRAM POWDER 1 [place] TOP AD PRN UNKNOWN (Reported ) Omeprazole 40 MG CAPSULE.DR 1 CAP PO DAILY GI (Reported) Polyethylene Glycol 3350 (Miralax) 17 GRAM POWD.PACK 1 PAC PO DAILY PRN GI ( Reported) Potassium Chloride (K-Tab ER) 10 MEQ TABLET.ER 1 TAB PO DAILY SUPPLEMENT ( Reported) Selenium Sulfide 2.5 % SHAMPOO 1 [place] TOP BID ABD & LEGS (Reported) Sennosides (Senna) 8.6 MG TABLET 1 TAB PO Monday GI (Reported) Tamsulosin HCl (Flomax) 0.4 MG CAP.ER.24H 1 CAP PO DAILY BPH (Reported) Trazodone HCl 50 MG TABLET 1 TAB PO BID UNKNOWN (Reported) Triamcinolone Acetonide 0.1 % OINT...G. 1 [place] TOP AD PRN ABD & LEGS (Reported ) Triamcinolone Acetonide 0.1 % OINT...G. 1 FALLON TOP BID dermatis
[2017-05-01 08:18] LABS: ABSOLUTE BASOPHIL COUNT 0.1 /CUMM (0.0-0.2); ABSOLUTE EOSINOPHIL COUNT 0 /CUMM (0.0-0.7); ABSOLUTE GRANULOCYTE CT 9.1 /CUMM (1.4-6.5); ABSOLUTE LYMPH COUNT 1.6 /CUMM (1.2-3.4); ABSOLUTE MONOCYTE COUNT 0.6 /CUMM (0.10-0.60); BASOPHIL % 0.5 % (0.0-2.0); EOSINOPHIL % 0.4 % (0-5); GRANULOCYTE % 79.7 % (42.2-75.2); HEMATOCRIT 43.5 % (42-52); MEAN CORPUSCULAR HGB 30.5 PG (27.0-31.0); MEAN CORPUSCULAR HGB CONC 34.4 G/DL (33.0-37.0); MEAN CORPUSCULAR VOLUME 88.8 FL (80.0-94.0); MEAN PLATELET VOLUME 8.6 FL (7.4-10.4); PLATELET COUNT 202 /CUMM (130-400); RBC DISTRIBUTION WIDTH 13.6 % (11.5-14.5); WHITE BLOOD CELL COUNT 11.4 /CUMM (4.8-10.8)
[2017-05-01 11:23] VITALS: BP 130/72
--- NOTE | 2017-05-01 12:08 | Cons- Cardiology ---
General Information and HPI Consulting Request Date of Consult: 05/01/17 Requested By: Alfonzo MCMILLAN,Vasquez Quispe Reason for Consult: Surgical clearance. Source of Information: patient, old records Exam Limitations: dementia History of Present Illness: Mr. Te Daniel is an 87-year-old male with a hx of Alzheimer's dementia, ILD, HTN, HLD, pre-DM, carotid artery disease (mild by carotid ultrasound 10/06/2015), CAD (s/p CABG x4 09/26/2001 w/ NEGRON to LAD and SVGs to the Dx of LAD, M1 of LCx, and distal RCA; last pharmacologic stress test 07/2008 negative for ischemia), conduction disease (chronic RBBB), and valvular heart disease (severe range aortic stenosis by echocardiogram 10/13/2015 that also revealed moderate LVH with impaired relaxation and preserved EF 65-70%), who presented to the ED from his assisted living facility with abdominal pain and exam revealing distended abdomen, absent bowel sounds, etc. and CT of the abdomen/pelvis revealing cholelithiasis and the suspicion of cholecystitis and elevated temperature, WBC's, etc. Mr. Daniel can give no reliable history, but denies any chest discomfort, palpitations, shortness of breath, orthopnea, lower extremity edema, etc. We did discuss management options with family members in regard to his severe aortic stenosis back in 2015, and at the time they wanted to consider TAVR. As such we had Mr. Daniel evaluated at the [facility] by the Structural Heart Team (Panchito Garcia M.D.) on 11/06/2015. Mr. Daniel was not felt to be a good candidate for TAVR. The family was comfortable with this decision. Allergies/Medications Allergies: Coded Allergies: Antihistamines - Alkylamine (UNKNOWN 04/30/17) Home Med List: Acetaminophen (Pain Reliever) 500 MG CAPSULE 2 TAB PO BID PRN PAIN (Reported) Aspirin (Ecotrin*) 81 MG TABLET.DR 1 TAB PO DAILY HEART/BLOOD (Reported) Atorvastatin Calcium (Lipitor) 20 MG TABLET 1 TAB PO DAILY CHOLESTEROL ( Reported) Clonidine HCl 0.1 MG TABLET 1 TAB PO DAILY HTN (Reported) Cyanocobalamin (Vitamin B-12) 1,000 MCG TABLET 1 TAB PO DAILY SUPPLEMENT ( Reported) Finasteride 5 MG TABLET 1 TAB PO DAILY PROSTATE (Reported) Folic Acid 1 MG TABLET 1 TAB PO DAILY SUPPLEMENT (Reported) Furosemide (Lasix) 40 MG TABLET 1 TAB PO EOD DIURETIC (Reported) Memantine HCl (Namenda) 10 MG TABLET 1 TAB PO BID MEMORY (Reported) Metoprolol Tartrate 25 MG TABLET 1 TAB PO BID HTN (Reported) Nystatin (Nyamyc) 100,000 UNIT/GRAM POWDER 1 [place] TOP AD PRN UNKNOWN (Reported ) Omeprazole 40 MG CAPSULE.DR 1 CAP PO DAILY GI (Reported) Polyethylene Glycol 3350 (Miralax) 17 GRAM POWD.PACK 1 PAC PO DAILY PRN GI ( Reported) dissolve in water Potassium Chloride (K-Tab ER) 10 MEQ TABLET.ER 1 TAB PO DAILY SUPPLEMENT ( Reported) Selenium Sulfide 2.5 % SHAMPOO 1 [place] TOP BID ABD & LEGS (Reported) Sennosides (Senna) 8.6 MG TABLET 1 TAB PO Monday GI (Reported) Tamsulosin HCl (Flomax) 0.4 MG CAP.ER.24H 1 CAP PO DAILY BPH (Reported) Trazodone HCl 50 MG TABLET 1 TAB PO BID UNKNOWN (Reported) Triamcinolone Acetonide 0.1 % OINT...G. 1 [place] TOP AD PRN ABD & LEGS (Reported ) apply to affected area(s) Triamcinolone Acetonide 0.1 % OINT...G. 1 F[place] TOP BID dermatis apply to affected area(s) Review of Systems Review of Systems: Unobtainable, given patient's dementia. Past History Travel History Traveled to [place] past 21 day No Medical History Neurological: Alzheimer's disease EENT: NONE Cardiovascular: aortic stenosis, CAD, hypertension, hyperlipidemia, QUAD BYPASS 70% CAROTID ARTERY OCCLUS CHRONIC EDEMA RBBB Respiratory: NONE Gastrointestinal: diverticulosis Hepatic: NONE Renal: benign prost hyperplasia, URINARY RETENTION Musculoskeletal: NONE Psychiatric: NONE Endocrine: obesity, pre-DM Blood Disorders: vasculitis BACTEREMIA PVD Cancer(s): NONE POWER REGULATOR/Reproductive: NONE Surgical History Surgical History: CABG ( 10 YRS AGO), QUAD BYPASS Family History Relations & Conditions If Any: SON, , Age 30-40. Relation not specified for: FH: leukemia Psychosocial History Services at Home: Home Health Aide Exam & Diagnostic Data Vital Signs and I&O Vital Signs Date Time Temp Pulse Resp B/P B/P Pulse O2 O2 Flow FiO2 Mean Ox Delivery Rate 05/01 1123 99.4 99 18 130/72 91 Room Air 05/01 1010 100.2 100 18 140/74 98 02 1006 100 18 140/74 05/01 0834 98.3 84 22 170/88 93 05/01 0603 95 Room Air 05/01 0603 97.7 71 18 157/82 95 Room Air 05/01 0316 98.1 75 18 188/81 95 Room Air 05/01 0315 98.1 75 18 188/81 02 0102 97.6 85 20 172/81 96 Room Air 04/30 2356 95 Room Air 04/30 2302 97.9 81 22 146/67 95 Room Air Intake & Output 05/01 1600 05/01 0800 05/01 0000 04/30 1600 04/30 0800 04/30 0000 Intake Total 1000 Output Total 700 Balance 300 Intake, IV 1000 Output, Urine 700 Patient 200 lb 200 lb Weight Weight Reported by Patient Measurement Method Physical Exam: Well-developed, overweight elderly male in no acute distress. Vital signs: See above. HEENT: Normocephalic, atraumatic, EOMI, moist mucous membranes. Neck: No JVD. Lungs: Clear to auscultation bilaterally. Heart: S1, S2 (diminished) with grade 2/6 systolic ejection murmur best heard near the base. No gallop or rub. Abdomen: Distended, absent bowel sounds, tender. Extremities: No edema. Labs/Mark Results: Laboratory Tests 05/01 05/01 05/01 0618 0330 0230 Chemistry Lactic Acid (0.7 - 2.1 mmol/L) 1.6 Total Bilirubin (0.2 - 1.3 mg/dL) 1.1 Direct Bilirubin (< 0.4 mg/dL) 0.2 AST (17 - 59 U/L) 23 ALT (21 - 72 U/L) 34 Alkaline Phosphatase (< 127 U/L) 145 H Total Protein (6.3 - 8.2 g/dL) 6.9 Albumin (3.5 - 5.0 g/dL) 3.8 Hematology CBC w Diff NO MAN DIFF REQ WBC (4.8 - 10.8 /CUMM) 11.4 H RBC (4.70 - 6.10 /CUMM) 4.90 Hgb (14.0 - 18.0 G/DL) 14.9 Hct (42 - 52 %) 43.5 MCV (80.0 - 94.0 FL) 88.8 MCH (27.0 - 31.0 PG) 30.5 MCHC (33.0 - 37.0 G/DL) 34.4 RDW (11.5 - 14.5 %) 13.6 Plt Count (130 - 400 /CUMM) 202 MPV (7.4 - 10.4 FL) 8.6 Gran % (42.2 - 75.2 %) 79.7 H Lymphocytes % (20.5 - 51.1 %) 13.8 L Monocytes % (1.7 - 9.3 %) 5.6 Eosinophils % (0 - 5 %) 0.4 Basophils % (0.0 - 2.0 %) 0.5 Absolute Granulocytes (1.4 - 6.5 /CUMM) 9.1 H Absolute Lymphocytes (1.2 - 3.4 /CUMM) 1.6 Absolute Monocytes (0.10 - 0.60 /CUMM) 0.6 Absolute Eosinophils (0.0 - 0.7 /CUMM) 0 Absolute Basophils (0.0 - 0.2 /CUMM) 0.1 04/30 04/30 2355 2320 Chemistry Sodium (137 - 145 mmol/L) 140 Potassium (3.5 - 5.1 mmol/L) 4.1 Chloride (98 - 107 mmol/L) 99 Carbon Dioxide (22 - 30 mmol/L) 25 Anion Gap (5 - 16) 15 BUN (9 - 20 mg/dL) 17 Creatinine (0.7 - 1.2 mg/dL) 0.9 Estimated GFR (>60 ml/min) > 60 BUN/Creatinine Ratio (7 - 25 %) 18.9 Glucose (65 - 99 mg/dL) 256 H Lactic Acid (0.7 - 2.1 mmol/L) 2.9 H Calcium (8.4 - 10.2 mg/dL) 8.7 Total Bilirubin (0.2 - 1.3 mg/dL) 1.1 AST (17 - 59 U/L) 20 ALT (21 - 72 U/L) 28 Alkaline Phosphatase (< 127 U/L) 132 H Troponin I (<0.11 ng/ml) < 0.01 Total Protein (6.3 - 8.2 g/dL) 6.9 Albumin (3.5 - 5.0 g/dL) 3.9 Globulin (1.9 - 4.2 gm/dL) 3.0 Albumin/Globulin Ratio (1.1 - 2.2 %) 1.3 Lipase (23 - 300 U/L) 39 Hematology CBC w Diff NO MAN DIFF REQ WBC (4.8 - 10.8 /CUMM) 10.9 H RBC (4.70 - 6.10 /CUMM) 4.70 Hgb (14.0 - 18.0 G/DL) 14.2 Hct (42 - 52 %) 41.6 L MCV (80.0 - 94.0 FL) 88.5 MCH (27.0 - 31.0 PG) 30.2 MCHC (33.0 - 37.0 G/DL) 34.1 RDW (11.5 - 14.5 %) 13.6 Plt Count (130 - 400 /CUMM) 200 MPV (7.4 - 10.4 FL) 8.5 Gran % (42.2 - 75.2 %) 78.7 H Lymphocytes % (20.5 - 51.1 %) 15.5 L Monocytes % (1.7 - 9.3 %) 4.8 Eosinophils % (0 - 5 %) 0.6 Basophils % (0.0 - 2.0 %) 0.4 Absolute Granulocytes (1.4 - 6.5 /CUMM) 8.6 H Absolute Lymphocytes (1.2 - 3.4 /CUMM) 1.7 Absolute Monocytes (0.10 - 0.60 /CUMM) 0.5 Absolute Eosinophils (0.0 - 0.7 /CUMM) 0.1 Absolute Basophils (0.0 - 0.2 /CUMM) 0 Urines Urine Color (YEL,AMB,STR) YEL Urine Clarity (CLEAR) CLEAR Urine pH (5.0 - 8.0) 6.0 Ur Specific [place] (1.001 - 1.035) 1.020 Urine Protein (NEG,<30 MG/DL) NEG Urine Ketones (NEG) NEG Urine Nitrite (NEG) NEG Urine Bilirubin (NEG) NEG Urine Urobilinogen (0.1 - 1.0 EU/dl) 1.0 Ur Leukocyte Esterase (NEG) NEG Ur Microscopic EXAM NOT REQUIRED Urine Hemoglobin (NEG) NEG Urine Glucose (N MG/DL) NEG Diagnostic Data EKG Results 04/30/2017: Sinus rhythm, LAFB, RBBB, and nondiagnostic lateral ST-T wave abnormalities. [place] more leftward when compared to previous tracing. CXR Results 04/30/2017: No acute cardiopulmonary process. Other Results CT abdomen/pelvis 04/30/2017: 1. Cholelithiasis. Edema around the gallbladder raising concern for an acute cholecystitis. No bile duct dilatation. 2. Interstitial lung disease. Assessment/Plan Assessment/Plan [id number] w/ hx Alzheimer's dementia, ILD, HTN, HLD, pre-DM, carotid artery disease (mild by carotid ultrasound 10/06/2015), CAD (s/p CABG x4 09/26/2001 w/ NEGRON to LAD and SVGs to the Dx of LAD, M1 of LCx, and distal RCA; last pharmacologic stress test 07/2008 negative for ischemia), conduction disease ( chronic RBBB), and valvular heart disease (severe range aortic stenosis by echocardiogram 10/13/2015 that also revealed moderate LVH with impaired relaxation and preserved EF 65-70%), who presented to the ED from his assisted living facility with abdominal pain and exam revealing distended abdomen, absent bowel sounds, etc. and CT of the abdomen/pelvis revealing cholelithiasis and the suspicion of cholecystitis w/ elevated temperature, WBC's , etc. The fact that Mr. Daniel has severe range aortic stenosis places him in a higher risk surgical category, however, he was deemed a non-TAVR candidate in 2016. Mr. Daniel also clearly needs to have a laparoscopic cholecystectomy. Just discussed his higher than usual cardiac risk, given his severe aortic stenosis, with his daughter (Lynette Daniel) and she understands the risks and finds them acceptable. Also left a message on his other daughter's answering machine (Allyson Evans) and will discuss his status with her also. As such, would proceed with planned laparoscopic cholecystectomy. Obtain echocardiogram preoperatively to reassess , LV function, etc. Would place in ICU for close monitoring postoperatively. Further recommendations will follow. Thank you. Consult Acknowledgment - Thank you for your consult request.
--- NOTE | 2017-05-01 18:03 | Operative Report ---
Operative/Inv Procedure Report Surgery Date: 05/01/17 Name of Procedure: Laparoscopic cholecystectomy Pre-Operative Diagnosis: Acute cholecystitis Post-Operative Diagnosis: Same Estimated Blood Loss: 50ml to 100ml Surgeon/Chair Mechanic: Alfonzo MCMILLAN,Vasquez Quispe/Chantell UNDERWOOD Anesthesia: general endotracheal tube Drains: 15 American SARAH Specimens: Gallbladder Operative Indication: 87-year-old male with severe aortic stenosis and early dementia presents with acute cholecystitis. 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 Operative/Procedure Note Note: After informed consent patient is brought to the operating room and laid supine. General anesthesia was obtained and his abdomen was prepped and draped. The skin above the umbilicus infiltrated with local anesthesia and a curvilinear incision made sharply. We came down through the subcutaneous tissues bluntly and grasped the fascia with [place]'s. A fasciotomy was created sharply and stay sutures placed. The peritoneum was entered sharply and a blunt Cazares port was placed. Pneumoperitoneum was achieved. 3, 5 mm ports were placed in the epigastrium and right upper quadrant after local anesthesia was instilled and under direct vision the camera. he's placed in reverse Trendelenburg and rotated towards the left. The gallbladder is identified. It was hemorrhagic within the wall and markedly inflamed. It was grasped at the dome and retracted towards the head. In doing so the gallbladder ruptured. The bile was suction irrigated. Infundibulum was then grasped. Adhesions to the undersurface were taken down with blunt and cautery dissection. We dissected both sides the triangle Calot peritoneal tissue with cautery. The artery was medial and its normal anatomic position. The dissection was difficult due to active oozing at every cautery site dissection. This caused cumulative blood loss from diffuse areas of oozing. The artery was cauterized medially to allow it to be mobilized away from the duct. Farley was cleared of areolar tissue with cautery and blunt dissection. The arteries and duct were doubly ligated with clips. Gallbladder is removed from the fossa electrocautery. It was placed in Endo Catch bag and cinched up. Right upper quadrant was and suction irrigated normal saline. Hemostasis achieved with cautery. A 15 American Iván-Rahman round drain was placed in the lateral port site and into the infrahepatic space. It was sutured to the skin with 2-0 nylon. The ports were then removed and the gallbladder delivered and passed off the field. The fascia was closed with 0 Vicryl suture. Skin incisions closed with 4-0 Vicryl. Steri-Strips and sterile dressing applied. Sponge and needle counts are correct. Findings: Severe acute cholecystitis CC: Luis MCMILLAN,Felipe Tavarez; Garret MCMILLAN,Obinna Kennedy
--- NOTE | 2017-05-01 20:46 | Cons- CRCU ---
General Information and HPI Allergies/Medications Allergies: Coded Allergies: Antihistamines - Alkylamine (UNKNOWN 04/30/17) Home Med List: Acetaminophen (Pain Reliever) 500 MG CAPSULE 2 TAB PO BID PRN PAIN (Reported) Aspirin (Ecotrin*) 81 MG TABLET.DR 1 TAB PO DAILY HEART/BLOOD (Reported) Atorvastatin Calcium (Lipitor) 20 MG TABLET 1 TAB PO DAILY CHOLESTEROL ( Reported) Clonidine HCl 0.1 MG TABLET 1 TAB PO DAILY HTN (Reported) Cyanocobalamin (Vitamin B-12) 1,000 MCG TABLET 1 TAB PO DAILY SUPPLEMENT ( Reported) Finasteride 5 MG TABLET 1 TAB PO DAILY PROSTATE (Reported) Folic Acid 1 MG TABLET 1 TAB PO DAILY SUPPLEMENT (Reported) Furosemide (Lasix) 40 MG TABLET 1 TAB PO EOD DIURETIC (Reported) Memantine HCl (Namenda) 10 MG TABLET 1 TAB PO BID MEMORY (Reported) Metoprolol Tartrate 25 MG TABLET 1 TAB PO BID HTN (Reported) Nystatin (Nyamyc) 100,000 UNIT/GRAM POWDER 1 [place] TOP AD PRN UNKNOWN (Reported ) Omeprazole 40 MG CAPSULE.DR 1 CAP PO DAILY GI (Reported) Polyethylene Glycol 3350 (Miralax) 17 GRAM POWD.PACK 1 PAC PO DAILY PRN GI ( Reported) dissolve in water Potassium Chloride (K-Tab ER) 10 MEQ TABLET.ER 1 TAB PO DAILY SUPPLEMENT ( Reported) Selenium Sulfide 2.5 % SHAMPOO 1 [place] TOP BID ABD & LEGS (Reported) Sennosides (Senna) 8.6 MG TABLET 1 TAB PO Monday GI (Reported) Tamsulosin HCl (Flomax) 0.4 MG CAP.ER.24H 1 CAP PO DAILY BPH (Reported) Trazodone HCl 50 MG TABLET 1 TAB PO BID UNKNOWN (Reported) Triamcinolone Acetonide 0.1 % OINT...G. 1 [place] TOP AD PRN ABD & LEGS (Reported ) apply to affected area(s) Triamcinolone Acetonide 0.1 % OINT...G. 1 [place] TOP BID dermatis apply to affected area(s) Review of Systems Review of Systems Constitutional: Reports: see HPI. 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 Relation not specified for: FH: leukemia Psychosocial History Services at Home: Home Health Aide Smoking Status: Unknown If Ever Smoked Assessment/Plan Consult Acknowledgment - Thank you for your consult request. Sodium Chloride 100 ML Ampicillin Sodium/ 3,000 MG Q6 05/01 0600 DC 05/01 Sulbactam Sodium IV 1229 Sodium Chloride 100 ML Ampicillin Sodium/ 3,000 MG ONCE ONE 05/01 0130 DC 05/01 Sulbactam Sodium IV 05/01 0159 0125 Sodium Chloride 100 ML Dextrose/Lactated 1,000 ML Q10H 05/01 1900 AC 05/01 Ringer's IV 2014 Dextrose/Sodium 1,000 ML .Q8H 05/01 024 DC 05/01 Chloride IV 1205 Finasteride 5 MG DAILY 05/01 190 AC PO Heparin Sodium 5,000 UNIT Q8 05/01 2200 AC (Porcine) SC Heparin Sodium 0 .STK-MED ONE 05/01 0611 DC (Porcine) .ROUTE Heparin Sodium 5,000 UNIT Q8 05/01 06 DC 05/01 (Porcine) SC 0620 Memantine 10 MG BID 05/01 2199 AC PO Metoprolol Tartrate 25 MG BID 05/01 220 AC PO Metoprolol Tartrate 0 .STK-MED ONE 05/01 0959 DC PO Metoprolol Tartrate 25 MG BID 05/01 0241 DC 05/01 PO 1006 Morphine Sulfate 2 MG Q2P PRN 05/01 1900 AC IV Morphine Sulfate 0 .STK-MED ONE 05/01 0928 DC .ROUTE Morphine Sulfate 2 MG ONCE ONE 05/01 914 DC 05/01 IV 05/01 915 0930 Morphine Sulfate 0 .STK-MED ONE 05/01 0732 DC .ROUTE Morphine Sulfate 0 .STK-MED ONE 05/01 0307 DC .ROUTE Morphine Sulfate 2 MG Q2P PRN 05/01 0245 DC 05/01 IV 0734 Omeprazole 40 MG DAILY AC 05/02 0700 AC PO Ondansetron HCl 4 MG Q6P PRN 05/01 1900 AC IV Ondansetron HCl 0 .STK-MED ONE 05/01 0928 DC .ROUTE Ondansetron HCl 4 MG Q8P PRN 05/01 0245 DC 05/01 IV 0930 Oxycodone HCl 5 MG Q4 HRS NEEDED PRN 05/01 1900 AC PO Oxycodone HCl 10 MG Q4 HRS NEEDED PRN 05/01 1900 AC PO Pantoprazole Sodium 40 MG DAILY 05/01 1000 DC 05/01 IV 1005 Pantoprazole Sodium 0 .STK-MED ONE 05/01 1000 DC IV Sodium Chloride 2 SPRAY Q4P PRN 05/01 1900 AC MARIANA Sodium Chloride 2 SPRAY Q4P PRN 05/01 0245 DC 05/01 MARIANA 0315 Sodium Chloride 1,000 ML BOLUS ONE 05/01 0015 DC 05/01 IV 05/01 0114 0015 Tamsulosin HCl 0.4 MG DAILY 05/01 1909 AC PO Triamcinolone 1 [place] BID 05/01 220 AC Acetonide TOP Triamcinolone 1 [place] BID 05/01 1000 DC Acetonide TOP Review of Systems Review of Systems Constitutional: Reports: see HPI. 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 Relation not specified for: FH: leukemia Psychosocial History Services at Home: Home Health Aide Smoking Status: Unknown If Ever Smoked Exam & Diagnostic Data Last 24 Hrs of Vital Signs/I&O Vital Signs Date Time Temp Pulse Resp B/P B/P Pulse O2 O2 Flow FiO2 Mean Ox Delivery Rate 05/01 1123 99.4 99 18 130/72 91 Room Air 05/01 1010 100.2 100 18 140/74 98 05/01 1006 100 18 140/74 05/01 0834 98.3 84 22 170/88 93 05/01 0603 95 Room Air 05/01 0603 97.7 71 18 157/82 95 Room Air 05/01 0316 98.1 75 18 188/81 95 Room Air 05/01 0315 98.1 75 18 188/81 02 0102 97.6 85 20 172/81 96 Room Air 04/30 2356 95 Room Air 04/30 2302 97.9 81 22 146/67 95 Room Air Intake & Output 05/01 1600 02 0800 02 0000 Intake Total 500 1000 Output Total 700 Balance 500 300 Intake, IV 500 1000 Output, Urine 700 Patient 200 lb 200 lb Weight Weight Reported by Patient Measurement Method Physical Exam General Appearance: well developed/nourished, Drowsy Head: atraumatic, normal appearance Eyes: Bilateral: PERRL. Ears, Nose, Throat: normal pharynx, Dry bucal mucosa Neck: normal inspection, supple, No carotid bruit Respiratory: normal breath sounds, chest non-tender, no respiratory distress, lungs clear Cardiovascular: regular rate/rhythm, Aortic stenosis murmur Gastrointestinal: normal bowel sounds, soft, non-tender, Abdomen distended with pneumoperitoneum-post op Extremities: no edema Neurologic/Psych: Drowsy, No facial asymmetry Cranial Nerves: normal speech, No tongue deviation Skin: intact, normal color Last 48 Hrs of Labs/Mark: Laboratory Tests 05/01/17 0618: CBC w Diff NO MAN DIFF REQ, RBC 4.90, MCV 88.8, MCH 30.5, MCHC 34.4, RDW 13.6, MPV 8.6, Gran % 79.7 H, Lymphocytes % 13.8 L, Monocytes % 5.6, Eosinophils % 0.4, Basophils % 0.5, Absolute Granulocytes 9.1 H, Absolute Lymphocytes 1.6, Absolute Monocytes 0.6, Absolute Eosinophils 0, Absolute Basophils 0.1 05/01/17 0330: Total Bilirubin 1.1, Direct Bilirubin 0.2, AST 23, ALT 34, Alkaline Phosphatase 145 H, Total Protein 6.9, Albumin 3.8 05/01/17 0230: Lactic Acid 1.6 04/30/17 2355: Urine Color YEL, Urine Clarity CLEAR, Urine pH 6.0, Ur Specific Prue 1.020, Urine Protein NEG, Urine Ketones NEG, Urine Nitrite NEG, Urine Bilirubin NEG, Urine Urobilinogen 1.0, Ur Leukocyte Esterase NEG, Ur Microscopic EXAM NOT REQUIRED, Urine Hemoglobin NEG, Urine Glucose NEG 04/30/17 2320: Anion Gap 15, Estimated GFR > 60, BUN/Creatinine Ratio 18.9, Glucose 256 H, Lactic Acid 2.9 H, Calcium 8.7, Total Bilirubin 1.1, AST 20, ALT 28, Alkaline Phosphatase 132 H, Troponin I < 0.01, Total Protein 6.9, Albumin 3.9, Globulin 3.0, Albumin/Globulin Ratio 1.3, Lipase 39, CBC w Diff NO MAN DIFF REQ, RBC 4.70 , MCV 88.5, MCH 30.2, MCHC 34.1, RDW 13.6, MPV 8.5, Gran % 78.7 H, Lymphocytes % 15.5 L, Monocytes % 4.8, Eosinophils % 0.6, Basophils % 0.4, Absolute Granulocytes 8.6 H, Absolute Lymphocytes 1.7, Absolute Monocytes 0.5, Absolute Eosinophils 0.1, Absolute Basophils 0 Microbiology 04/30 2321 NASOPHARYN: Influenza Virus A & B Rapid Smear - COMP Diagnostic Data EKG Results Preoperative EKG. 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 Heart rate 79 bpm. Assessment/Plan Consult Acknowledgment - Thank you for your consult request.
--- NOTE | 2017-05-01 21:22 | Cons- Medical ---
Cathryn Pedroza MD 05/01/172058: General Information and HPI Consulting Request Date of Consult: 05/01/17 Requested By: Alfonzo MCMILLAN,Vasquez Quispe Reason for Consult: Post-op ICU monitoring and aortic stenosis Source of Information: old records Exam Limitations: unable to give history, dementia History of Present Illness: The patient is an 87 year-old male with a history of dementia, hypertension, carotid artery occlusion, coronary artery disease s/p quadruple bypass, hyperlipidemia, right bundle branch block, aortic stenosis, diverticulosis, benign prostate hyperplasia and a history of urinary retention who was brought in by EMS from assisted living home yesterday with acute onset of abdominal pain of a few hours duration. The pain was located in the right upper quadrant and was intermittent with radiation around to his back with no relation to meals. He had no fever but complained of lethargy and a stuffy nose. There was no associated nausea, vomiting or diarrhea. He had no chest pains or shortness of breath. In the ER he was afebrile with a temperature of 97.9, pulse was 81 beats per minutes and respiratory rate was 22/m. His blood pressure was 146/67 mmHg. He was satting 95% on room air. He had an elevated white count 10.9 and lactic acid was elevated at 2.9 which subsequently trended down to 1.6. He later developed a low-grade fever to 100 [address] this morning[address] A CT scan showed evidence of cholelithiasis and acute cholecystitis the patient was evaluated by general surgeon Dr. Mejía and had laparoscopic cholecystectomy after he was cleared by dock superintendent Dr. Smith. Intraoperatively he received 400 mL of IV D5 normal saline with additional 600 cc received in the PACU. Intraoperative blood loss was 50-100 mL. At present he is drowsy but has no complaints. His SARAH tube in situ in right upper quadrant of abdomen is draining 75 mL of serosanguineous fluid. Allergies/Medications Allergies: Coded Allergies: Antihistamines - Alkylamine (UNKNOWN 04/30/17) Home Med List: Acetaminophen (Pain Reliever) 500 MG CAPSULE 2 TAB PO BID PRN PAIN (Reported) Aspirin (Ecotrin*) 81 MG TABLET.DR 1 TAB PO DAILY HEART/BLOOD (Reported) Atorvastatin Calcium (Lipitor) 20 MG TABLET 1 TAB PO DAILY CHOLESTEROL ( Reported) Clonidine HCl 0.1 MG TABLET 1 TAB PO DAILY HTN (Reported) Cyanocobalamin (Vitamin B-12) 1,000 MCG TABLET 1 TAB PO DAILY SUPPLEMENT ( Reported) Finasteride 5 MG TABLET 1 TAB PO DAILY PROSTATE (Reported) Folic Acid 1 MG TABLET 1 TAB PO DAILY SUPPLEMENT (Reported) Furosemide (Lasix) 40 MG TABLET 1 TAB PO EOD DIURETIC (Reported) Memantine HCl (Namenda) 10 MG TABLET 1 TAB PO BID MEMORY (Reported) Metoprolol Tartrate 25 MG TABLET 1 TAB PO BID HTN (Reported) Nystatin (Nyamyc) 100,000 UNIT/GRAM POWDER 1 [place] TOP AD PRN UNKNOWN (Reported ) Omeprazole 40 MG CAPSULE.DR 1 CAP PO DAILY GI (Reported) Polyethylene Glycol 3350 (Miralax) 17 GRAM POWD.PACK 1 PAC PO DAILY PRN GI ( Reported) dissolve in water Potassium Chloride (K-Tab ER) 10 MEQ TABLET.ER 1 TAB PO DAILY SUPPLEMENT ( Reported) Selenium Sulfide 2.5 % SHAMPOO 1 [place] TOP BID ABD & LEGS (Reported) Sennosides (Senna) 8.6 MG TABLET 1 TAB PO Monday GI (Reported) Tamsulosin HCl (Flomax) 0.4 MG CAP.ER.24H 1 CAP PO DAILY BPH (Reported) Trazodone HCl 50 MG TABLET 1 TAB PO BID UNKNOWN (Reported) Triamcinolone Acetonide 0.1 % OINT...G. 1 FALLON TOP AD PRN ABD & LEGS (Reported ) apply to affected area(s) Triamcinolone Acetonide 0.1 % OINT...G. 1 FALLON TOP BID dermatis apply to affected area(s) Current Medications: Current Medications Sig/Supa Start time Last Medication Dose Route Stop Time Status Admin Acetaminophen 1,000 MG Q6P PRN 05/01 1900 AC N/A 1 UNIT IV Acetaminophen 1,000 MG Q6P PRN 05/01 0245 DC N/A 1 UNIT IV Ampicillin Sodium/ 1,500 MG Q6 05/01 2359 AC Sulbactam Sodium IV 05/02 0629 Sodium Chloride 100 ML Ampicillin Sodium/ 3,000 MG Q6 05/01 0600 DC 05/01 Sulbactam Sodium IV 1229 Sodium Chloride 100 ML Ampicillin Sodium/ 3,000 MG ONCE ONE 05/01 0130 DC 05/01 Sulbactam Sodium IV 05/01 0159 0125 Sodium Chloride 100 ML Dextrose/Lactated 1,000 ML Q10H 05/01 1900 AC 05/01 Ringer's IV 2014 Dextrose/Sodium 1,000 ML .Q8H 05/01 024 DC 05/01 Chloride IV 1205 Finasteride 5 MG DAILY 05/01 1906 AC PO Heparin Sodium 5,000 UNIT Q8 05/01 220 AC (Porcine) SC Heparin Sodium 0 .STK-MED ONE 05/01 0611 DC (Porcine) .ROUTE Heparin Sodium 5,000 UNIT Q8 05/01 06 DC 05/01 (Porcine) SC 0620 Memantine 10 MG BID 05/01 2199 AC PO Metoprolol Tartrate 25 MG BID 05/01 2199 AC PO Metoprolol Tartrate 0 .STK-MED ONE 05/01 0959 DC PO Metoprolol Tartrate 25 MG BID 05/01 024 DC 05/01 PO 1006 Morphine Sulfate 2 MG Q2P PRN 05/01 190 AC IV Morphine Sulfate 0 .STK-MED ONE 05/01 927 DC .ROUTE Morphine Sulfate 2 MG ONCE ONE 05/01 0915 DC 05/01 IV 05/01 0916 0930 Morphine Sulfate 0 .STK-MED ONE 05/01 0732 DC .ROUTE Morphine Sulfate 0 .STK-MED ONE 05/01 0307 DC .ROUTE Morphine Sulfate 2 MG Q2P PRN 05/01 024 DC 05/01 IV 0734 Nystatin 1 FALLON BID 05/01 2199 UNVr TOP Omeprazole 40 MG DAILY AC 05/02 0700 AC PO Ondansetron HCl 4 MG Q6P PRN 05/01 190 AC IV Ondansetron HCl 0 .STK-MED ONE 05/01 927 DC .ROUTE Ondansetron HCl 4 MG Q8P PRN 05/01 0245 DC 05/01 IV 0930 Oxycodone HCl 5 MG Q4 HRS NEEDED PRN 05/01 1900 AC PO Oxycodone HCl 10 MG Q4 HRS NEEDED PRN 05/01 190 AC PO Pantoprazole Sodium 40 MG DAILY 05/01 1000 DC 05/01 IV 1005 Pantoprazole Sodium 0 .STK-MED ONE 05/01 1000 DC IV Sodium Chloride 2 SPRAY Q4P PRN 05/01 190 AC MARIANA Sodium Chloride 2 SPRAY Q4P PRN 05/01 0245 DC 05/01 MARIANA 0315 Sodium Chloride 1,000 ML BOLUS ONE 05/01 0015 DC 05/01 IV 05/01 0114 0015 Tamsulosin HCl 0.4 MG DAILY 05/01 1909 AC PO Triamcinolone 1 FALLON BID 05/01 2199 AC Acetonide TOP Triamcinolone 1 FALLON BID 05/01 1000 DC Acetonide TOP Review of Systems Review of Systems Constitutional: Reports: see HPI. Past History Travel History Traveled to [place] past 21 day No Medical History Blood Transfusion Hx: Yes Neurological: Alzheimer's disease EENT: NONE Cardiovascular: aortic stenosis, CAD, hypertension, hyperlipidemia, QUAD BYPASS 70% CAROTID ARTERY OCCLUS CHRONIC EDEMA RBBB Respiratory: NONE Gastrointestinal: diverticulosis Hepatic: NONE Renal: benign prost hyperplasia, URINARY RETENTION Musculoskeletal: NONE Psychiatric: NONE Endocrine: obesity, pre-DM Blood Disorders: vasculitis BACTEREMIA PVD Cancer(s): NONE HELP DESK ASSOCIATE/Reproductive: NONE Surgical History Surgical History: CABG ( 10 YRS AGO), QUAD BYPASS Family History Relations & Conditions If Any: SON, , Age 30-40. Relation not specified for: FH: leukemia Psychosocial History Services at Home: Home Health Aide Smoking Status: Unknown If Ever Smoked Exam & Diagnostic Data Last 24 Hrs of Vital Signs/I&O Vital Signs Date Time Temp Pulse Resp B/P B/P Pulse O2 O2 Flow FiO2 Mean Ox Delivery Rate 05/01 1945 95 Nasal 2.0L Cannula 05/01 1123 99.4 99 18 130/72 91 Room Air 05/01 1010 100.2 100 18 140/74 98 05/01 1006 100 18 140/74 05/01 0834 98.3 84 22 170/88 93 05/01 0603 95 Room Air 05/01 0603 97.7 71 18 157/82 95 Room Air 05/01 0316 98.1 75 18 188/81 95 Room Air 05/01 0315 98.1 75 18 188/81 05/01 0102 97.6 85 20 172/81 96 Room Air 04/30 2356 95 Room Air 04/30 2302 97.9 81 22 146/67 95 Room Air Intake & Output 05/01 1600 05/01 0800 02/ 0000 Intake Total 500 1000 Output Total 700 Balance 500 300 Intake, IV 500 1000 Output, Urine 700 Patient 200 lb 200 lb Weight Weight Reported by Patient Measurement Method Physical Exam General Appearance: well developed/nourished, Drowsy Head: atraumatic, normal appearance Eyes: Bilateral: PERRL, EOMI. Ears, Nose, Throat: normal pharynx, Dry mucus membranes Neck: normal inspection, supple, No carotid bruit Respiratory: normal breath sounds, chest non-tender, no respiratory distress, lungs clear Cardiovascular: regular rate/rhythm, Aortic stenosis murmur Gastrointestinal: normal bowel sounds, soft, non-tender, Distended from postop pneumoperitoneum Extremities: normal inspection, no edema Neurologic/Psych: equipment superintendent II-XII nml as tested, Drowsy Cranial Nerves: normal speech, PERRL, No facial assymetry Last 24 Hrs of Labs/Mark: Laboratory Tests 05/01/17 0618: CBC w Diff NO MAN DIFF REQ, RBC 4.90, MCV 88.8, MCH 30.5, MCHC 34.4, RDW 13.6, MPV 8.6, Gran % 79.7 H, Lymphocytes % 13.8 L, Monocytes % 5.6, Eosinophils % 0.4, Basophils % 0.5, Absolute Granulocytes 9.1 H, Absolute Lymphocytes 1.6, Absolute Monocytes 0.6, Absolute Eosinophils 0, Absolute Basophils 0.1 05/01/17 0330: Total Bilirubin 1.1, Direct Bilirubin 0.2, AST 23, ALT 34, Alkaline Phosphatase 145 H, Total Protein 6.9, Albumin 3.8 05/01/17 0230: Lactic Acid 1.6 04/30/17 2355: Urine Color YEL, Urine Clarity CLEAR, Urine pH 6.0, Ur Specific [place] 1.020, Urine Protein NEG, Urine Ketones NEG, Urine Nitrite NEG, Urine Bilirubin NEG, Urine Urobilinogen 1.0, Ur Leukocyte Esterase NEG, Ur Microscopic EXAM NOT REQUIRED, Urine Hemoglobin NEG, Urine Glucose NEG 04/30/17 2320: Anion Gap 15, Estimated GFR > 60, BUN/Creatinine Ratio 18.9, Glucose 256 H, Lactic Acid 2.9 H, Calcium 8.7, Total Bilirubin 1.1, AST 20, ALT 28, Alkaline Phosphatase 132 H, Troponin I < 0.01, Total Protein 6.9, Albumin 3.9, Globulin 3.0, Albumin/Globulin Ratio 1.3, Lipase 39, CBC w Diff NO MAN DIFF REQ, RBC 4.70 , MCV 88.5, MCH 30.2, MCHC 34.1, RDW 13.6, MPV 8.5, Gran % 78.7 H, Lymphocytes % 15.5 L, Monocytes % 4.8, Eosinophils % 0.6, Basophils % 0.4, Absolute Granulocytes 8.6 H, Absolute Lymphocytes 1.7, Absolute Monocytes 0.5, Absolute Eosinophils 0.1, Absolute Basophils 0 Microbiology 04/30 2322 NASOPHARYN: Influenza Virus A & B Rapid Smear - COMP Diagnostic Data EKG Results Preoperative EKG 04/30/17. 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 Heart rate 79 bpm. CXR Results IMPRESSION: No acute disease. Other Results CT abdomen and pelvis IMPRESSION: 1. Cholelithiasis. Edema around the gallbladder raising concern for an acute cholecystitis. No bile duct dilatation. 2. Interstitial lung disease. Assessment/Plan Assessment/Plan The patient is an 87 year-old male with a history of dementia, hypertension, carotid artery occlusion, coronary artery disease s/p quadruple bypass, hyperlipidemia, right bundle branch block, aortic stenosis, diverticulosis, benign prostate hyperplasia and a history of urinary retention who was brought in by EMS from assisted living home yesterday with acute onset of abdominal pain of a few hours duration with CT abdomen findings suggesting cholelithiasis and acute cholecystitis. He is status post laparoscopic cholecystectomy today. He is currently drowsy but without complaints. Problem list 1. Status post laparoscopic cholecystectomy 2. Severe aortic stenosis 3. History of coronary artery disease status post bypass 4. History of hypertension 5. Dementia 6. BPH Recommendations 1. Status post laparoscopic cholecystectomy * Postoperative management as per surgical team * Oxygen by nasal cannula to keep O2 saturations greater than 95% * Monitor blood pressure and vital signs closely * Pass almaraz catheter and monitor fluid input and output closely * As patient appeared dry and has borderline blood pressure of 95/65 mmhg would bolus 500 mL of normal saline once and then reassess * Can reduce IV D5 Ringer's lactat to maintainance rate of 75 mL/hr if blood pressure improves after normal saline bolus * Continue IV Unasyn 1.5 g every 6 hours * IV morphine 2 mg every 2 hours when necessary for pain 2. Severe aortic stenosis * Follow-up Echocardiogram report ([facility] echocardiogram from June 2016 showed normal EF of 60% with abnormal relaxation of the left ventricle and severe aortic stenosis) * Hold by mouth metoprolol 25 mg twice a day on account of borderline blood pressure * Home medication of Lasix 40 mg every 48 hours held postoperatively. Would recommence once patient is stable hemodynamically * Follow-up cardiology recommendations 3. History of coronary artery disease status post bypass * Aspirin currently held postoperatively. Would resume aspirin when patient is cleared by general surgery * Hold by mouth metoprolol for now on account of borderline blood pressure * Continue atorvastatin 20 mg daily 4. Hypertension * Hold by mouth metoprolol for now on account of borderline blood pressure * Monitor blood pressure closely 5. Dementia * Continue medication of Namenda 10 mg by mouth twice a day 6. BPH * Hold tamsulosin 0.4 mg daily on account of borderline BP * Continue finasteride 5 mg daily DVT prophylaxis with Alps Patient is full code Problem List: 1. Acute cholecystitis 2. Severe aortic stenosis Copies To: Luis MCMILLAN,Felipe Tavarez; Alfonzo MCMILLAN,Vasquez Quispe Consult Acknowledgment - Thank you for your consult request. Nikhil Castillo 05/02/17 0702: Assessment/Plan Consult Acknowledgment - Thank you for your consult request. Attending MD Review Statement Attending Statement Attending MD Statement: examined this patient, discuss w/resident/PA/SALES PROPERTY MANAGER, agreed w/resident/PA/SALES PROPERTY MANAGER, reviewed EMR data (avail), reviewed images, amended to note Attending Assessment/Plan: Cc: Medical comanagement PMH: HTN, CAD S/P CABG, HLD, BPH, Alzheimer's dementia, severe aortic stenosis Patient was admitted for back pain, abdominal pain and increased lethargy, was found to have cholecystitis, underwent cholecystectomy on May 01, SARAH drain in place. Patient was mildly hypotensive postoperative, received 500 mL normal saline. Patient was started on 125 mL per hour maintenance fluid. Currently patient's blood pressure appears stable, no significant tachycardia. Given his history of severe aortic stenosis, suggest to decrease the flow to 75. Continue close vitals monitoring, hold off diuretics, hold off antihypertensives, resume medications from tomorrow if hemodynamically stable. Patient has significant dementia, does not provide any details . Examination unremarkable except blood through urethra. Almaraz catheter was tried to placed in ICU which was traumatic and a lot of clots and fresh blood came out in the catheter and it was blocked. Catheter was removed and triple lumen was placed, urology was called who suggested to continue irrigation.
--- NOTE | 2017-05-01 21:37 | PN- General Surgery ---
Subjective Subjective: POC in ICU, sleepy. some moaning with palpation of abdomen. no void postop. Objective Vital Signs and I&Os Vital Signs Date Time Temp Pulse Resp B/P B/P Pulse O2 O2 Flow FiO2 Mean Ox Delivery Rate 05/01 1945 95 Nasal 2.0L Cannula 05/01 1123 99.4 99 18 130/72 91 Room Air 05/01 1010 100.2 100 18 140/74 98 05/01 1006 100 18 140/74 05/01 0834 98.3 84 22 170/88 93 / 0603 95 Room Air 05/01 0603 97.7 71 18 157/82 95 Room Air 05/01 0316 98.1 75 18 188/81 95 Room Air 05/01 0315 98.1 75 18 188/81 05/01 0102 97.6 85 20 172/81 96 Room Air 04/30 2356 95 Room Air 04/30 2302 97.9 81 22 146/67 95 Room Air Intake & Output 05/01 1600 05/01 0800 05/01 0000 04/30 1600 04/30 0800 04/30 0000 Intake Total 500 1000 Output Total 700 Balance 500 300 Intake, IV 500 1000 Output, Urine 700 Patient 200 lb 200 lb Weight Weight Reported by Patient Measurement Method Physical Exam: gen- nad card- s1s2 rrr +murmur pulm- ctab abd- softly dist, tympanic, ttp thoughout, incisions dressed- cdi, nick w serosang drainage ext- calves soft nt, alps on bl Current Medications: Current Medications Sig/Supa Start time Last Medication Dose Route Stop Time Status Admin Acetaminophen 1,000 MG Q6P PRN 05/01 1900 AC N/A 1 UNIT IV Acetaminophen 1,000 MG Q6P PRN 05/01 0245 DC N/A 1 UNIT IV Ampicillin Sodium/ 1,500 MG Q6 05/01 2359 AC Sulbactam Sodium IV 05/02 0629 Sodium Chloride 100 ML Ampicillin Sodium/ 3,000 MG Q6 05/01 0600 DC 05/01 Sulbactam Sodium IV 1229 Sodium Chloride 100 ML Ampicillin Sodium/ 3,000 MG ONCE ONE 05/01 0130 DC 05/01 Sulbactam Sodium IV 05/01 0159 0125 Sodium Chloride 100 ML Dextrose/Lactated 1,000 ML Q10H 05/01 1900 r 05/01 Ringer's IV 2014 Dextrose/Sodium 1,000 ML .Q8H 05/01 024 DC 05/01 Chloride IV 1205 Finasteride 5 MG DAILY 05/01 1906 AC 05/01 PO 214 Heparin Sodium 5,000 UNIT Q8 05/01 2199 AC 05/01 (Porcine) SC 2141 Heparin Sodium 0 .STK-MED ONE 05/01 0611 DC (Porcine) .ROUTE Heparin Sodium 5,000 UNIT Q8 05/01 06 DC 05/01 (Porcine) SC 0620 Memantine 10 MG BID 05/01 2199 AC 05/01 PO 214 Metoprolol Tartrate 25 MG BID 05/01 2199 AC PO Metoprolol Tartrate 0 .STK-MED ONE 05/01 0959 DC PO Metoprolol Tartrate 25 MG BID 05/01 240 DC 05/01 PO 1006 Morphine Sulfate 2 MG Q2P PRN 05/01 190 AC IV Morphine Sulfate 0 .STK-MED ONE 05/01 0928 DC .ROUTE Morphine Sulfate 2 MG ONCE ONE 05/01 0915 DC 05/01 IV 05/01 0916 0930 Morphine Sulfate 0 .STK-MED ONE 05/01 0732 DC .ROUTE Morphine Sulfate 0 .STK-MED ONE 05/01 0307 DC .ROUTE Morphine Sulfate 2 MG Q2P PRN 05/01 0245 DC 05/01 IV 0734 Nystatin 1 [place] BID 05/01 2199 AC TOP Omeprazole 40 MG DAILY AC 05/02 0700 AC PO Ondansetron HCl 4 MG Q6P PRN 05/01 1900 AC IV Ondansetron HCl 0 .STK-MED ONE 05/01 0928 DC .ROUTE Ondansetron HCl 4 MG Q8P PRN 05/01 0245 DC 05/01 IV 0930 Oxycodone HCl 5 MG Q4 HRS NEEDED PRN 05/01 1900 AC PO Oxycodone HCl 10 MG Q4 HRS NEEDED PRN 05/01 1900 AC PO Pantoprazole Sodium 40 MG DAILY 05/01 1000 DC 05/01 IV 1005 Pantoprazole Sodium 0 .STK-MED ONE 05/01 1000 DC IV Sodium Chloride 500 ML BOLUS ONE 05/01 2200 UNVr IV 05/01 2259 Sodium Chloride 2 SPRAY Q4P PRN 05/01 1900 AC MARIANA Sodium Chloride 2 SPRAY Q4P PRN 05/01 0245 DC 05/01 MARIANA 0315 Sodium Chloride 1,000 ML BOLUS ONE 05/01 0015 DC 05/01 IV 05/01 0114 0015 Tamsulosin HCl 0.4 MG DAILY 05/01 1910 AC PO Triamcinolone 1 FALLON BID 05/010 AC 05/01 Acetonide TOP 2142 Triamcinolone 1 FALLON BID 05/01 1000 DC Acetonide TOP Assessment/Plan Assessment/Plan A- 87yoM POD0 sp laparoscopic cholecystectomy, in ICU for close postop monitoring due to Hx of se[place] , cad sp [id number], bph, htn and dementia, currently with SBP in 90s, likely due to hypovolemia P- ICU monitoring during postop period per cardiology clear liquids as tolerated IVF at 125, bolus 500cc now. place almaraz for i&os in critical care setting, watch uo unasyn x2 doses postop hep sq, alps nick to self suction oob as tolerated appreciate cardiology, critical care, medical input will skyler attending Core Measures Venous Thromboembolism VTE Risk Factors Age>40 No Mechanical VTE Prophylaxis d/t N/A MechProphylax Ordered No VTE Pharm Prophylaxis d/t NA PharmProphylax ordered
[2017-05-02] VITALS: BP 102/74
--- NOTE | 2017-05-02 04:18 | PN- General Surgery ---
Subjective Subjective: urinary difficulties overnight- almaraz inserted by RN without resistance at bedside for strict I&Os, hematuria noted in almaraz bag, followed by clots and absence of urine despite full bladder scan with pain per pt. CBI started after dw Dr. Hernandez, urine now clear yellow in bag without blood. some abd discomfort, but no cp/sob/f/c/n/v overnight. no oob, no bm, ?flatus Objective Vital Signs and I&Os Vital Signs Date Time Temp Pulse Resp B/P B/P Pulse O2 O2 Flow FiO2 Mean Ox Delivery Rate 05/02 0140 80 114/74 02/ 0000 97.0 86 16 102/74 95 Nasal 95% Cannula 05/02 0000 95 Nasal 2.0L Cannula 05/01 2142 80 90/54 05/01 1945 95 Nasal 2.0L Cannula 05/01 1123 99.4 99 18 130/72 91 Room Air 05/01 1010 100.2 100 18 140/74 98 02/ 1006 100 18 140/74 05/01 0834 98.3 84 22 170/88 93 / 0603 95 Room Air / 0603 97.7 71 18 157/82 95 Room Air Intake & Output 05/02 0800 02/ 0000 02/ 1600 /05 0800 02/ 0000 /04 1600 Intake Total 375 356 1597 Output Total 700 Balance 920 500 300 Intake, IV 259 750 9282 Intake, Oral 60 Output, Urine 700 Patient 200 lb 200 lb 200 lb Weight Weight Reported by Patient Reported by Patient Measurement Method Physical Exam: GEN- NAD CARD- S1S2 RRR + murmur PULM- CTAB ABD- obese, distended, +bs, nick w minimal serosang, ttp thoughout, worse alycia- incisional EXT- calves soft nt, alps on URO- CBi in place, clear yellow urine in bag (300+urine out) Current Medications: Current Medications Sig/Supa Start time Last Medication Dose Route Stop Time Status Admin Acetaminophen 1,000 MG Q6P PRN 05/01 1900 AC N/A 1 UNIT IV Acetaminophen 1,000 MG Q6P PRN 05/01 0245 DC N/A 1 UNIT IV Ampicillin Sodium/ 1,500 MG Q6 05/01 2359 DC Sulbactam Sodium IV 05/02 06 Sodium Chloride 100 ML Ampicillin Sodium/ 1,500 MG Q6 05/01 2359 AC 05/01 Sulbactam Sodium IV 05/02 06 2336 Sodium Chloride 50 ML Ampicillin Sodium/ 3,000 MG Q6 05/01 06 DC 05/01 Sulbactam Sodium IV 1229 Sodium Chloride 100 ML Dextrose/Lactated 1,000 ML Q10H 05/01 190 AC 05/01 Ringer's IV 2014 Dextrose/Sodium 1,000 ML .Q8H 05/01 0245 DC 05/01 Chloride IV 1205 Finasteride 5 MG DAILY 05/01 1906 AC 05/01 PO 2142 Heparin Sodium 5,000 UNIT Q8 05/01 2199 AC 05/01 (Porcine) SC 2141 Heparin Sodium 0 .STK-MED ONE 05/01 06 DC (Porcine) .ROUTE Heparin Sodium 5,000 UNIT Q8 05/01 599 DC 05/01 (Porcine) SC 0620 Hydromorphone HCl 2 MG .STK-MED ONE 05/01 1915 DC IM 05/01 191 Memantine 10 MG BID 05/01 2199 AC 05/01 PO 2142 Metoprolol Tartrate 25 MG BID 05/01 2199 AC PO Metoprolol Tartrate 0 .STK-MED ONE 05/01 0959 DC PO Metoprolol Tartrate 25 MG BID 05/01 024 DC 05/01 PO 1006 Morphine Sulfate 2 MG Q2P PRN 05/01 1899 AC IV Morphine Sulfate 0 .STK-MED ONE 05/01 927 DC .ROUTE Morphine Sulfate 2 MG ONCE ONE 05/01 914 DC 05/01 IV 05/01 0816 0930 Morphine Sulfate 0 .STK-MED ONE 05/01 0732 DC .ROUTE Morphine Sulfate 2 MG Q2P PRN 05/01 024 DC 05/01 IV 0734 Nystatin 1 [place]ALL[place] BID 05/01 2199 AC 05/01 TOP 2206 Omeprazole 40 MG DAILY AC 05/02 07 AC PO Ondansetron HCl 4 MG Q6P PRN 05/01 190 AC IV Ondansetron HCl 0 .STK-MED ONE 05/01 0828 DC .ROUTE Ondansetron HCl 4 MG Q8P PRN 05/01 0245 DC 05/01 IV 0930 Oxycodone HCl 5 MG Q4 HRS NEEDED PRN 05/01 190 AC PO Oxycodone HCl 10 MG Q4 HRS NEEDED PRN 05/01 1900 AC PO Pantoprazole Sodium 40 MG DAILY 05/01 1000 DC 05/01 IV 1005 Pantoprazole Sodium 0 .STK-MED ONE 05/01 1000 DC IV Sodium Chloride 500 ML BOLUS ONE 05/010 DC 05/01 IV 05/01 2259 2151 Sodium Chloride 2 SPRAY Q4P PRN 05/01 1900 AC MARIANA Sodium Chloride 2 SPRAY Q4P PRN 05/01 0245 DC 05/01 MARIANA 0315 Tamsulosin HCl 0.4 MG DAILY 05/01 1910 AC 05/02 PO 0140 Triamcinolone 1 FALL[place] BID 05/01 2199 AC 05/01 Acetonide TOP 2142 Triamcinolone 1 [place]ALL[place] BID 05/01 1000 DC Acetonide TOP Results Last 48 Hours of Labs: labs pending Assessment/Plan Assessment/Plan A- POD1 sp lap fidel for acute cholecystitis, in ICU for close postop monitoring due to severe aortic stenosis with cad sp cabg, htn, dementia, with CBI running due to hematuria with clots likely due to traumatic almraaz insertion in setting of BPH, now with clear yellow urine, stable. P- -IVF -NPO until evaluated by Dr. Hernandez. possible need for cysto, though hematuria seems to be resolved by CBI. cont CBI for now - clr liquids if no uro intervention needed - am labs - prn pain meds -unasyn [id number] postop -nick to self suction -strict I&Os- , postop -appreciate consultants input. ?out of icu later today - will dw attending Core Measures Venous Thromboembolism VTE Risk Factors Age>40 No Mechanical VTE Prophylaxis d/t N/A MechProphylax Ordered No VTE Pharm Prophylaxis d/t NA PharmProphylax ordered
[2017-05-02 05:31] LABS: ABSOLUTE BASOPHIL COUNT 0 /CUMM (0.0-0.2); ABSOLUTE EOSINOPHIL COUNT 0 /CUMM (0.0-0.7); ABSOLUTE GRANULOCYTE CT 12.6 /CUMM (1.4-6.5); ABSOLUTE LYMPH COUNT 1.1 /CUMM (1.2-3.4); ABSOLUTE MONOCYTE COUNT 0.6 /CUMM (0.10-0.60); BASOPHIL % 0 % (0.0-2.0); EOSINOPHIL % 0.2 % (0-5); HEMATOCRIT 41.7 % (42-52); MEAN CORPUSCULAR HGB 30.3 PG (27.0-31.0); MEAN CORPUSCULAR HGB CONC 33.8 G/DL (33.0-37.0); MEAN CORPUSCULAR VOLUME 89.7 FL (80.0-94.0); MEAN PLATELET VOLUME 8.9 FL (7.4-10.4); PLATELET COUNT 170 /CUMM (130-400); RBC DISTRIBUTION WIDTH 13.8 % (11.5-14.5); RED BLOOD CELL CT 4.65 /CUMM (4.70-6.10); WHITE BLOOD CELL COUNT 14.3 /CUMM (4.8-10.8)
[2017-05-02 05:55] LABS: GRANULOCYTE % 87.8 % (42.2-75.2)
--- NOTE | 2017-05-02 07:34 | Cons- CRCU ---
JuliaLala 05/02/17 0733: General Information and HPI Consulting Request Requested By: Alfonzo Ty Allergies/Medications Allergies: Coded Allergies: Antihistamines - Alkylamine (UNKNOWN 04/30/17) Home Med List: Acetaminophen (Pain Reliever) 500 MG CAPSULE 2 TAB PO BID PRN PAIN (Reported) Aspirin (Ecotrin*) 81 MG TABLET. 1 TAB PO DAILY HEART/BLOOD (Reported) Atorvastatin Calcium (Lipitor) 20 MG TABLET 1 TAB PO DAILY CHOLESTEROL ( Reported) Clonidine HCl 0.1 MG TABLET 1 TAB PO DAILY HTN (Reported) Cyanocobalamin (Vitamin B-12) 1,000 MCG TABLET 1 TAB PO DAILY SUPPLEMENT ( Reported) Finasteride 5 MG TABLET 1 TAB PO DAILY PROSTATE (Reported) Folic Acid 1 MG TABLET 1 TAB PO DAILY SUPPLEMENT (Reported) Furosemide (Lasix) 40 MG TABLET 1 TAB PO EOD DIURETIC (Reported) Memantine HCl (Namenda) 10 MG TABLET 1 TAB PO BID MEMORY (Reported) Metoprolol Tartrate 25 MG TABLET 1 TAB PO BID HTN (Reported) Nystatin (Nyamyc) 100,000 UNIT/GRAM POWDER 1 FALLON TOP AD PRN UNKNOWN (Reported ) Omeprazole 40 MG CAPSULE.DR 1 CAP PO DAILY GI (Reported) Polyethylene Glycol 3350 (Miralax) 17 GRAM POWD.PACK 1 PAC PO DAILY PRN GI ( Reported) dissolve in water Potassium Chloride (K-Tab ER) 10 MEQ TABLET.ER 1 TAB PO DAILY SUPPLEMENT ( Reported) Selenium Sulfide 2.5 % SHAMPOO 1 FALLON TOP BID ABD & LEGS (Reported) Sennosides (Senna) 8.6 MG TABLET 1 TAB PO Monday GI (Reported) Tamsulosin HCl (Flomax) 0.4 MG CAP.ER.24H 1 CAP PO DAILY BPH (Reported) Trazodone HCl 50 MG TABLET 1 TAB PO BID UNKNOWN (Reported) Triamcinolone Acetonide 0.1 % OINT...G. 1 FALLON TOP AD PRN ABD & LEGS (Reported ) apply to affected area(s) Triamcinolone Acetonide 0.1 % OINT...G. 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 Relation not specified for: FH: leukemia Psychosocial History Services at Home: Home Health Aide Smoking Status: Unknown If Ever Smoked Assessment/Plan Consult Acknowledgment - Thank you for your consult request. Matt Colvin 05/02/17 0838: Assessment/Plan Consult Acknowledgment - Thank you for your consult request.
--- NOTE | 2017-05-02 07:45 | Cons- Urology ---
General Information and HPI Consulting Request Date of Consult: 05/02/17 Requested By: Alfonzo MCMILLAN,Vasquez Quispe Reason for Consult: GROSS HEMATURIA WITH RETENTION. Source of Information: patient, old records History of Present Illness: Thisn is an 87 year-old male with a history of dementia, hypertension, coronary artery disease s/p quadruple bypass, hyperlipidemia, aortic stenosis, benign prostate hyperplasia and a history of urinary retention who was brought in by EMS from assisted living home with acute onset of abdominal pain since this afternoon. Patient reports right upper quadrant pain that radiates around his back and a stuffy nose since my arrival. He reports the pain is intermittent and discomforting. He states the pain is worse with palpation. He cannot recall what he last ate or if his abdominal pain has any relation to food. He denies any similar episodes. In the ER he had a CT scan which revealed cholelithiasis with edema around the gallbladder, concernerning for an acute cholecystitis and no bile duct dilatation. He denies any fever, chills, vomiting, chest pain, shortness of breath or difficulty breathing. Allergies/Medications Allergies: Coded Allergies: Antihistamines - Alkylamine (UNKNOWN 04/30/17) Home Med List: Acetaminophen (Pain Reliever) 500 MG CAPSULE 2 TAB PO BID PRN PAIN (Reported) Aspirin (Ecotrin*) 81 MG TABLET.DR 1 TAB PO DAILY HEART/BLOOD (Reported) Atorvastatin Calcium (Lipitor) 20 MG TABLET 1 TAB PO DAILY CHOLESTEROL ( Reported) Clonidine HCl 0.1 MG TABLET 1 TAB PO DAILY HTN (Reported) Cyanocobalamin (Vitamin B-12) 1,000 MCG TABLET 1 TAB PO DAILY SUPPLEMENT ( Reported) Finasteride 5 MG TABLET 1 TAB PO DAILY PROSTATE (Reported) Folic Acid 1 MG TABLET 1 TAB PO DAILY SUPPLEMENT (Reported) Furosemide (Lasix) 40 MG TABLET 1 TAB PO EOD DIURETIC (Reported) Memantine HCl (Namenda) 10 MG TABLET 1 TAB PO BID MEMORY (Reported) Metoprolol Tartrate 25 MG TABLET 1 TAB PO BID HTN (Reported) Nystatin (Nyamyc) 100,000 UNIT/GRAM POWDER 1 FALLON TOP AD PRN UNKNOWN (Reported ) Omeprazole 40 MG CAPSULE.DR 1 CAP PO DAILY GI (Reported) Polyethylene Glycol 3350 (Miralax) 17 GRAM POWD.PACK 1 PAC PO DAILY PRN GI ( Reported) dissolve in water Potassium Chloride (K-Tab ER) 10 MEQ TABLET.ER 1 TAB PO DAILY SUPPLEMENT ( Reported) Selenium Sulfide 2.5 % SHAMPOO 1 FALLON TOP BID ABD & LEGS (Reported) Sennosides (Senna) 8.6 MG TABLET 1 TAB PO Monday GI (Reported) Tamsulosin HCl (Flomax) 0.4 MG CAP.ER.24H 1 CAP PO DAILY BPH (Reported) Trazodone HCl 50 MG TABLET 1 TAB PO BID UNKNOWN (Reported) Triamcinolone Acetonide 0.1 % OINT...G. 1 FALLON TOP AD PRN ABD & LEGS (Reported ) apply to affected area(s) Triamcinolone Acetonide 0.1 % OINT...G. 1 FALLON TOP BID dermatis apply to affected area(s) Current Medications: Current Medications Sig/Supa Start time Last Medication Dose Route Stop Time Status Admin Acetaminophen 1,000 MG Q6P PRN 05/01 1899 AC N/A 1 UNIT IV Acetaminophen 1,000 MG Q6P PRN 05/01 024 DC N/A 1 UNIT IV Ampicillin Sodium/ 1,500 MG Q6 05/01 2358 DC Sulbactam Sodium IV 05/02 0629 Sodium Chloride 100 ML Ampicillin Sodium/ 1,500 MG Q6 05/01 2359 DC 05/02 Sulbactam Sodium IV 05/02 0629 0519 Sodium Chloride 50 ML Ampicillin Sodium/ 3,000 MG Q6 05/01 0600 DC 05/01 Sulbactam Sodium IV 1229 Sodium Chloride 100 ML Dextrose/Lactated 1,000 ML Q10H 05/01 190 AC 05/02 Ringer's IV 0545 Dextrose/Sodium 1,000 ML .Q8H 05/01 0245 DC 05/01 Chloride IV 1205 Finasteride 5 MG DAILY 05/01 1906 AC 05/01 PO 2142 Heparin Sodium 5,000 UNIT Q8 05/010 AC 05/02 (Porcine) SC 0519 Heparin Sodium 5,000 UNIT Q8 05/01 0600 DC 05/01 (Porcine) SC 0620 Hydromorphone HCl 2 MG .STK-MED ONE 05/01 1915 DC IM 05/01 1916 Memantine 10 MG BID 05/01 2199 AC 05/01 PO 214 Metoprolol Tartrate 25 MG BID 05/01 2199 AC PO Metoprolol Tartrate 0 .STK-MED ONE 05/01 0859 DC PO Metoprolol Tartrate 25 MG BID 05/01 0241 DC 05/01 PO 1006 Morphine Sulfate 2 MG Q2P PRN 05/01 1900 AC IV Morphine Sulfate 0 .STK-MED ONE 05/01 927 DC .ROUTE Morphine Sulfate 2 MG ONCE ONE 05/01 914 DC 05/01 IV 05/01 0916 0930 Morphine Sulfate 2 MG Q2P PRN 05/01 0245 DC 05/01 IV 0734 Nystatin 1 FALLON BID 05/01 2199 AC 05/01 TOP 2206 Omeprazole 40 MG DAILY AC 05/02 0700 AC PO Ondansetron HCl 4 MG Q6P PRN 05/01 1900 AC IV Ondansetron HCl 0 .STK-MED ONE 05/01 927 DC .ROUTE Ondansetron HCl 4 MG Q8P PRN 05/01 024 DC 05/01 IV 0930 Oxycodone HCl 5 MG Q4 HRS NEEDED PRN 05/01 1900 AC PO Oxycodone HCl 10 MG Q4 HRS NEEDED PRN 05/01 1900 AC PO Pantoprazole Sodium 40 MG DAILY 05/01 1000 DC 05/01 IV 1005 Pantoprazole Sodium 0 .STK-MED ONE 05/01 1000 DC IV Sodium Chloride 500 ML BOLUS ONE 05/01 2199 DC 05/01 IV 05/01 2259 2151 Sodium Chloride 2 SPRAY Q4P PRN 05/01 1900 AC MARIANA Sodium Chloride 2 SPRAY Q4P PRN 05/01 0245 DC 05/01 MARIANA 0315 Tamsulosin HCl 0.4 MG DAILY 05/01 1910 AC 05/02 PO 0140 Triamcinolone 1 FALLON BID 05/01 220 AC 05/01 Acetonide TOP 2142 Triamcinolone 1 FALLON BID 05/01 1000 DC Acetonide TOP Past History Medical History Blood Transfusion Hx: Yes Neurological: Alzheimer's disease EENT: NONE Cardiovascular: aortic stenosis, CAD, hypertension, hyperlipidemia, QUAD BYPASS 70% CAROTID ARTERY OCCLUS CHRONIC EDEMA RBBB Respiratory: NONE Gastrointestinal: diverticulosis Hepatic: NONE Renal: benign prost hyperplasia, URINARY RETENTION Musculoskeletal: NONE Psychiatric: NONE Endocrine: obesity, pre-DM Blood Disorders: vasculitis BACTEREMIA PVD Cancer(s): NONE 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 Relation not specified for: FH: leukemia Psychosocial History Services at Home: Home Health Aide Smoking Status: Unknown If Ever Smoked Employment History Retired? yes Review of Systems Review of Systems Constitutional: Denies: no symptoms. EENTM: Denies: no symptoms. Cardiovascular: Denies: no symptoms. Respiratory: Denies: no symptoms. GI: Reports: abdominal pain, bloating. Genitourinary: Denies: no symptoms. Musculoskeletal: Denies: no symptoms. Exam & Diagnostic Data Vital Signs and I&O Vital Signs Date Time Temp Pulse Resp B/P B/P Pulse O2 O2 Flow FiO2 Mean Ox Delivery Rate 05/02 0400 97 Nasal 2.0L Cannula 05/02 0140 80 114/74 05/02 0000 97.0 86 16 102/74 95 Nasal 95% Cannula 05/02 0000 95 Nasal 2.0L Cannula 05/01 2142 80 90/54 05/01 1945 95 Nasal 2.0L Cannula 05/01 1123 99.4 99 18 130/72 91 Room Air 05/01 1010 100.2 100 18 140/74 98 / 1006 100 18 140/74 05/01 0834 98.3 84 22 170/88 93 Intake & Output 05/02 0800 / 0000 05/01 1600 05/01 0800 05/01 0000 04/30 1600 Intake Total 800 688 389 4129 Output Total 535 40 700 Balance 265 880 500 300 Intake, IV 800 251 302 9563 Intake, Oral 60 Output, 10 40 Drainage Output, Urine 525 700 Patient 200 lb 200 lb 200 lb Weight Weight Reported by Patient Reported by Patient Measurement Method Physical Exam General Appearance: well developed/nourished Head: atraumatic Eyes: Bilateral: normal appearance. Respiratory: normal breath sounds Cardiovascular: regular rate/rhythm Gastrointestinal: soft, tenderness Back: no vertebral tenderness Extremities: normal inspection Reproductive: Normal male genitalia Last 24 Hours of Labs: Laboratory Tests 05/02 424 Chemistry Sodium (137 - 145 mmol/L) 142 Potassium (3.5 - 5.1 mmol/L) 4.1 Chloride (98 - 107 mmol/L) 100 Carbon Dioxide (22 - 30 mmol/L) 28 Anion Gap (5 - 16) 14 BUN (9 - 20 mg/dL) 18 Creatinine (0.7 - 1.2 mg/dL) 1.1 Estimated GFR (>60 ml/min) > 60 BUN/Creatinine Ratio (7 - 25 %) 16.4 Phosphorus (2.5 - 4.5 mg/dL) 3.5 Magnesium (1.6 - 2.3 mg/dL) 1.4 L Hematology CBC w Diff NO MAN DIFF REQ WBC (4.8 - 10.8 /CUMM) 14.3 H RBC (4.70 - 6.10 /CUMM) 4.65 L Hgb (14.0 - 18.0 G/DL) 14.1 Hct (42 - 52 %) 41.7 L MCV (80.0 - 94.0 FL) 89.7 MCH (27.0 - 31.0 PG) 30.3 MCHC (33.0 - 37.0 G/DL) 33.8 RDW (11.5 - 14.5 %) 13.8 Plt Count (130 - 400 /CUMM) 170 MPV (7.4 - 10.4 FL) 8.9 Gran % (42.2 - 75.2 %) 87.8 H Lymphocytes % (20.5 - 51.1 %) 7.9 L Monocytes % (1.7 - 9.3 %) 4.1 Eosinophils % (0 - 5 %) 0.2 Basophils % (0.0 - 2.0 %) 0 Absolute Granulocytes (1.4 - 6.5 /CUMM) 12.6 H Absolute Lymphocytes (1.2 - 3.4 /CUMM) 1.1 L Absolute Monocytes (0.10 - 0.60 /CUMM) 0.6 Absolute Eosinophils (0.0 - 0.7 /CUMM) 0 Absolute Basophils (0.0 - 0.2 /CUMM) 0 Imaging Results: PATIENT: HELENA MCFARLANE PRESENT AGE: 87 PATIENT ACCOUNT NO: [id number] : 29 LOCATION: [facility] ORDERING PHYSICIAN: Terrence UNDERWOOD SERVICE DATE: 04/30/17 EXAM TYPE: CAT - CT ABD & PELVIS W IV CONTRAST EXAMINATION: CT ABDOMEN AND PELVIS WITH CONTRAST CLINICAL INFORMATION: Small bowel obstruction. Diffuse abdominal pain. Distention of abdomen. COMPARISON: CT abdomen pelvis June 22, 2015 TECHNIQUE: Multidetector volumetric imaging was performed of the abdomen and pelvis following IV administration of 95 mL of Optiray 320 intravenous contrast. Sagittal and coronal reformatted images were obtained on the technologist's workstation. DLP: 969.52 mGy-cm FINDINGS: LUNG BASES: Interstitial lung disease. Thickened interstitial lung markings at both lung bases with subpleural blebs and honeycombing. No pleural effusion. There is calcification of coronary arteries. Status post aortic valve repair. Status post median sternotomy. LIVER, GALLBLADDER, AND BILIARY TREE: The liver is normal in size, shape, and attenuation. No focal hepatic lesion or biliary ductal dilatation is present. Multiple small gallstones layering dependently in the neck of the gallbladder. There is a small amount of edema around the gallbladder. This raises question of an acute cholecystitis. There is no bile duct dilatation. Extrahepatic CBD measures 3 mm. PANCREAS: Unremarkable. SPLEEN: Unremarkable. ADRENAL GLANDS: Unremarkable. KIDNEYS AND URETERS: The kidneys are normal in size, shape, and attenuation. No hydronephrosis, hydroureter, or calculi seen. No perinephric stranding. BLADDER: Unremarkable. GASTROINTESTINAL TRACT: No acute change of the bowel. No bowel obstruction. No bowel wall thickening or edema. Moderate amount of stool throughout the colon. There is diverticulosis of the colon but no diverticulitis. The appendix is normal. Small bowel loops are unremarkable. ABDOMINAL WALL: Fat-containing umbilical hernia. There are small bilateral fat-containing inguinal hernias. LYMPH NODES: Normal. VASCULAR: Atherosclerotic vascular wall calcification of aorta and iliac vessels without aneurysm. PELVIC VISCERA: Prostate enlarged. Impresses into the bladder base. Measures 6 cm transverse. OSSEOUS STRUCTURES: Degenerative spondylosis of spine with multilevel disc height narrowing and endplate spurring and facet joint arthrosis. Slight loss of height of L4 vertebrae. There is a large hemangioma in the L4 vertebral body. IMPRESSION: 1. Cholelithiasis. Edema around the gallbladder raising concern for an acute cholecystitis. No bile duct dilatation. 2. Interstitial lung disease. Assessment/Plan Assessment/Plan GROSS HEMATURIA WITH CLOT RETENTION: OLD OBANDO DC'D AND 3-WAY OBANDO PLACED ON NS CBI; MAY NEED CYSTOSCOPY IF HEMATURIA DOES NOT RESOLVE Copies To: Isauro Hernandez MD Consult Acknowledgment - Thank you for your consult request. Attending MD Review Statement Attending Statement Attending MD Statement: examined this patient, discuss w/resident/PA/OPERATIONS RESEARCH DIRECTOR Attending Assessment/Plan: CBI TO CLEAR CLOT/HEMATURIA
[2017-05-02 08:00] VITALS: BP 126/62
--- NOTE | 2017-05-02 08:38 | Cons- CRCU ---
Matt Colvin 05/02/17 0838: General Information and HPI Consulting Request Date of Consult: 05/02/17 Requested By: Dr. Mejía Reason for Consult: Acute cholecystitis Hypotension Source of Information: patient Exam Limitations: unable to give history History of Present Illness: Ms Daniel is a 87 year old gentleman with a PMHx Alzheimers dementia, HTN, HLD, CAD ( s/p CABGx4 09/2001 w/ NEGRON to LAD and SVGs to the Dx of LAD, M1 of LCx, and distal RCA, stress test done in 07/2008 was negative for ischemia ), right bundle-branch block (chronic), severe aortic stenosis ( AV area 0.9% in 2016), BPH was brought in by the EMS from assisted living home with a chief concern of acute onset of abdominal pain of a few hours duration. At the time of admission, he remained afebrile, heart rate 81, respiration 22, blood pressure 146/67, 95% on room air; lab findings revealed white count 10.9-- >14.3(05/02), LA 2.9-->1.6. Abdominal CT scan findings revealed evidence of cholelithiasis and cholecystitis, and underwent lap fidel on 05/01/16 which was performed by Dr. Mejía. As per the notes, he was found to be hypotensive intra- operatively, and considering history of critical aortic stenosis he was given fluids cautiously ( total of 1L of fluids ); he was then transfered to the critical care unit as per the client service supervisor's recommendation to monitor his blood pressure. He also developed urinary difficulty, and had a almaraz catheter placed. He had some hematuria which was thought to be due to traumatic placement of almaraz catheter, and was also started on CBI. Allergies/Medications Allergies: Coded Allergies: Antihistamines - Alkylamine (UNKNOWN 04/30/17) Home Med List: Acetaminophen (Pain Reliever) 500 MG CAPSULE 2 TAB PO BID PRN PAIN (Reported) Aspirin (Ecotrin*) 81 MG TABLET.DR 1 TAB PO DAILY HEART/BLOOD (Reported) Atorvastatin Calcium (Lipitor) 20 MG TABLET 1 TAB PO DAILY CHOLESTEROL ( Reported) Clonidine HCl 0.1 MG TABLET 1 TAB PO DAILY HTN (Reported) Cyanocobalamin (Vitamin B-12) 1,000 MCG TABLET 1 TAB PO DAILY SUPPLEMENT ( Reported) Finasteride 5 MG TABLET 1 TAB PO DAILY PROSTATE (Reported) Folic Acid 1 MG TABLET 1 TAB PO DAILY SUPPLEMENT (Reported) Furosemide (Lasix) 40 MG TABLET 1 TAB PO EOD DIURETIC (Reported) Memantine HCl (Namenda) 10 MG TABLET 1 TAB PO BID MEMORY (Reported) Metoprolol Tartrate 25 MG TABLET 1 TAB PO BID HTN (Reported) Nystatin (Nyamyc) 100,000 UNIT/GRAM POWDER 1 [place] TOP AD PRN UNKNOWN (Reported ) Omeprazole 40 MG CAPSULE.DR 1 CAP PO DAILY GI (Reported) Polyethylene Glycol 3350 (Miralax) 17 GRAM POWD.PACK 1 PAC PO DAILY PRN GI ( Reported) dissolve in water Potassium Chloride (K-Tab ER) 10 MEQ TABLET.ER 1 TAB PO DAILY SUPPLEMENT ( Reported) Selenium Sulfide 2.5 % SHAMPOO 1 [place] TOP BID ABD & LEGS (Reported) Sennosides (Senna) 8.6 MG TABLET 1 TAB PO Monday GI (Reported) Tamsulosin HCl (Flomax) 0.4 MG CAP.ER.24H 1 CAP PO DAILY BPH (Reported) Trazodone HCl 50 MG TABLET 1 TAB PO BID UNKNOWN (Reported) Triamcinolone Acetonide 0.1 % OINT...G. 1 FALLON TOP AD PRN ABD & LEGS (Reported ) apply to affected area(s) Triamcinolone Acetonide 0.1 % OINT...G. 1 FALLON TOP BID dermatis apply to affected area(s) Current Medications: Current Medications Sig/Supa Start time Last Medication Dose Route Stop Time Status Admin Acetaminophen 1,000 MG Q6P PRN 05/01 190 AC 05/02 N/A 1 UNIT IV 0834 Acetaminophen 1,000 MG Q6P PRN 05/01 0245 DC N/A 1 UNIT IV Ampicillin Sodium/ 1,500 MG Q6 05/01 2359 DC Sulbactam Sodium IV 05/02 628 Sodium Chloride 100 ML Ampicillin Sodium/ 1,500 MG Q6 05/01 2359 DC 05/02 Sulbactam Sodium IV 05/02 628 0519 Sodium Chloride 50 ML Ampicillin Sodium/ 3,000 MG Q6 05/01 0600 DC 05/01 Sulbactam Sodium IV 1229 Sodium Chloride 100 ML Dextrose/Lactated 1,000 ML Q10H 05/01 1900 AC 05/02 Ringer's IV 0545 Dextrose/Sodium 1,000 ML .Q8H 05/01 0245 DC 05/01 Chloride IV 1205 Finasteride 5 MG DAILY 05/01 1906 AC 05/02 PO 1025 Heparin Sodium 5,000 UNIT Q8 05/01 2199 AC 05/02 (Porcine) SC 0519 Heparin Sodium 5,000 UNIT Q8 05/01 06 DC 05/01 (Porcine) SC 0620 Hydromorphone HCl 2 MG .STK-MED ONE 05/01 1915 DC IM 05/01 1916 Magnesium Sulfate 1 GM Q2H 05/02 799 DC 05/02 Dextrose/Water 100 ML IV 05/02 1159 1007 Memantine 10 MG BID 05/01 2199 AC 05/02 PO 1025 Metoprolol Tartrate 25 MG BID 05/01 2199 AC PO Metoprolol Tartrate 25 MG BID 05/01 024 DC 05/01 PO 1006 Morphine Sulfate 2 MG Q2P PRN 05/01 190 AC 05/02 IV 1209 Morphine Sulfate 2 MG Q2P PRN 05/01 024 DC 05/01 IV 0734 Nystatin 1 FALLON BID 05/01 2199 AC 05/02 TOP 0837 Omeprazole 40 MG DAILY AC 05/02 07 AC 05/02 PO 1026 Ondansetron HCl 4 MG Q6P PRN 05/01 190 AC IV Ondansetron HCl 4 MG Q8P PRN 05/01 0245 DC 05/01 IV 0930 Oxycodone HCl 5 MG Q4 HRS NEEDED PRN 05/01 190 AC PO Oxycodone HCl 10 MG Q4 HRS NEEDED PRN 05/01 190 AC PO Pantoprazole Sodium 40 MG DAILY 05/01 1000 DC 05/01 IV 1005 Sodium Chloride 500 ML BOLUS ONE 05/01 2199 DC 05/01 IV 05/01 2259 2151 Sodium Chloride 2 SPRAY Q4P PRN 05/01 190 AC MARIANA Sodium Chloride 2 SPRAY Q4P PRN 05/01 024 DC 05/01 MARIANA 0315 Tamsulosin HCl 0.4 MG 05/02 AC PO Tamsulosin HCl 0.4 MG DAILY 05/01 1909 DC 05/02 PO 0140 Triamcinolone 1 FALLON BID PRN 05/02 08 AC 05/02 Acetonide TOP 1025 Triamcinolone 1 FALLON BID 05/01 2200 DC 05/01 Acetonide TOP 2142 Triamcinolone 1 FALLON BID 05/01 1000 DC Acetonide TOP Review of Systems Review of Systems Constitutional: Reports: see HPI. Denies: chills, fever. EENTM: Denies: blurred vision. Cardiovascular: Denies: chest pain, edema. Respiratory: Denies: cough, short of breath. GI: Reports: abdominal pain. Denies: diarrhea, melena. Genitourinary: Denies: dysuria. Musculoskeletal: Denies: back pain. Skin: Denies: change in skin color. Neurological/Psychological: Denies: anxiety, headache. Hematologic/Endocrine: Denies: bruising. Past History Travel History Traveled to [place] past 21 day No Medical History Blood Transfusion Hx: Yes Neurological: Alzheimer's disease EENT: NONE Cardiovascular: aortic stenosis, CAD, hypertension, hyperlipidemia, QUAD BYPASS 70% CAROTID ARTERY OCCLUS CHRONIC EDEMA RBBB Respiratory: NONE Gastrointestinal: diverticulosis Hepatic: NONE Renal: benign prost hyperplasia, URINARY RETENTION Musculoskeletal: NONE Psychiatric: NONE Endocrine: obesity, pre-DM Blood Disorders: vasculitis BACTEREMIA PVD Cancer(s): NONE CLIMATOLOGY TEACHER/Reproductive: NONE Surgical History Surgical History: CABG ( 10 YRS AGO), QUAD BYPASS Family History Relations & Conditions If Any: SON, , Age 30-40. Relation not specified for: FH: leukemia Psychosocial History Services at Home: Home Health Aide Smoking Status: Unknown If Ever Smoked Exam & Diagnostic Data Last 24 Hrs of Vital Signs/I&O Vital Signs Date Time Temp Pulse Resp B/P B/P Pulse O2 O2 Flow FiO2 Mean Ox Delivery Rate 05/02 1200 Nasal 2.0L Cannula 05/02 08 Nasal 2.0L Cannula 05/02 08 98.0 86 18 126/62 97 Nasal 2.0L Cannula 05/02 0400 97 Nasal 2.0L Cannula 05/02 0140 80 114/74 02/ 0000 97.0 86 16 102/74 95 Nasal 95% Cannula 05/02 0000 95 Nasal 2.0L Cannula 05/01 2142 80 90/54 05/01 1945 95 Nasal 2.0L Cannula Intake & Output 05/02 1600 05/02 0800 02/ 0000 Intake Total 800 920 Output Total 535 40 Balance 265 880 Intake, IV 800 860 Intake, Oral 60 Output, 10 40 Drainage Output, Urine 525 Patient 200 lb Weight Weight Reported by Patient Measurement Method Physical Exam General Appearance: well developed/nourished, no apparent distress, alert, awake , obese, AAOx2 Head: atraumatic, normal appearance Eyes: Bilateral: normal appearance, PERRL, EOMI. Ears, Nose, Throat: normal pharynx Neck: normal inspection, supple Respiratory: normal breath sounds, no respiratory distress Cardiovascular: regular rate/rhythm, normal peripheral pulses, systolic murmur Peripheral Pulses: 4+ radial (R), 4+ radial (L), 4+ dorsalis pedis (R), 4+ dorsalis pedis (L) Gastrointestinal: normal bowel sounds, soft, abdmoninal tenderness diffuse, no rebound tenderness, NICK drain in place lap fidel incisions in place, no erythema. Extremities: normal inspection, no edema Neurologic/Psych: no motor/sensory deficits, awake, alert, normal mood/affect, abnormal SET UP MACHINIST II-XII, mig welder II-XII nml as tested Cranial Nerves: normal hearing, normal speech, PERRL Reflexes: 4+: knee (R), knee (L). Skin: normal color, warm/dry Last 48 Hrs of Labs/Mark: Laboratory Tests 05/02/17 0425: Anion Gap 14, Estimated GFR > 60, BUN/Creatinine Ratio 16.4, Phosphorus 3.5, Magnesium 1.4 L, CBC w Diff NO MAN DIFF REQ, RBC 4.65 L, MCV 89.7, MCH 30.3, MCHC 33.8, RDW 13.8, MPV 8.9, Gran % 87.8 H, Lymphocytes % 7.9 L, Monocytes % 4.1, Eosinophils % 0.2, Basophils % 0, Absolute Granulocytes 12.6 H, Absolute Lymphocytes 1.1 L, Absolute Monocytes 0.6, Absolute Eosinophils 0, Absolute Basophils 0 05/01/17 0618: CBC w Diff NO MAN DIFF REQ, RBC 4.90, MCV 88.8, MCH 30.5, MCHC 34.4, RDW 13.6, MPV 8.6, Gran % 79.7 H, Lymphocytes % 13.8 L, Monocytes % 5.6, Eosinophils % 0.4, Basophils % 0.5, Absolute Granulocytes 9.1 H, Absolute Lymphocytes 1.6, Absolute Monocytes 0.6, Absolute Eosinophils 0, Absolute Basophils 0.1 05/01/17 0330: Total Bilirubin 1.1, Direct Bilirubin 0.2, AST 23, ALT 34, Alkaline Phosphatase 145 H, Total Protein 6.9, Albumin 3.8 05/01/17 0230: Lactic Acid 1.6 04/30/175: Urine Color YEL, Urine Clarity CLEAR, Urine pH 6.0, Ur Specific [place] 1.020, Urine Protein NEG, Urine Ketones NEG, Urine Nitrite NEG, Urine Bilirubin NEG, Urine Urobilinogen 1.0, Ur Leukocyte Esterase NEG, Ur Microscopic EXAM NOT REQUIRED, Urine Hemoglobin NEG, Urine Glucose NEG 04/30/17 2320: Anion Gap 15, Estimated GFR > 60, BUN/Creatinine Ratio 18.9, Glucose 256 H, Lactic Acid 2.9 H, Calcium 8.7, Total Bilirubin 1.1, AST 20, ALT 28, Alkaline Phosphatase 132 H, Troponin I < 0.01, Total Protein 6.9, Albumin 3.9, Globulin 3.0, Albumin/Globulin Ratio 1.3, Lipase 39, CBC w Diff NO MAN DIFF REQ, RBC 4.70 , MCV 88.5, MCH 30.2, MCHC 34.1, RDW 13.6, MPV 8.5, Gran % 78.7 H, Lymphocytes % 15.5 L, Monocytes % 4.8, Eosinophils % 0.6, Basophils % 0.4, Absolute Granulocytes 8.6 H, Absolute Lymphocytes 1.7, Absolute Monocytes 0.5, Absolute Eosinophils 0.1, Absolute Basophils 0 Microbiology 04/30 2321 NASOPHARYN: Influenza Virus A & B Rapid Smear - COMP Diagnostic Data EKG Results NSR RBBB LAFB No STTWI CXR Results RAD - XRY-PORTABLE CHEST XRAY 04/30/[address] and intact. Low lung volumes. Lungs clear. Cardiac silhouette mediastinum pulmonary vascularity normal. IMPRESSION: No acute disease. Other Results CAT - CT ABD & PELVIS W IV CONTRAST 04/30/17 1. Cholelithiasis. Edema around the gallbladder raising concern for an acute cholecystitis. No bile duct dilatation. 2. Interstitial lung disease. Assessment/Plan Impression/Plan: Ms Daniel is a 87 year old gentleman with a PMHx Alzheimers dementia, HTN, HLD, CAD ( s/p CABGx4 09/2001 w/ NEGRON to LAD and SVGs to the Dx of LAD, M1 of LCx, and distal RCA, stress test done in 07/2008 was negative for ischemia ), right bundle-branch block (chronic), severe aortic stenosis ( AV area 0.9% in 2016), BPH was brought in by the EMS from assisted living home with a chief concern of acute onset of abdominal pain of a few hours duration secondary to cholecystitis. Abdominal CT scan findings revealed evidence of cholelithiasis and cholecystitis , and underwent lap fidel on 05/01/16 which was performed by Dr. Mejía. As per the notes, he was found to be hypotensive intra-operatively, and considering history of critical aortic stenosis he was given fluids cautiously ( total of 1L of fluids ); he was then transfered to the critical care unit as per the client service supervisor's recommendation to monitor his blood pressure. Etiology for his low BP was likely from his surgery, and was borderline hypotenisve but responded well to fluids. He is currently hemodynamically stable. Plan: 1. Respiratory: He is currently on 2L oxygen, and continues to saturate well. Wean off suplemental oxygen as tolerated. No history of COPD or ILD. 2. Infectious: He continues to be afebrile. WBC 10.9-->14.3, and received unasyn both intra-operatively and post operatively. Would defer the decision to the surigical team to continue antibiotics. Continue to monitor WBC. 3. Circulatory: Continues to get RL, which should be discontinued after this current bag. In regards to his , follow up with echocardiogram results. Dr. Smith advising. If the pt has any chest pain, should let Dr. Smith know immediately. Discontinue fluids after the current bag. 4. Alimentary- POD 1, s/p lap fidel. Care as per surgery. NICK drain in place. No e/o acute abdomen. BS positive. Advance diet as tolerated. 5. Metabolic: Continue CBD for now, and no plans for cystoscopy as per Dr. Hernandez. If the pt doesnt have any hematuria, almaraz catheter can be removed in the am. Replete electrolytes to keep Mg 2.0. Proscar and Finasteride for BPH. 6. Neurology- currently stable. Pain control w/ opiates. Continue his meds for dementia. DVT PPx- Heparin sc. GI Ppx- Protonix Full code. Lines: Peripheral IV Ventilator- None. Pressors- none Sedation- none. Almaraz- in place. Antibiotics- none. Consults- Cardiolgy Problem List: 1. Acute cholecystitis 2. Severe aortic stenosis Consult Acknowledgment - Thank you for your consult request. Maciel Ruiz MD 05/02/17 1200: Assessment/Plan Other Findings/Comments: Maciel Castro M.D. have examined this patient, reviewed available EMR data, personally reviewed images, discussed with resident/PA/UPHOLSTERY MECHANIC, discussed management plan with housestaff and nursing staff, discussed managment plan all of healthcare providers, discussed management plan with patient and/or family, agreed with resident/PA/UPHOLSTERY MECHANIC. The past history and parts of the chart have been autopopulated. Impresion 87 year old man, s/p lap chol for acute cholecystitis, hematuria, Plan -surgery, urology, cardiology consulted -okay to transfer to telemetry from the ICU perspective -dc fluids and begin diet -nick drainage monitoring -incentive spirometry DVT prophylaxis at all times Consult Acknowledgment - Thank you for your consult request.
--- NOTE | 2017-05-02 08:59 | PN- General Surgery ---
Surgical Brief Attending Note Brief Attending Note: Stable overnight. Traumatic almaraz insertion with resolved hematuria after bladder irrigation. Underlying BPH is likely etiology. From my standpoint, patient can have regular diet once urology decides re: need for cystoscopy. continue SARAH until diet tolerance and absence of bile. Downgrade to telemetry per Cardiology.
--- NOTE | 2017-05-02 09:11 | PN- Cardiology ---
Subjective Subjective: Awake, alert, and without complaints postoperative day one. Specifically denies any abdominal discomfort at this time. Presently, hemodynamic medically stable. Earlier, blood pressure was borderline , but responded well to volume. Objective Vital Signs and I&Os Vital Signs Date Time Temp Pulse Resp B/P B/P Pulse O2 O2 Flow FiO2 Mean Ox Delivery Rate 05/02 799 Nasal 2.0L Cannula 05/02 08 98.0 86 18 126/62 97 Nasal 2.0L Cannula 05/02 0400 97 Nasal 2.0L Cannula 05/02 0140 80 114/74 / 0000 97.0 86 16 102/74 95 Nasal 95% Cannula 05/02 0000 95 Nasal 2.0L Cannula 05/01 2142 80 90/54 05/01 1945 95 Nasal 2.0L Cannula 05/01 1123 99.4 99 18 130/72 91 Room Air 05/01 1010 100.2 100 18 140/74 98 02/ 1006 100 18 140/74 Intake & Output 05/02 1600 05/02 0805/02 0000 05/01 1600 05/01 0800 05/01 0000 Intake Total 800 758 911 0489 Output Total 535 40 700 Balance 265 880 500 300 Intake, IV 800 219 514 6488 Intake, Oral 60 Output, 10 40 Drainage Output, Urine 525 700 Patient 200 lb 200 lb 200 lb Weight Weight Reported by Patient Reported by Patient Measurement Method Physical Exam: Well-developed, overweight elderly male in no acute distress. Vital signs: See above. HEENT: Normocephalic, atraumatic, EOMI, moist mucous membranes. Neck: No JVD. Lungs: Clear to auscultation bilaterally. Heart: S1, S2 (diminished) with grade 2/6 systolic ejection murmur best heard near the base. No gallop or rub. Abdomen: Distended, absent bowel sounds, tender. Extremities: No edema. Current Medications: Current Medications Sig/Supa Start time Last Medication Dose Route Stop Time Status Admin Acetaminophen 1,000 MG Q6P PRN 05/01 1900 AC 05/02 N/A 1 UNIT IV 0834 Acetaminophen 1,000 MG Q6P PRN 05/01 0245 DC N/A 1 UNIT IV Ampicillin Sodium/ 1,500 MG Q6 05/01 2359 DC Sulbactam Sodium IV 05/02 06 Sodium Chloride 100 ML Ampicillin Sodium/ 1,500 MG Q6 05/01 2359 DC 05/02 Sulbactam Sodium IV 05/02 0629 0519 Sodium Chloride 50 ML Ampicillin Sodium/ 3,000 MG Q6 05/01 06 DC 05/01 Sulbactam Sodium IV 1229 Sodium Chloride 100 ML Dextrose/Lactated 1,000 ML Q10H 05/01 190 AC 05/02 Ringer's IV 0545 Dextrose/Sodium 1,000 ML .Q8H 05/01 024 DC 05/01 Chloride IV 1205 Finasteride 5 MG DAILY 05/01 190 AC 05/01 PO 2142 Heparin Sodium 5,000 UNIT Q8 05/01 2199 AC 05/02 (Porcine) SC 0519 Heparin Sodium 5,000 UNIT Q8 05/01 06 DC 05/01 (Porcine) SC 0620 Hydromorphone HCl 2 MG .STK-MED ONE 05/01 1915 DC IM 05/01 191 Magnesium Sulfate 1 GM Q2H 05/02 08 AC 05/02 Dextrose/Water 100 ML IV 05/02 1159 0825 Memantine 10 MG BID 05/01 2199 AC 05/01 PO 2142 Metoprolol Tartrate 25 MG BID 05/01 2199 AC PO Metoprolol Tartrate 0 .STK-MED ONE 05/01 0959 DC PO Metoprolol Tartrate 25 MG BID 05/01 024 DC 05/01 PO 1006 Morphine Sulfate 2 MG Q2P PRN 05/01 1899 AC IV Morphine Sulfate 0 .STK-MED ONE 05/01 927 DC .ROUTE Morphine Sulfate 2 MG Q2P PRN 05/01 244 DC 05/01 IV 0734 Nystatin 1 [place] BID 05/01 2199 AC 05/02 TOP 0837 Omeprazole 40 MG DAILY AC 05/02 07 AC PO Ondansetron HCl 4 MG Q6P PRN 05/01 190 AC IV Ondansetron HCl 0 .STK-MED ONE 05/01 927 DC .ROUTE Ondansetron HCl 4 MG Q8P PRN 05/01 0245 DC 05/01 IV 0930 Oxycodone HCl 5 MG Q4 HRS NEEDED PRN 05/01 190 AC PO Oxycodone HCl 10 MG Q4 HRS NEEDED PRN 05/01 190 AC PO Pantoprazole Sodium 40 MG DAILY 05/01 1000 DC 05/01 IV 1005 Pantoprazole Sodium 0 .STK-MED ONE 05/01 1000 DC IV Sodium Chloride 500 ML BOLUS ONE 05/01 2199 DC 05/01 IV 05/01 Sodium Chloride 2 SPRAY Q4P PRN 05/01 190 AC MARIANA Sodium Chloride 2 SPRAY Q4P PRN 05/01 0245 DC 05/01 MARIANA 0315 Tamsulosin HCl 0.4 MG 05/02 AC PO Tamsulosin HCl 0.4 MG DAILY 05/01 1909 DC 05/02 PO 0140 Triamcinolone 1 [place] BID PRN 05/02 0810 AC Acetonide TOP Triamcinolone 1 [place] BID 05/01 2199 DC 05/01 Acetonide TOP 214 Triamcinolone 1 [place] BID 05/01 999 DC Acetonide TOP Results Last 48 Hrs of Labs/Mics: Laboratory Tests 05/02/17 0425: Anion Gap 14, Estimated GFR > 60, BUN/Creatinine Ratio 16.4, Phosphorus 3.5, Magnesium 1.4 L, CBC w Diff NO MAN DIFF REQ, RBC 4.65 L, MCV 89.7, MCH 30.3, MCHC 33.8, RDW 13.8, MPV 8.9, Gran % 87.8 H, Lymphocytes % 7.9 L, Monocytes % 4.1, Eosinophils % 0.2, Basophils % 0, Absolute Granulocytes 12.6 H, Absolute Lymphocytes 1.1 L, Absolute Monocytes 0.6, Absolute Eosinophils 0, Absolute Basophils 0 05/01/17 0618: CBC w Diff NO MAN DIFF REQ, RBC 4.90, MCV 88.8, MCH 30.5, MCHC 34.4, RDW 13.6, MPV 8.6, Gran % 79.7 H, Lymphocytes % 13.8 L, Monocytes % 5.6, Eosinophils % 0.4, Basophils % 0.5, Absolute Granulocytes 9.1 H, Absolute Lymphocytes 1.6, Absolute Monocytes 0.6, Absolute Eosinophils 0, Absolute Basophils 0.1 05/01/17 0330: Total Bilirubin 1.1, Direct Bilirubin 0.2, AST 23, ALT 34, Alkaline Phosphatase 145 H, Total Protein 6.9, Albumin 3.8 05/01/17 0230: Lactic Acid 1.6 04/30/17 2355: Urine Color YEL, Urine Clarity CLEAR, Urine pH 6.0, Ur Specific [place] 1.020, Urine Protein NEG, Urine Ketones NEG, Urine Nitrite NEG, Urine Bilirubin NEG, Urine Urobilinogen 1.0, Ur Leukocyte Esterase NEG, Ur Microscopic EXAM NOT REQUIRED, Urine Hemoglobin NEG, Urine Glucose NEG 04/30/17 2320: Anion Gap 15, Estimated GFR > 60, BUN/Creatinine Ratio 18.9, Glucose 256 H, Lactic Acid 2.9 H, Calcium 8.7, Total Bilirubin 1.1, AST 20, ALT 28, Alkaline Phosphatase 132 H, Troponin I < 0.01, Total Protein 6.9, Albumin 3.9, Globulin 3.0, Albumin/Globulin Ratio 1.3, Lipase 39, CBC w Diff NO MAN DIFF REQ, RBC 4.70 , MCV 88.5, MCH 30.2, MCHC 34.1, RDW 13.6, MPV 8.5, Gran % 78.7 H, Lymphocytes % 15.5 L, Monocytes % 4.8, Eosinophils % 0.6, Basophils % 0.4, Absolute Granulocytes 8.6 H, Absolute Lymphocytes 1.7, Absolute Monocytes 0.5, Absolute Eosinophils 0.1, Absolute Basophils 0 Microbiology 04/302 NASOPHARYN: Influenza Virus A & B Rapid Smear - COMP Assessment/Plan Assessment/Plan [id number] w/ hx Alzheimer's dementia, ILD, HTN, HLD, pre-DM, carotid artery disease (mild by carotid ultrasound 10/06/2015), CAD (s/p CABG x4 09/26/2001 w/ NEGRON to LAD and SVGs to the Dx of LAD, M1 of LCx, and distal RCA; last pharmacologic stress test 07/2008 negative for ischemia), conduction disease ( chronic RBBB), and valvular heart disease (severe range aortic stenosis by echocardiogram 10/13/2015 that also revealed moderate LVH with impaired relaxation and preserved EF 65-70%), who presented 04/30/2017 w/ acute cholecystitis w/ elevated temperature, WBC's, etc. and who is POD #1 s/p laparoscopic cholecystectomy. Earlier he was borderline hypotensive, but this responded well to volume and at present he is hemodynamically stable. Would continue with present regimen. If he remains symptomatically stable, he can be transferred to telemetry from a cardiac standpoint later today. Awaiting echocardiogram to reassess left ventricular function, degree of aortic stenosis, etc. Would obtain repeat electrocardiogram. Replete magnesium and aim to maintain at or above 2.0 mEq per liter. DVT prophylaxis. Continue telemetry? Not applicable (In ICU.)
[2017-05-02 16:00] VITALS: BP 128/70
[2017-05-03] VITALS: BP 124/80
[2017-05-03 05:50] LABS: ABSOLUTE BASOPHIL COUNT 0 /CUMM (0.0-0.2); ABSOLUTE EOSINOPHIL COUNT 0.1 /CUMM (0.0-0.7); ABSOLUTE GRANULOCYTE CT 7.9 /CUMM (1.4-6.5); ABSOLUTE MONOCYTE COUNT 0.4 /CUMM (0.10-0.60); BASOPHIL % 0.3 % (0.0-2.0); HEMATOCRIT 37.6 % (42-52); MEAN CORPUSCULAR HGB 30.1 PG (27.0-31.0); MEAN CORPUSCULAR HGB CONC 33.5 G/DL (33.0-37.0); MEAN CORPUSCULAR VOLUME 89.8 FL (80.0-94.0); MEAN PLATELET VOLUME 8.5 FL (7.4-10.4); RBC DISTRIBUTION WIDTH 14.2 % (11.5-14.5); RED BLOOD CELL CT 4.19 /CUMM (4.70-6.10); WHITE BLOOD CELL COUNT 9.5 /CUMM (4.8-10.8)
[2017-05-03 06:15] LABS: PLATELET COUNT 143 /CUMM (130-400)
[2017-05-03 06:16] LABS: GRANULOCYTE % 83.7 % (42.2-75.2)
--- NOTE | 2017-05-03 07:26 | PN- General Surgery ---
See Addendum Subjective Subjective: Pt laying in bed, says he didnt sleep at all last night. Denies pain. Unsure if her has passed gas, no BM. Sung was DCed earlier this morning, has the urge to void. Chucks between his legs is wet with urine. Denies Chest pain or SOB Objective Vital Signs and I&Os Vital Signs Date Time Temp Pulse Resp B/P B/P Pulse O2 O2 Flow FiO2 Mean Ox Delivery Rate 05/03 0000 97.8 92 17 124/80 93 Nasal 1.0L Cannula 05/03 0000 93 Nasal 1.0L Cannula 05/02 2117 90 116/72 05/02 2117 90 116/72 05/02 1600 Nasal 2.0L Cannula 05/02 1600 97.6 72 18 128/70 98 Nasal 2.0L Cannula 05/02 1200 Nasal 2.0L Cannula 05/02 08 Nasal 2.0L Cannula 05/02 08 98.0 86 18 126/62 97 Nasal 2.0L Cannula Intake & Output 05/03 0800 05/03 0000 05/02 1600 05/02 0800 05/02 0000 05/01 1600 Intake Total 720 1080 1335 800 920 500 Output Total 560 420 520 535 40 Balance 160 660 815 265 880 500 Intake, IV 600 600 895 800 860 500 Intake, Oral 120 480 440 60 Output, 10 20 20 10 40 Drainage Output, Urine 550 400 500 525 Patient 200 lb 200 lb Weight Weight Reported by Patient Measurement Method Physical Exam: gen-NAD resp- clean cardio- RRR abd- obese, +BS, mildly tender. SARAH in place with scant serosang drainage in bulb. Dressings clean and dry Assessment/Plan Assessment/Plan POD2 sp lap fidel for acute cholecystitis, in ICU for close postop monitoring due to severe aortic stenosis with cad sp cabg, htn, dementia. stable. Voiding trial, sung DCed this morning as hematuria had resolved by CBI Possible need for cysto, Dr Hernandez to decide, though . Clr liquids if no uro intervention needed AM labs SARAH to self suction Strict I&Os- , postop ?out of icu later today Will skyler Mejía Core Measures Venous Thromboembolism VTE Risk Factors Age>40 No Mechanical VTE Prophylaxis d/t N/A MechProphylax Ordered No VTE Pharm Prophylaxis d/t NA PharmProphylax ordered
--- NOTE | 2017-05-03 07:50 | PN- Resident CRCU ---
Matt Colvin 05/03/17 0749: Subjective HPI/CRCU Issues: He didnt sleep very well last night, but didnt have any new complaints. Vitals remained stable overnight. Objective Vital Signs & I&O Last 8 Hrs of Vitals and I&O: Intake & Output 05/03 0800 Intake Total 720 Output Total 560 Balance 160 Intake, IV 600 Intake, Oral 120 Output, 10 Drainage Output, Urine 550 Exam General Appearance: alert, awake Other Physical Findings: General Appearance: well developed/nourished, no apparent distress, alert, awake , obese, AAOx2 Head: atraumatic, normal appearance Eyes: Bilateral: normal appearance, PERRL, EOMI. Ears, Nose, Throat: normal pharynx Neck: normal inspection, supple Respiratory: normal breath sounds, no respiratory distress Cardiovascular: regular rate/rhythm, normal peripheral pulses, systolic murmur Peripheral Pulses: 4+ radial (R), 4+ radial (L), 4+ dorsalis pedis (R), 4+ dorsalis pedis (L) Gastrointestinal: normal bowel sounds, soft, abdmoninal tenderness diffuse, no rebound tenderness, SARAH drain in place lap fidel incisions in place, no erythema. Extremities: normal inspection, no edema Neurologic/Psych: no motor/sensory deficits, awake, alert, normal mood/affect, abnormal ARCHITECTURAL PROJECT CAPTAIN II-XII, slicing machine tender II-XII nml as tested Cranial Nerves: normal hearing, normal speech, PERRL Reflexes: 4+: knee (R), knee (L). Skin: normal color, warm/dry Current Medications: Current Medications Sig/Supa Start time Last Medication Dose Route Stop Time Status Admin Acetaminophen 1,000 MG Q6P PRN 05/01 1899 AC 05/02 N/A 1 UNIT IV 0834 Docusate Sodium 100 MG BID 05/03 2199 AC 05/04 PO 0907 Finasteride 5 MG DAILY 05/01 1906 AC 05/04 PO 0908 Heparin Sodium 5,000 UNIT Q8 05/01 2199 AC 05/04 (Porcine) SC 0722 Memantine 10 MG BID 05/01 2199 AC 05/04 PO 0908 Metoprolol Tartrate 25 MG BID 05/01 2199 AC 05/04 PO 0908 Morphine Sulfate 2 MG Q2P PRN 05/01 1899 AC 05/02 IV 1209 Nystatin 1 FALLON BID 05/01 2199 AC 05/04 TOP 0908 Omeprazole 40 MG DAILY AC 05/02 0700 AC 05/04 PO 0723 Ondansetron HCl 4 MG Q6P PRN 05/01 190 AC IV Oxycodone HCl 5 MG Q4 HRS NEEDED PRN 05/01 1900 AC PO Oxycodone HCl 10 MG Q4 HRS NEEDED PRN 05/01 190 AC PO Sodium Chloride 2 SPRAY Q4P PRN 05/01 190 AC MARIANA Tamsulosin HCl 0.4 MG 05/02 AC 05/03 PO 2200 Triamcinolone 1 FALLON BID PRN 05/02 0810 AC 05/04 Acetonide TOP 0908 Impression/Plan Impression/Problem List Impression: Ms Daniel is a 87 year old gentleman with a PMHx Alzheimers dementia, HTN, HLD, CAD ( s/p CABGx4 09/2001 w/ NEGRON to LAD and SVGs to the Dx of LAD, M1 of LCx, and distal RCA, stress test done in 07/2008 was negative for ischemia ), right bundle-branch block (chronic), severe aortic stenosis ( AV area 0.9% in 2016), BPH was brought in by the EMS from assisted living home with a chief concern of acute onset of abdominal pain of a few hours duration secondary to cholecystitis. Abdominal CT scan findings revealed evidence of cholelithiasis and cholecystitis , and underwent lap fidel on 05/01/16 which was performed by Dr. Mejía. As per the notes, he was found to be hypotensive intra-operatively, and considering history of critical aortic stenosis he was given fluids cautiously ( total of 1L of fluids ); he was then transfered to the critical care unit as per the under water assistant's recommendation to monitor his blood pressure. Etiology for his low BP was likely from his surgery, and was borderline hypotenisve but responded well to fluids. He is currently hemodynamically stable , and can be downgraded to [facility]. Plan: 1. Respiratory: He is currently on 2L oxygen, and continues to saturate well. Wean off suplemental oxygen as tolerated. No history of COPD or ILD. 2. Infectious: He continues to be afebrile. Continue to monitor WBC. 3. Circulatory: Continues to get RL, which should be discontinued after this current bag. Dr. Smith advising. If the pt has any chest pain, should let Dr. Smith know immediately. Discontinue fluids after the current bag. 4. Alimentary- POD 2, s/p lap fidel. Care as per surgery. SARAH drain in place, which will be removed. No e/o acute abdomen. BS positive. Advance diet as tolerated. 5. Metabolic: Torres catheter remvoed. voiding trials. Replete electrolytes to keep Mg 2.0. Proscar and Finasteride for BPH. 6. Neurology- currently stable. Pain control w/ opiates. Continue his meds for dementia. DVT PPx- Heparin sc. GI Ppx- Protonix Full code. Lines: Peripheral IV Ventilator- None. Pressors- none Sedation- none. Torres- in place. Antibiotics- none. Consults- Cardiolgy Problem List: 1. Acute cholecystitis 2. Acute cholecystitis Pain Ratin Tomorrow's Labs & Rationales: cbc bep Plan DVT/Prophylaxis: pharmacological Maciel Ruiz MD 05/03/17 1037: Attending MD Review Statement Attending Sign Off Attending Cosign Statement: I have: examined this patient, reviewed avalbl EMR data, personally reviewd images, discussd w/resident/PA/[employer], discussed mgmt plan w/blaise, discussed mgmt plan w/CM, discussed mgmt plan w/pt, agreed w/resident/PA/[employer], amended to note. Other Findings: Maciel Castro M.D. have examined this patient, reviewed available EMR data, personally reviewed images, discussed with resident/PA/[employer], discussed management plan with housestaff and nursing staff, discussed managment plan all of healthcare providers, discussed management plan with patient and/or family, agreed with resident/PA/[employer]. The past history and parts of the chart have been autopopulated. Impresion 87 year old man, s/p lap chol for acute cholecystitis, hematuria, Plan -surgery, urology, cardiology consulted -tele hold - drainage monitoring -incentive spirometry will sign off DVT prophylaxis at all times
[2017-05-03 08:00] VITALS: BP 122/80
--- NOTE | 2017-05-03 10:14 | ECHOCARDIOGRAM REPORT ---
HELENA MCFARLANE Age: 87 : 1930 Gender: M Exam Date: 05/02/2017 09:52 Exam Location: [facility] Ht (in): 66 Wt (lb): 199 BSA: 2.08 BP: 106 / 59 Ordering Physician: Chantell Ojeda PA Referring Physician: Chantell Ojeda PA Technologist: Moe Oden KRISTIN Room Number: 110-1 Indications: Pre-op Rhythm: Sinus Technical Quality: Technically difficult study FINDINGS Left Ventricle Normal size left ventricle. Moderate concentric left ventricular hypertrophy. No obvious regional wall motion abnormalities. Normal left ventricular ejection fraction visually estimated at > 60%.abnormal relaxation filling pattern of the left ventricle for age (stage 1 diastolic dysfunction). Right Ventricle Normal right ventricular size and function. Right Atrium Normal right atrial size. Left Atrium Normal left atrial size. Mitral Valve Mild mitral annular calcification. Mitral valve thickened. Trace mitral regurgitation. Aortic Valve Diffuse thickening of the aortic valve cusps with reduced excursion. Severe aortic stenosis. Trace aortic regurgitation. Tricuspid Valve Structurally normal tricuspid valve. Mild tricuspid regurgitation. Mild pulmonary hypertension. Right ventricular systolic pressure estimated to be elevated at 38 mmHg. Pulmonic Valve Pulmonic valve not well visualized, grossly normal. No pulmonic regurgitation. Pericardium No pericardial effusion. Great Vessels Normal size aortic root. CONCLUSIONS Normal size left ventricle. Moderate concentric left ventricular hypertrophy. Normal left ventricular ejection fraction visually estimated at > 60%. Abnormal relaxation filling pattern of the left ventricle for age (stage 1 diastolic dysfunction). Normal right ventricular size and function. Normal atrial size. Trace mitral regurgitation. Severe aortic stenosis. Trace aortic regurgitation. Mild tricuspid regurgitation. Mild pulmonary hypertension. Felipe Smith M.D. (Electronically Signed) Final Date: 03 May 2017 10:14 MEASUREMENTS (Male / Female) Normal Values 2D ECHO LV Diastolic Diameter PLAX 3.8 cm 4.2 - 5.9 / 3.9 - 5.3 cm LV Systolic Diameter PLAX 2.2 cm 2.1 - 4.0 cm LV Fractional Shortening PLAX 42.1 % 25 - 46 % LV Ejection Fraction 2D Teich 73.8 % IVS Diastolic Thickness 1.4 cm LVPW Diastolic Thickness 1.4 cm LV Relative Wall Thickness 0.7 LVOT Diameter 2.3 cm Aortic Root Diameter 3.2 cm LA Systolic Diameter LX 3.3 cm 3.0 - 4.0 / 2.7 - 3.8 cm Ascending Aorta Diameter 3.3 cm DOPPLER AV Peak Velocity 490.0 cm/s AV Peak Gradient 96.0 mmHg AV Mean Velocity 362.0 cm/s AV Mean Gradient 58.0 mmHg AV Velocity Time Integral 111.0 cm AI Deceleration Levy 424.0 cm/s AI Peak Velocity 384.0 cm/s AI Pressure Half Time 266.0 ms AI Peak Gradient 59.0 mmHg LVOT Peak Velocity 109.0 cm/s LVOT Peak Gradient 4.8 mmHg LVOT Mean Velocity 71.7 cm/s LVOT Mean Gradient 3.0 mmHg LVOT Velocity Time Integral 29.7 cm LVOT Stroke Volume 123.4 cm AV Area Cont Eq vti 1.1 cm AV Area Cont Eq pk 0.9 cm MV Peak Velocity 114.0 cm/s MV Peak Gradient 5.2 mmHg MV Mean Velocity 62.0 cm/s MV Mean Gradient 2.0 mmHg Mitral E Point Velocity 90.3 cm/s Mitral A Point Velocity 90.8 cm/s Mitral E to A Ratio 1.0 MV PHT Velocity 118.0 cm/s MV Deceleration Levy 588.0 cm/s MV Pressure Half Time 60.2 ms MV Area PHT 3.7 cm MV Deceleration Time 264.0 ms TR Peak Velocity 282.0 cm/s TR Peak Gradient 31.8 mmHg Right Atrial Pressure 5.0 mmHg Pulmonary Artery Systolic Pressu 36.8 mmHg Right Ventricular Systolic Press 36.8 mmHg PV Peak Velocity 77.2 cm/s PV Peak Gradient 2.4 mmHg PV Mean Velocity 53.2 cm/s PV Mean Gradient 1.0 mmHg PV Velocity Time Integral 13.5 cm LV E' Lateral Velocity 3.5 cm/s Mitral E to LV E' Lateral Ratio 25.7 LV E' Septal Velocity 5.6 cm/s Mitral E to LV E' Septal Ratio 16.2
--- NOTE | 2017-05-03 12:19 | PN- Cardiology ---
Subjective Subjective: No complaints. Denies any chest discomfort, palpitations, shortness of breath, etc. Objective Vital Signs and I&Os Vital Signs Date Time Temp Pulse Resp B/P B/P Pulse O2 O2 Flow FiO2 Mean Ox Delivery Rate 05/03 1014 Nasal 1.0L Cannula 05/03 0947 83 122/80 05/03 0823 96 Nasal 1.0L Cannula 05/03 08 97.8 80 20 122/80 96 Nasal 1.0L Cannula 05/03 0000 97.8 92 17 124/80 93 Nasal 1.0L Cannula 05/03 0000 93 Nasal 1.0L Cannula 05/028 90 116/72 05/02 2117 90 116/72 05/02 1600 Nasal 2.0L Cannula 05/02 1600 97.6 72 18 128/70 98 Nasal 2.0L Cannula Intake & Output 05/03 1600 05/03 0800 05/03 0000 05/02 1600 05/02 0800 05/02 0000 Intake Total 720 1080 1335 800 920 Output Total 560 420 520 535 40 Balance 160 660 815 265 880 Intake, IV 600 600 895 800 860 Intake, Oral 120 480 440 60 Output, 10 20 20 10 40 Drainage Output, Urine 550 400 500 525 Patient 200 lb 200 lb Weight Weight Reported by Patient Measurement Method Physical Exam: Well-developed, overweight elderly male in no acute distress. Vital signs: See above. HEENT: Normocephalic, atraumatic, EOMI, moist mucous membranes. Neck: No JVD. Lungs: Clear to auscultation bilaterally. Heart: S1, S2 (diminished) with grade 2/6 systolic ejection murmur best heard near the base. No gallop or rub. Abdomen: Distended, absent bowel sounds, tender. Extremities: No edema. Current Medications: Current Medications Sig/Supa Start time Last Medication Dose Route Stop Time Status Admin Acetaminophen 1,000 MG Q6P PRN 05/01 1899 AC 05/02 N/A 1 UNIT IV 0834 Dextrose/Lactated 1,000 ML Q10H 05/01 1899 DC 05/02 Ringer's IV 05/02 1800 1919 Finasteride 5 MG DAILY 05/01 1906 AC 05/03 PO 0947 Heparin Sodium 5,000 UNIT Q8 05/01 2199 AC 05/03 (Porcine) SC 0614 Memantine 10 MG BID 05/01 2199 AC 05/03 PO 0941 Metoprolol Tartrate 25 MG BID 05/01 2199 AC 05/03 PO 0947 Morphine Sulfate 2 MG Q2P PRN 05/01 1899 AC 05/02 IV 1209 Nystatin 1 FALLON BID 05/01 2199 AC 05/03 TOP 0948 Omeprazole 40 MG DAILY AC 05/02 07 AC 05/03 PO 0614 Ondansetron HCl 4 MG Q6P PRN 05/01 1899 AC IV Oxycodone HCl 5 MG Q4 HRS NEEDED PRN 05/01 1899 AC PO Oxycodone HCl 10 MG Q4 HRS NEEDED PRN 05/01 190 AC PO Sodium Chloride 2 SPRAY Q4P PRN 05/03 0830 CAN MARIANA Sodium Chloride 2 SPRAY Q4P PRN 05/01 1899 AC MARIANA Tamsulosin HCl 0.4 MG 05/02 AC 05/02 PO 2118 Triamcinolone 1 FALLON BID PRN 05/02 0810 AC 05/02 Acetonide TOP 2053 Results Last 48 Hrs of Labs/Mics: Laboratory Tests 05/03/17 0525: Anion Gap 8, Estimated GFR > 60, BUN/Creatinine Ratio 16.3, CBC w Diff NO MAN DIFF REQ, RBC 4.19 L, MCV 89.8, MCH 30.1, MCHC 33.5, RDW 14.2, MPV 8.5, Gran % 83.7 H, Lymphocytes % 10.4 L, Monocytes % 4.6, Eosinophils % 1.0, Basophils % 0.3, Absolute Granulocytes 7.9 H, Absolute Lymphocytes 1.0 L, Absolute Monocytes 0.4, Absolute Eosinophils 0.1, Absolute Basophils 0 05/02/17 0425: Anion Gap 14, Estimated GFR > 60, BUN/Creatinine Ratio 16.4, Phosphorus 3.5, Magnesium 1.4 L, CBC w Diff NO MAN DIFF REQ, RBC 4.65 L, MCV 89.7, MCH 30.3, MCHC 33.8, RDW 13.8, MPV 8.9, Gran % 87.8 H, Lymphocytes % 7.9 L, Monocytes % 4.1, Eosinophils % 0.2, Basophils % 0, Absolute Granulocytes 12.6 H, Absolute Lymphocytes 1.1 L, Absolute Monocytes 0.6, Absolute Eosinophils 0, Absolute Basophils 0 Microbiology 05/01 1999 UPPER RESP: Surveillance Culture - COMP 05/01 1999 GI: Surveillance Culture - COMP Recent Imaging Studies: Echocardiogram 05/02/2017: Normal size left ventricle. Moderate concentric left ventricular hypertrophy. Normal left ventricular ejection fraction visually estimated at >60%. Abnormal relaxation filling pattern of the left ventricle for age (stage 1 diastolic dysfunction). Normal right ventricular size and function. Normal atrial size. Trace mitral regurgitation. Severe aortic stenosis. Trace aortic regurgitation. Mild tricuspid regurgitation. Mild pulmonary hypertension. Assessment/Plan Assessment/Plan [id number] w/ hx dementia, ILD, HTN, HLD, pre-DM, carotid dz, CAD (s/p remote CABG; last pharmacologic stress 07/2008 negative for ischemia), conduction disease (chronic RBBB), and valvular ht dz (severe ), who presented 04/30/2017 w/ acute cholecystitis and who is POD #2 laparoscopic cholecystectomy. Hemodynamically stable. Would continue with present regimen. Can be transferred to [facility] from a cardiac standpoint. DVT prophylaxis. Continue telemetry? No
[2017-05-03 16:00] VITALS: BP 126/70
[2017-05-04] VITALS: BP 140/80
[2017-05-04 05:07] LABS: ABSOLUTE BASOPHIL COUNT 0 /CUMM (0.0-0.2); ABSOLUTE EOSINOPHIL COUNT 0.1 /CUMM (0.0-0.7); ABSOLUTE GRANULOCYTE CT 6.7 /CUMM (1.4-6.5); ABSOLUTE LYMPH COUNT 1.1 /CUMM (1.2-3.4); ABSOLUTE MONOCYTE COUNT 0.4 /CUMM (0.10-0.60); BASOPHIL % 0.3 % (0.0-2.0); EOSINOPHIL % 1.1 % (0-5); GRANULOCYTE % 81.1 % (42.2-75.2); HEMATOCRIT 38.4 % (42-52); MEAN CORPUSCULAR HGB 29.7 PG (27.0-31.0); MEAN CORPUSCULAR HGB CONC 33.3 G/DL (33.0-37.0); MEAN CORPUSCULAR VOLUME 89.1 FL (80.0-94.0); MEAN PLATELET VOLUME 8.3 FL (7.4-10.4); PLATELET COUNT 175 /CUMM (130-400); RBC DISTRIBUTION WIDTH 13.8 % (11.5-14.5); RED BLOOD CELL CT 4.31 /CUMM (4.70-6.10); WHITE BLOOD CELL COUNT 8.2 /CUMM (4.8-10.8)
[2017-05-04 08:00] VITALS: BP 160/84
--- NOTE | 2017-05-04 10:57 | PN- General Surgery ---
Subjective Subjective: PT SITTING IN CHAIR, NO COMPLAINTS OF PAIN OR NAUSEA. TOLERATING REG DIET. PER NURSING DOCUMENTATION HAD BOWEL MOVEMENT THIS AM. VOIDING, OBANDO WAS DCed YESTERDAY. DENIES CP/SOB. PHYSICAL THERAPY WAS ORDERED YESTERDAY Objective Vital Signs and I&Os Vital Signs Date Time Temp Pulse Resp B/P B/P Pulse O2 O2 Flow FiO2 Mean Ox Delivery Rate 05/04 0908 80 160/84 05/04 0800 Room Air 05/04 799 98.5 80 20 160/84 95 Room Air 05/04 0000 97.6 80 24 140/80 92 Room Air 05/04 0000 92 Room Air 05/03 2200 130/70 05/03 2200 130/70 05/03 1600 94 Room Air 05/03 1600 98.4 82 18 126/70 94 Room Air Intake & Output 05/04 1600 05/04 0800 05/04 0000 05/03 1600 05/03 0805/03 0000 Intake Total 50 110 159 923 9599 Output Total 450 275 560 420 Balance -400 -165 780 160 660 Intake, IV 300 600 600 Intake, Oral 50 110 480 120 480 Number 1 0 Bowel Movements Output, 10 20 Drainage Output, Stool 0 Output, Urine 450 275 550 400 Patient 200 lb Weight Physical Exam: GEN-NAD RESP-CLEAR CARDIO-RRR ABD-OBESE, +BS, SOFT, NONTENDER. INCISIONS CLEAN AND DRY. DRY DRESSING OVER OLD DRAIN SITE Results Last 48 Hours of Labs: Laboratory Tests 05/04 05/03 0430 0525 Chemistry Sodium (137 - 145 mmol/L) 137 137 Potassium (3.5 - 5.1 mmol/L) 3.9 4.0 Chloride (98 - 107 mmol/L) 103 100 Carbon Dioxide (22 - 30 mmol/L) 27 28 Anion Gap (5 - 16) 8 8 BUN (9 - 20 mg/dL) 13 13 Creatinine (0.7 - 1.2 mg/dL) 0.8 0.8 Estimated GFR (>60 ml/min) > 60 > 60 BUN/Creatinine Ratio (7 - 25 %) 16.3 16.3 Hematology CBC w Diff NO MAN DIFF REQ NO MAN DIFF REQ WBC (4.8 - 10.8 /CUMM) 8.2 9.5 RBC (4.70 - 6.10 /CUMM) 4.31 L 4.19 L Hgb (14.0 - 18.0 G/DL) 12.8 L 12.6 L Hct (42 - 52 %) 38.4 L 37.6 L MCV (80.0 - 94.0 FL) 89.1 89.8 MCH (27.0 - 31.0 PG) 29.7 30.1 MCHC (33.0 - 37.0 G/DL) 33.3 33.5 RDW (11.5 - 14.5 %) 13.8 14.2 Plt Count (130 - 400 /CUMM) 175 143 MPV (7.4 - 10.4 FL) 8.3 8.5 Gran % (42.2 - 75.2 %) 81.1 H 83.7 H Lymphocytes % (20.5 - 51.1 %) 13.1 L 10.4 L Monocytes % (1.7 - 9.3 %) 4.4 4.6 Eosinophils % (0 - 5 %) 1.1 1.0 Basophils % (0.0 - 2.0 %) 0.3 0.3 Absolute Granulocytes (1.4 - 6.5 /CUMM) 6.7 H 7.9 H Absolute Lymphocytes (1.2 - 3.4 /CUMM) 1.1 L 1.0 L Absolute Monocytes (0.10 - 0.60 /CUMM) 0.4 0.4 Absolute Eosinophils (0.0 - 0.7 /CUMM) 0.1 0.1 Absolute Basophils (0.0 - 0.2 /CUMM) 0 0 Assessment/Plan Assessment/Plan POD3 sp lap fidel for acute cholecystitis, HX of severe aortic stenosis with cad sp cabg, htn, dementia. stable with pain managed and return of bowel function reg diet I&Os stable, ok to transfer out of ICU physical therapy DC planning- will likely need SNF, possibly DC later today or tomorrow Will skyler Mejía Core Measures Venous Thromboembolism VTE Risk Factors Age>40 No Mechanical VTE Prophylaxis d/t N/A MechProphylax Ordered No VTE Pharm Prophylaxis d/t NA PharmProphylax ordered
[2017-05-04 16:00] VITALS: BP 140/70
--- NOTE | 2017-05-04 16:00 | PN- General Surgery ---
Surgical Brief Attending Note Brief Attending Note: Patient comfortable. tolerating diet. bowel function. stable for discharge
[2017-05-05] VITALS: BP 134/76
[2017-05-05 08:00] VITALS: BP 166/84
--- NOTE | 2017-05-05 09:08 | PN- General Surgery ---
Surgical Brief Attending Note Brief Attending Note: PATIENT READY FOR DISCHARGE TO [facility].
--- NOTE | 2017-05-05 09:35 | Surgical Discharge Summary ---
Visit Information Visit Dates Admission Date: 05/01/17 Discharge Date: 05/05/17 History of Present Illness Chief Complaint: ABDOMINAL PAIN Medical History Blood Transfusion Hx: Yes Neurological: Alzheimer's disease EENT: NONE Cardiovascular: aortic stenosis, CAD, hypertension, hyperlipidemia, QUAD BYPASS 70% CAROTID ARTERY OCCLUS CHRONIC EDEMA RBBB Respiratory: NONE Gastrointestinal: diverticulosis Hepatic: NONE Renal: benign prost hyperplasia, URINARY RETENTION Musculoskeletal: NONE Psychiatric: NONE Endocrine: obesity, pre-DM Blood Disorders: vasculitis BACTEREMIA PVD Cancer(s): NONE BATTER SCALER/Reproductive: NONE History of MRSA: Yes History of VRE: No History of CDIFF: No Isolation History: Contact Influenza Vaccine: 12/25/16 Surgical History Pertinent Surgical History: CABG ( 10 YRS AGO), cholecystectomy, QUAD BYPASS Family History Relations & Conditions If Any: SON, , Age 30-40. Relation not specified for: FH: leukemia Psychosocial History Who Do You Live With? Daughter Services at Home: Home Health Aide What is Your Primary Language? Nauruan Review of Systems: SEE PREOP HP Hospital Course Course Attending Physician: Vasquez Mejía MD Primary Care Physician: Obinna Cobms MD Hospital Course: Patient was admitted to surgical service for IV antibiotics and treatment of acute cholecystitis. He was seen by his automatic oven operator who is at high risk given his aortic stenosis. However he felt that nonoperative management was not ideal patient should proceed with surgery given his functional status. Patient was taken to the OR for laparoscopic cholecystectomy. Please see operative note for details. He did well after surgery, was stable from a cardiovascular standpoint. Temperature discharge he is tolerating a diet but was not back to his ambulatory status. Allergies: Coded Allergies: Antihistamines - Alkylamine (UNKNOWN 04/30/17) Significant Procedures: Laparoscopic cholecystectomy Disposition Summary Disposition Principal Diagnosis: Acute Cholecystitis Additional Diagnosis: Aortic stenosis Discharge Disposition: SNF Discharge Instructions General Discharge Information Code Status: Full Code Patient's Diet: Regular low-fat Patient's Activity: No lifting greater than 20 pounds Follow-Up Instructions/Appts: 2 weeks Copies To: Obinna Combs MD
[2017-05-05] MEDS ORDERED: TYLENOL EXTRA500 M2 PO (12:49)
[2017-05-05] MEDS ORDERED: DOCUSATE SODIU100 M3 PO (12:49)
[2017-05-05] MEDS ORDERED: OXYCODONE HCL5 M1 PO (12:49)
[2017-05-05] MEDS ORDERED: OXYCODONE HCL10 M2 PO (12:49)
--- NOTE | 2017-05-05 12:52 | Patient Discharge Instructions ---
Discharge Instructions General Discharge Information You were seen/treated for: Acute cholecystitis You had these procedures: Surgery Date: 05/01/17 Name of Procedure: Laparoscopic cholecystectomy Watch for these problems: FEVER>101.3, INCREASED PAIN, REDNESS/SWELLING/DRAINAGE, SHORTNESS OF BREATH, CHEST PAINS, DIZZINESS No bath, but you may shower: Yes Other wound care: OK TO SHOWER. LEAVE WHITE STERI STRIPS IN PLACE. KEEP INCISIONS CLEAN & DRY. Diet Continue normal diet: Yes Recommended Diet: Heart Healthy, Low Fat Activity Full Activity/No Limits: No Activity Self Limited: Yes Pounds, do NOT lift more than: 20 Activity Limited to: Walking with Assistance Other activity limits: TOLERATED Acute Coronary Syndrome Inclusion Criteria At DC or during hospital stay patient has or had the following: ACS DIAGNOSIS No Discharge Core Measures Meds if any: Prescribed or Continued at Discharge Meds if any: NOT Prescribed or Continued at Discharge Congestive Heart Failure Inclusion Criteria At DC or during hospital stay patient has or had the following: CHF DIAGNOSIS No Discharge Core Measures Meds if any: Prescribed or Continued at Discharge Meds if any: NOT Prescribed or Continued at Discharge Cerebrovascular accident Inclusion Criteria At DC or during hospital stay patient has or had the following: CVA/TIA Diagnosis No Discharge Core Measures Meds if any: Prescribed or Continued at Discharge Meds if any: NOT Prescribed or Continued at Discharge Venous thromboembolism Inclusion Criteria VTE Diagnosis No VTE Type NONE VTE Confirmed by (Test) NONE Discharge Core Measures - Per Current guidelines, there needs to be overlap - treatment for the first 5 days of Warfarin therapy. - If discharged on Warfarin prior to 5 days of - overlap therapy, the patient will need to be - assessed for post discharge needs including - *Post discharge parental anticoagulation - *Warfarin and/or parental anticoagulation education - *Follow up date to check INR post discharge At least 5 days overlap therapy as Inpatient No Meds if any: Prescribed or Continued at Discharge Note: Overlap Therapy is Warfarin and Anticoagulant Meds if any: NOT Prescribed or Continued at Discharge
[2017-05-05 13:17] VITALS: BP 132/84; BP 166/84
== END 2017-05-05 15:10 | DRG 418 ==
LOC: ERH 22:59 → ERHI 05-01 02:27 → 2NA 05-01 02:27 → ERHI 05-01 02:27 → EDBEDREQ 05-01 03:35 → ENRESERV 05-01 09:30 → ENTRNSPT 05-01 10:09 → EDTRNSPT 05-01 10:09 → EDTRNSPTSTS 05-01 10:21 → CRI 05-01 10:26 → 2NA 05-01 10:27 → CMPTRNSPT 05-01 10:43 → ENRESERV 05-01 18:50 → CRI 05-01 18:56
PROVIDERS: Internal Medicine Endocrinology, Diabetes & Metabolism; Physician Assistant Medical; Physician Assistant Surgical
PROC: 0FT44ZZ Resection of Gallbladder, Percutaneous Endoscopic Approach (ICD-10-PCS; principal; 2017-05-01)
DX: K80.00 Calculus of gallbladder with acute cholecystitis without obstruction (principal); J84.9 Interstitial pulmonary disease, unspecified; I35.0 Nonrheumatic aortic (valve) stenosis; G30.9 Alzheimer's disease, unspecified; F02.80 Dementia in other diseases classified elsewhere, unspecified severity, without behavioral disturbance, psychotic disturbance, mood disturbance, and anxiety; I45.2 Bifascicular block; R31.0 Gross hematuria; E66.9 Obesity, unspecified; Z95.1 Presence of aortocoronary bypass graft; R73.03 Prediabetes; I25.10 Atherosclerotic heart disease of native coronary artery without angina pectoris; N40.1 Benign prostatic hyperplasia with lower urinary tract symptoms; R33.8 Other retention of urine; Z68.32 Body mass index [BMI] 32.0-32.9, adult; N32.89 Other specified disorders of bladder; E78.5 Hyperlipidemia, unspecified; I10 Essential (primary) hypertension
CPT/HCPCS: CCU; 36415; 71045; 74177; 81003; 82436; 87086; 87804; 87804-59; 93005; 93010; 93306; 96361; 96374; 97110-GO; 97112-GO; 97116-GO; 97161-GP; 97530-GO; C9399; J1644; J2405; J3010

== ENCOUNTER 2017-09-17 10:10 | Inpatient (IN) | payer OTHER, MEDICARE ==
[~2017-09-17] VITALS: Ht 167.6 cm; Wt 99.8 kg
[~2017-09-17 10:10] MED LIST changes: +DOCUSATE SODIU100 M3 PO; +OXYCODONE HCL10 M2 PO; +OXYCODONE HCL5 M1 PO; +TYLENOL EXTRA500 M2 PO
--- NOTE | 2017-09-17 11:50 | ED UPPER/LOWER EXTREMITY COMPL ---
History of Present Illness General Chief Complaint: Lower Extremity Injury Stated Complaint: FOOT PAIN Source: patient, family Exam Limitations: dementia Vital Signs & Intake/Output Vital Signs & Intake/Output Vital Signs Date Time Temp Pulse Resp B/P B/P Pulse O2 O2 Flow FiO2 Mean Ox Delivery Rate 09/17 1315 97.6 63 18 138/62 95 Room Air Room Air 09/17 1014 97.7 65 20 128/69 96 Room Air Allergies Coded Allergies: Antihistamines - Alkylamine (UNKNOWN 04/30/17) Reconcile Medications Acetaminophen (Tylenol Extra Strength) 500 MG TABLET 1 TAB PO Q6-8P PRN PAIN CONTROL ANY SCALE Aspirin (Ecotrin*) 81 MG TABLET.DR 1 TAB PO DAILY HEART/BLOOD (Reported) NOT GIVEN IN HOSPITAL Atorvastatin Calcium (Lipitor) 20 MG TABLET 1 TAB PO DAILY CHOLESTEROL ( Reported) Clonidine HCl 0.1 MG TABLET 1 TAB PO DAILY HTN (Reported) Cyanocobalamin (Vitamin B-12) 1,000 MCG TABLET 1 TAB PO DAILY SUPPLEMENT ( Reported) Docusate Sodium 100 MG CAPSULE 100 MG PO BID PRN CONSTIPATION Finasteride 5 MG TABLET 1 TAB PO DAILY PROSTATE (Reported) Folic Acid 1 MG TABLET 1 TAB PO DAILY SUPPLEMENT (Reported) Furosemide (Lasix) 40 MG TABLET 1 TAB PO EOD DIURETIC (Reported) Memantine HCl (Namenda) 10 MG TABLET 1 TAB PO BID MEMORY (Reported) Metoprolol Tartrate 25 MG TABLET 1 TAB PO BID HTN (Reported) Nystatin (Nyamyc) 100,000 UNIT/GRAM POWDER 1 FALLON TOP AD PRN UNKNOWN (Reported ) Omeprazole 40 MG CAPSULE.DR 1 CAP PO DAILY GI (Reported) Oxycodone HCl 5 MG TABLET 5 MG PO Q4 HRS NEEDED PRN PAIN SCALE 4-6 ( MODERATE) Oxycodone HCl 10 MG TABLET 10 MG PO Q4 HRS NEEDED PRN PAIN SCALE 7-10 ( SEVERE) Polyethylene Glycol 3350 (Miralax) 17 GRAM POWD.PACK 1 PAC PO DAILY PRN GI ( Reported) dissolve in water Potassium Chloride (K-Tab ER) 10 MEQ TABLET.ER 1 TAB PO DAILY SUPPLEMENT ( Reported) Selenium Sulfide 2.5 % SHAMPOO 1 FALLON TOP BID ABD & LEGS (Reported) Sennosides (Senna) 8.6 MG TABLET 1 TAB PO Monday GI (Reported) Tamsulosin HCl (Flomax) 0.4 MG CAP.ER.24H 1 CAP PO DAILY BPH (Reported) Trazodone HCl 50 MG TABLET 1 TAB PO BID UNKNOWN (Reported) Triamcinolone Acetonide 0.1 % OINT...G. 1 FALLON TOP AD PRN ABD & LEGS (Reported ) apply to affected area(s) Triamcinolone Acetonide 0.1 % OINT...G. 1 FALLON TOP BID dermatis apply to affected area(s) Triage Note: PT BIBA FROM [facility]. STATES HE BUMPED LEFT FOOT/ANKLE LAST NIGHT AND NOW HAVING DIFFICULTY BEARING WEIGHT. AREA APPEARS SWOLLEN. Triage Nurses Notes Reviewed? yes Onset: UNCLEAR Duration: day(s):, changing over time Timing: single episode today Severity: moderate Pain/Injury Location: Left: Ankle. Method of Injury: unknown No Modifying Factors: none Modifying Factors: Improves With: rest. Worsens With: movement. Associated Symptoms: swelling, redness HPI: PLEASEANT 87 YEAR OLD [place] WITH HX/O DEMENTIA PRESENTS TO ED WITH LEFT ANKLE SWELLING AND INABILITY TO BEAR WEIGHT. HE HAS NO KNOWN MECHANISM OF INJURY. LIVES IN [facility]. DAUGHTER AT BEDSIDE PROVIDING HX THAT HE HAS NOT BEEN ABLE TO WALK MUCH. PEOPLE AT HIS FACILITY CANNOT LIFT HIM EITHER AND HE HAS HAD INTERMITTENT PAIN. DAUGHTER IS CONCERNED ABOUT POSSIBLE BLOOD CLOT. (Johnny LICEA,Deloris) Past History Travel History Traveled to [place] past 21 day No Medical History Any Pertinent Medical History? 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 CHRONIC EDEMA RBBB Respiratory: NONE Gastrointestinal: diverticulosis Hepatic: NONE Renal: benign prost hyperplasia, URINARY RETENTION Musculoskeletal: NONE Psychiatric: NONE Endocrine: obesity, pre-DM Blood Disorders: vasculitis BACTEREMIA PVD Cancer(s): NONE POLICE CHIEF/Reproductive: NONE History of MRSA: Yes History of VRE: No History of CDIFF: No Influenza Vaccine: 12/25/16 Surgical History Surgical History: CABG ( 10 YRS AGO), cholecystectomy, QUAD BYPASS Psychosocial History Who do you live with Daughter Services at Home Home Health Aide What is your primary language Yakut Tobacco Use: Quit >30 days ago ETOH Use: denies use Illicit Drug Use: denies illicit drug use Family History Family History, If Any: SON, , Age 30-40. Relation not specified for: FH: leukemia Hx Contributory? No (Deloris Turner PA-C) Review of Systems Review of Systems Constitutional: Denies: no symptoms, see HPI, chills, unexplained weight loss. EENTM: Denies: no symptoms. Respiratory: Denies: cough, hemoptysis, orthopnea, short of breath. Cardiovascular: Reports: edema. Denies: chest pain, orthopena, palpitations. Gastrointestinal/Abdominal: Denies: abdominal pain, constipation, diarrhea. Genitourinary: Denies: no symptoms. Musculoskeletal: Reports: joint pain, joint swelling. Skin: Reports: see HPI. Neurological/Psychological: Reports: dementia. Denies: paresthesia, tingling, tremors. Hematologic/Endocrine: Reports: bruising. Immunological: Denies: no symptoms. All Other Systems: Reviewed and Negative (Deloris Turner PA-C) Physical Exam Physical Exam General Appearance: well developed/nourished, no apparent distress, alert, awake , comfortable Head: atraumatic, normal appearance Eyes: Bilateral: normal appearance, PERRL, EOMI. Ears, Nose, Throat: normal pharynx, normal ENT inspection Neck: normal inspection Cardiovascular/Respiratory: normal breath sounds, no respiratory distress Leg Left: swelling, tenderness, ecchymosis, evidence of injury, soft tissue tenderness Lower Extremity Reflexes: 1+: ankle (L). Neurologic/Tendon: normal sensation, normal motor functions Skin: ecchymosis (Deloris Turner PA-C) Progress Differential Diagnosis: sprain Plan of Care: Orders Procedure Date/time Status Regular Diet 09/17 D Active Patient Data 09/17 1351 Active OXYGEN SETUP (GEN) 09/17 1335 Active Saline Lock 09/17 1335 Active Admit to inpatient 09/17 1335 Active Vital Signs 09/17 1335 Active Activity/Ambulation 09/17 1335 Active Code Status 09/17 1335 Active PT Evaluate & Treat 09/17 1237 Active TROPONIN LEVEL 09/17 1234 Complete COMPREHENSIVE METABOLIC PANEL 09/17 1234 Complete CBC WITHOUT DIFFERENTIAL 09/17 1234 Complete B-TYPE NATRIURETIC PEP (BNP) 09/17 1234 Complete Laboratory Tests 09/17/17 1241: Anion Gap 9, Estimated GFR > 60, BUN/Creatinine Ratio 18.6, Glucose 179 H, Calcium 8.6, Total Bilirubin 1.5 H, AST 17, ALT 27, Alkaline Phosphatase 125, Troponin I < 0.01, Pzb-R-Buqiwyxkzjj Pept 351 H, Total Protein 6.6, Albumin 3.4 L, Globulin 3.2, Albumin/Globulin Ratio 1.1, CBC w Diff NO MAN DIFF REQ, RBC 4.77, MCV 86.5, MCH 29.4, MCHC 34.0, RDW 13.6, MPV 8.2, Gran % 64.5, Lymphocytes % 25.5, Monocytes % 7.7, Eosinophils % 2.0, Basophils % 0.3, Absolute Granulocytes 5.4, Absolute Lymphocytes 2.1, Absolute Monocytes 0.6, Absolute Eosinophils 0.2, Absolute Basophils 0 1204: X RAYS OF FOOT AND ANKLE ARE NEGATIVE FOR FRACTURE. DAUGHTER IS CONCERNED ABOUT HIS ABILITY TO WEIGHT BEAR AND NEED FOR HIGHER LEVEL OF CARE. DOPPLER STILL PENDING 1337: Doppler US negative for DVT. PT Eval pending. Will ask for admission so that patient can go to higher level of care (inpt rehab). Comments: Unable to get patient out of bed to weight bear. PT eval ordered. Will likely need admission to get to inpatient rehab. (Deloris Turner PA-C) Departure Departure Disposition: STILL A PATIENT Condition: Stable Clinical Impression Primary Impression: Ankle injuries Secondary Impressions: Multifactorial gait disorder Referrals: Obinna Combs MD (PCP/Family) Departure Forms: Customer Survey General Discharge Information Comments Patient lives at [facility]. He is NOT safe to return. Needs a higher level of care for safety. Fall risk. Will need inpatient rehab. Will need admission. Admission Note Spoke With: Efren Jolley MD Documentation of Exam: Documentation of any treatments & extenuating circumstances including Concerns Regarding Discharge (functional status, medication knowledge or non-compliance, living conditions, etc.) that warrant an admission rather than observation: (Deloris Turner PA-C) PA/IT QUALITY ANALYST Co-Sign Statement Statement: ED Attending supervision documentation- x I saw and evaluated the patient. I have also reviewed all the pertinent lab results and diagnostic results. I agree with the findings and the plan of care as documented in the PA's/IT QUALITY ANALYST's documentation. Ankle sprain, unable to ambulate or return to assisted living [] I have reviewed the ED Record and agree with the PA's/IT QUALITY ANALYST's documentation. [] Additions or exceptions (if any) to the PAs/IT QUALITY ANALYST's note and plan are summarized below: [] (Maikol MCMILLAN,Mj)
--- NOTE | 2017-09-17 11:56 | RADIOLOGY REPORT ---
EXAMINATION: LEFT FOOT AND ANKLE RADIOGRAPHS CLINICAL INFORMATION: Pain COMPARISON: None TECHNIQUE: 3 views of the left ankle 3 views of the left foot FINDINGS: Ankle: Generalized osteopenia. No evidence of acute fracture. Alignment is anatomic. The ankle mortise is congruent. There is mild diffuse soft tissue swelling of the ankle. Vascular calcifications are noted. Foot: Generalized osteopenia. No evidence of acute fracture. No malalignment. Scattered degenerative changes most pronounced at the first MTP joint with bony bunion. Osseous spurring of the anterior talus. Soft tissue swelling of the dorsum of the foot. IMPRESSION: No evidence of acute fracture or malalignment of the left ankle or foot. Generalized osteopenia. Mild soft tissue swelling. Mild degenerative changes as noted above.
--- NOTE | 2017-09-17 12:19 | ULTRASOUND REPORT ---
EXAMINATION: US TRIPLEX LOWER EXTREMITY, LEFT CLINICAL INFORMATION: Left lower extremity swelling COMPARISON: None TECHNIQUE: Color-flow triplex imaging with spectral analysis and compression Doppler were performed on the lower extremity. FINDINGS: Respiratory variation, normal compression and augmented flow are noted throughout the lower extremity. The visualized common femoral vein, superficial femoral vein, profunda femoral vein, popliteal vein and midcalf peroneal and posterior tibial venous segments show no evidence of deep venous thrombosis. There is no Hampton's cyst. IMPRESSION: No evidence of deep venous thrombosis involving the lower extremity.
[2017-09-17 12:55] LABS: ABSOLUTE BASOPHIL COUNT 0 /CUMM (0.0-0.2); ABSOLUTE EOSINOPHIL COUNT 0.2 /CUMM (0.0-0.7); ABSOLUTE GRANULOCYTE CT 5.4 /CUMM (1.4-6.5); ABSOLUTE LYMPH COUNT 2.1 /CUMM (1.2-3.4); ABSOLUTE MONOCYTE COUNT 0.6 /CUMM (0.10-0.60); BASOPHIL % 0.3 % (0.0-2.0); GRANULOCYTE % 64.5 % (42.2-75.2); HEMATOCRIT 41.3 % (42-52); MEAN CORPUSCULAR HGB 29.4 PG (27.0-31.0); MEAN CORPUSCULAR VOLUME 86.5 FL (80.0-94.0); MEAN PLATELET VOLUME 8.2 FL (7.4-10.4); PLATELET COUNT 189 /CUMM (130-400); RBC DISTRIBUTION WIDTH 13.6 % (11.5-14.5); RED BLOOD CELL CT 4.77 /CUMM (4.70-6.10); WHITE BLOOD CELL COUNT 8.4 /CUMM (4.8-10.8)
--- NOTE | 2017-09-17 13:56 | History & Physical ---
General Information and HPI MD Statement: I have seen and personally examined HELENA MCFARLANE and documented this H&P. The patient is a 87 year old M who presented with a patient stated chief complaint of [Lower Extremity Injury, difficulty ambulating]. Source of Information: patient, family, old records Exam Limitations: unable to give history, dementia History of Present Illness: The patient is unable to provide history given advanced dementia, all the history was obtained from the daughter at bedside. 86-year-old male with past medical history significant for alzeihmers dementia, CAD s/p 4 vessel CABG 11 years ago, severe aortic stenosis, HTN, HLD, BPH, GERD, diverticulosis, who presented to ED with CC of left ankle swelling and inability to bear weight. The patient is living at assisting care facility, he was noticed to have left ankle swelling yesterday with pain and inability to bear weight. The patient has severe advanced dementia and he cannot provide if he twisted his ankle or had any falls. At baseline he ambulates using a walker but currently he is unable to do so. He was sent to the ED for further evaluation. Allergies/Medications Allergies: Coded Allergies: Antihistamines - Alkylamine (UNKNOWN 04/30/17) Home Med list Aspirin (Ecotrin*) 81 MG TABLET.DR 1 TAB PO DAILY HEART/BLOOD (Reported) NOT GIVEN IN HOSPITAL Atorvastatin Calcium (Lipitor) 20 MG TABLET 1 TAB PO DAILY CHOLESTEROL ( Reported) Clonidine HCl 0.1 MG TABLET 1 TAB PO DAILY HTN (Reported) Cyanocobalamin (Vitamin B-12) 1,000 MCG TABLET 1 TAB PO DAILY SUPPLEMENT ( Reported) Finasteride 5 MG TABLET 1 TAB PO DAILY PROSTATE (Reported) Folic Acid 1 MG TABLET 1 TAB PO DAILY SUPPLEMENT (Reported) Furosemide (Lasix) 40 MG TABLET 1 TAB PO EOD DIURETIC (Reported) Furosemide (Lasix) 80 MG TABLET 1 TAB PO EOD DIURETIC (Reported) Memantine HCl (Namenda) 10 MG TABLET 1 TAB PO BID MEMORY (Reported) Metoprolol Tartrate 25 MG TABLET 12.5 MG PO BID HTN (Reported) Omeprazole 40 MG CAPSULE.DR 1 CAP PO DAILY GI (Reported) Polyethylene Glycol 3350 (Miralax) 17 GRAM POWD.PACK 1 PAC PO DAILY PRN GI ( Reported) dissolve in water Potassium Chloride (K-Tab ER) 10 MEQ TABLET.ER 1 TAB PO DAILY SUPPLEMENT ( Reported) Selenium Sulfide 2.5 % SHAMPOO 1 FALLON TOP BID ABD & LEGS (Reported) Sennosides (Senna) 8.6 MG TABLET 1 TAB PO Monday GI (Reported) Tamsulosin HCl (Flomax) 0.4 MG CAP.ER.24H 1 CAP PO DAILY BPH (Reported) Trazodone HCl 50 MG TABLET 1 TAB PO BID UNKNOWN (Reported) Past History Travel History Traveled to [place] past 21 day No Medical History Neurological: Alzheimer's disease EENT: NONE Cardiovascular: aortic stenosis, CAD, hypertension, hyperlipidemia, QUAD BYPASS 70% CAROTID ARTERY OCCLUS CHRONIC EDEMA RBBB Respiratory: NONE Gastrointestinal: diverticulosis Hepatic: NONE Renal: benign prost hyperplasia, URINARY RETENTION Musculoskeletal: NONE Psychiatric: NONE Endocrine: obesity, pre-DM Blood Disorders: vasculitis BACTEREMIA PVD Cancer(s): NONE MOBILE HOME TECHNICIAN/Reproductive: NONE History of MRSA: Yes History of VRE: No History of CDIFF: No Influenza Vaccine: 12/25/16 Surgical History Surgical History: CABG ( 10 YRS AGO), cholecystectomy, QUAD BYPASS Past Family/Social History Family History Relations & Conditions if any SON, , Age 30-40. Relation not specified for: FH: leukemia Psychosocial History Services at Home: Home Health Aide ETOH Use: denies use Illicit Drug Use: denies illicit drug use Review of Systems Review of Systems Constitutional: Denies: chills, diaphoresis, fever, weakness, unexplained weight loss. EENTM: Denies: visual changes, hearing changes. Cardiovascular: Reports: peripheral edema. Denies: chest pain, palpitations, syncope. Respiratory: Denies: cough, short of breath, wheezing. GI: Denies: abdominal pain, constipation, diarrhea, nausea, vomiting. Genitourinary: Reports: frequency. Denies: dysuria, hematuria. Musculoskeletal: Reports: joint pain, joint swelling. Denies: back pain, gout, muscle pain, muscle stiffness. Skin: Denies: erythema, lesions. Neurological/Psychological: Reports: dementia. Denies: headache, numbness, paresthesia, tingling. Hematologic/Endocrine: Reports: bruising (OVER LEFT ANKLE). Exam & Diagnostic Data Last 24 Hrs of Vital Signs/I&O Vital Signs Date Time Temp Pulse Resp B/P B/P Pulse O2 O2 Flow FiO2 Mean Ox Delivery Rate 09/17 1315 97.6 63 18 138/62 95 Room Air Room Air 09/17 1014 97.7 65 20 128/69 96 Room Air Intake & Output 09/17 1600 09/17 0800 09/17 0000 Intake Total Output Total Balance Patient 74.843 kg Weight Weight Reported by Patient Measurement Method Physical Exam General Appearance Alert, Cooperative, No Acute Distress, ORIENTED x2 Skin No Rashes HEENT Atraumatic, PERRLA, EOMI, Mucous Membr. moist/pink Neck No JVD Cardiovascular Regular Rate, Normal S1, Normal S2, 2/6 SYSTOLIC MURMUR BEST HEARD OVER AORTIC AREA Lungs Clear to Auscultation, Normal Air Movement Abdomen Normal Bowel Sounds, Soft, No Tenderness Neurological Normal Speech Extremities No Clubbing, No Cyanosis, +1 B/L LE EDEMA Last 24 Hrs of Labs/Mark: Laboratory Tests 09/17/17 1241: Anion Gap 9, Estimated GFR > 60, BUN/Creatinine Ratio 18.6, Glucose 179 H, Calcium 8.6, Total Bilirubin 1.5 H, AST 17, ALT 27, Alkaline Phosphatase 125, Troponin I < 0.01, Hwn-H-Ufissqjhuvg Pept 351 H, Total Protein 6.6, Albumin 3.4 L, Globulin 3.2, Albumin/Globulin Ratio 1.1, CBC w Diff NO MAN DIFF REQ, RBC 4.77, MCV 86.5, MCH 29.4, MCHC 34.0, RDW 13.6, MPV 8.2, Gran % 64.5, Lymphocytes % 25.5, Monocytes % 7.7, Eosinophils % 2.0, Basophils % 0.3, Absolute Granulocytes 5.4, Absolute Lymphocytes 2.1, Absolute Monocytes 0.6, Absolute Eosinophils 0.2, Absolute Basophils 0 Assessment/Plan Assessment: 86-year-old male with past medical history significant for alzeihmers dementia, CAD s/p 4 vessel CABG 11 years ago, severe aortic stenosis, HTN, HLD, BPH, GERD, diverticulosis, who presented to ED with CC of left ankle swelling and inability to bear weight that was noticed yesterday. The patient has advanced dementia, he denies fall or trauma. Physical exam showed swelling and mild lateral inferior ecchymosis possibly consistent with twisted ankle. No erythema or warmth which makes inflammatory joint hour likely. He is unable to ambulate with a walker(able to do so at baseline). X-ray showed severe osteoporosis without acute fractures. Problem list: * Left ankle swelling without signs suggestive of inflammation or fracture on x- ray * Difficulty ambulating which most likely would require STIR * CAD s/p CABG 11 years ago * Severe * HTN/HLD * BPH * GERD * Advanced Alzheimer * Hx of cholecystectomy with mild elevated total bilirubin Plan: * Admit to general medicine * Leg elevation/pain medication when necessary * PT eval, will most likely require STIR * Consider ortho eval if no improvement by tomorrow * Consider arthrocentesis if erythema or warmth develop * We will continue all home medications -DVT PPx with ALPS and SC hep -Heart healthy diet -FC As Ranked By This Provider Problem List: 1. BPH 2. Ankle injuries Core Measures/Misc (12/11) Acute Coronary Syndrome ACS Diagnosis: No Congestive Heart Failure Congestive Heart Failure Diagnosis No Cerebrovascular Accident CVA/TIA Diagnosis: No VTE (View Protocol) VTE Risk Factors Age>40 No Mechanical VTE Prophylaxis d/t N/A MechProphylax Ordered No VTE Pharm Prophylaxis d/t NA PharmProphylax ordered Sepsis (View protocol) Sepsis Present: No If YES complete Sepsis Event Note If YES complete Sepsis Event Note
[2017-09-17] MEDS ORDERED: LASIX80 M1 PO (14:30)
--- NOTE | 2017-09-17 14:45 | PN- Att Addend ---
Attending Addendum Attending Brief Note 87M H donnie dementia, CAD s/p 4 vessel CABG 10 years ago, severe aortic stenosis, HTN, HLD, BPH, GERD, diverticulosis sent from assisted living after not being able to put weight on his left ankle for the past day. He denies fall or trauma, but there is apparent swelling and ecchymosis to the lateral left ankle consistent with traumatic injury. Walks with a walker at baseline but unable to do so due to pain. He has no complaints at rest and is asymptomatic; pain is only when bearing weight. X-rays were normal, labs reviewed. 1. Left ankle sprain 2. Unable to ambulate 3. History of CAD and severe Plan - Admit to general medicine - Leg elevation, ice, compression - Continue home medications - PT eval - Consider ortho eval if no improvement by tomorrow - DVT PPx - Will likely require STR
--- NOTE | 2017-09-17 14:45 | Admission Certification ---
Admission Certification Certification Statement - As attending physician, I certify that at the time of - admission, based on clinical presentation, severity of - symptoms, need for further diagnostic testing and - therapeutic interventions, and risk of adverse outcomes - without in-hospital treatment, in my clinical assessment, - this patient requires an acute hospital stay for a minimum - of two nights or longer. I have also considered psychsocial - factors such as support system, advanced age, financial - issues, cognitive issues, and failed out-patient treatments, - past re-admission history, safety of patient, and lack of - compliance as applicable. Specific rationale supporting this admission is: Unable to bear weight due to ankle sprain, lives at assisted living, will require physical therapy and orthopedic evaluation
[2017-09-17 16:27] VITALS: BP 130/70
[2017-09-17 21:24] VITALS: BP 142/78
[2017-09-18 06:13] VITALS: BP 140/84
--- NOTE | 2017-09-18 07:15 | PN- Housestaff ---
Subjective Follow-up For: left ankle pain with ambulation and weakness Subjective: patient is poor historian, offered no complaints ambulated with PT today Review of Systems Constitutional: Reports: see HPI. Objective Last 24 Hrs of Vital Signs/I&O Vital Signs Date Time Temp Pulse Resp B/P B/P Pulse O2 O2 Flow FiO2 Mean Ox Delivery Rate 09/18 09 68 140/68 09/18 09 68 140/68 09/18 09 68 140/68 09/18 0613 97.4 62 20 140/84 95 Room Air 09/17 2124 97.9 68 18 142/78 95 Room Air 09/17 1958 68 142/78 09/17 1627 97.7 60 18 130/70 95 Room Air 09/17 1548 Room Air 09/17 1519 97.8 63 20 138/64 95 Room Air 09/17 1315 97.6 63 18 138/62 95 Room Air Room Air Intake & Output 09/18 1600 09/18 0800 09/18 0000 Intake Total 60 700 Output Total 500 Balance 60 200 Intake, Oral 60 700 Output, Urine 500 Physical Exam General Appearance: Alert, Cooperative, No Acute Distress, oriented to self only Cardiovascular: Regular Rate, Normal S1, Normal S2, 3/6 systolic murmur RUSB Lungs: Clear to Auscultation, Normal Air Movement Abdomen: Normal Bowel Sounds, Soft, No Tenderness, No Masses Extremities: No Clubbing, No Cyanosis, No Edema, Normal Pulses, No Tenderness/ Swelling, mild left lateral ankle swelling, no bruising Current Medications: Current Medications Sig/Supa Start time Last Medication Dose Route Stop Time Status Admin Aspirin Buffered 81 MG DAILY 09/18 899 AC 09/18 PO 904 Atorvastatin Calcium 20 MG DAILY 09/18 899 AC 09/18 PO 09 Clonidine 0.1 MG DAILY 09/18 899 AC 09/18 PO 09 Cyanocobalamin 1,000 MCG DAILY 09/18 899 AC 09/18 PO 09 Finasteride 5 MG DAILY 09/18 899 AC 09/18 PO 09 Folic Acid 1 MG DAILY 09/18 899 AC 09/18 PO 09 Furosemide 80 MG Q48 09/19 0900 CAN PO Furosemide 40 MG Q48 09/18 899 AC 09/18 PO 09 Furosemide 40 MG .[EOD] 09/17 1500 DC PO Heparin Sodium 5,000 UNIT Q8 09/17 1453 AC 09/18 (Porcine) SC 0500 Memantine 10 MG BID 09/17 2100 AC 09/18 PO 0905 Metoprolol Tartrate 12.5 MG BID 09/17 2100 CAN PO Metoprolol Tartrate 12.5 MG BID 09/17 2100 AC 09/18 PO 0905 Omeprazole 40 MG DAILY AC 09/18 0700 AC 09/18 PO 0500 Patient Medication 1 ED ONE ONE 09/18 0915 DC Teaching ED 09/18 0916 Tamsulosin HCl 0.4 MG DAILY 09/18 0900 AC 09/18 PO 0905 Trazodone HCl 50 MG BID 09/17 2099 AC 09/18 PO 0904 Assessment/Plan Assessment: 86-year-old male with past medical history significant for alzheimers dementia, CAD s/p 4 vessel CABG 11 years ago, severe aortic stenosis, HTN, HLD, BPH, and GERD who presented with left ankle swelling and inability to bear weight. He currently lives at [facility] and uses a walker. Left ankle pain with weight bearing: Foot and ankle x-rays negative for any fractures, osteopenia, degenerative changes, and mild swelling Ambulated with PT today recommended home physical therapy, family wants STR and more nursing care Family is concerned about fall risk PO tylenol for analgesia Case management to discuss home PT vs STR with family and insurance coverage vs self pay CAD s/p CABG/Severe /HTN/HLD: Continue lasix, atorvastatin, clonidine, aspirin, and metoprolol BPH: Continue flomax and finasteride GERD: Continue PO PPI Dementia: Continue namenda Heart healthy diet DVT ppx-heparin sc Full code Discharge planning Problem List: 1. Multifactorial gait disorder 2. Ankle injuries Pain Ratin Pain Location: b/l ankles Pain Goal: Pain 4 or less Pain Plan: prn tylenol Tomorrow's Labs & Rationales: none
--- NOTE | 2017-09-18 07:57 | Discharge Summary ---
Visit Information Visit Dates Admission Date: 09/17/17 Discharge Date: 09/19/2015 Hospital Course Course Attending Physician: Scooter Diaz MD Primary Care Physician: Garret MCMILLAN,Obinna Kennedy Hospital Course: This is a 86-year-old male with past medical history significant for Alzheimer's dementia, coronary artery disease status post four-vessel CABG 11 years ago, severe aortic stenosis, hypertension, hyperlipidemia, BPH, GERD, diverticulosis presented to [place] emergency department with chief complaint of left ankle swelling and inability to bear weight since one day prior to admission. The patient himself was not able to provide any history as he has advanced dementia, it was not very clear if he twisted his ankle or had any falls on admission. At baseline he ambulated with a walker. His vitals at presentation was temperature of 97.7, pulse 65, respiration of 20, blood pressure 128/69, he was saturating 96% on room air Relevant labs he did not have a white count, H/H of 14.0/41.3, platelets of 189, electrolytes were within normal limits, BUN/creatinine 30/0.7, glucose of 179, calcium of 8.6, bilirubin of 1.5 (total), liver function tests within normal limits, troponin I negative, proBNP 351, low albumin at 3.4. He was admitted to general medicine floor for the treatment of following problems. Problem #1 left ankle swelling/inability to bear weight, acute fracture ruled out - left leg sprain. * An x-ray of the left ankle was done in order to evaluate the swelling and the pain and it did not show any acute fracture or any signs suggestive of inflammation. * Leg elevation, PT evaluation along with pain management was carried out. Ice compressions were continued. * Foot and ankle x-ray showed osteopenia, degenerative changes, patient was ambulated with physical therapy who recommended home physical therapy. * He was discharged with home physical therapy, while being continued on all his home medications. * There was a slight concern about discharge to home with physical therapy, however as patient's deficits were not different from his baseline, eventually it was decided to send him home with physical therapy Heart healthy diet. DVT prophylaxis with heparin. Full code Allergies: Coded Allergies: Antihistamines - Alkylamine (UNKNOWN 04/30/17) Significant Procedures: SERVICE DATE: 09/17/17-1051 EXAM TYPE: RAD - XRY-ANKLE 3 OR MORE VIEWS L; XRY-FOOT COMPLETE, LEFT EXAMINATION: LEFT FOOT AND ANKLE RADIOGRAPHS CLINICAL INFORMATION: Pain COMPARISON: None TECHNIQUE: 3 views of the left ankle 3 views of the left foot FINDINGS: Ankle: Generalized osteopenia. No evidence of acute fracture. Alignment is anatomic. The ankle mortise is congruent. There is mild diffuse soft tissue swelling of the ankle. Vascular calcifications are noted. Foot: Generalized osteopenia. No evidence of acute fracture. No malalignment. Scattered degenerative changes most pronounced at the first MTP joint with bony bunion. Osseous spurring of the anterior talus. Soft tissue swelling of the dorsum of the foot. IMPRESSION: No evidence of acute fracture or malalignment of the left ankle or foot. Generalized osteopenia. Mild soft tissue swelling. Mild degenerative changes as noted above. SERVICE DATE: 09/17/17 EXAM TYPE: US - US-UNILATERAL VENOUS DOPPLER EXAMINATION: US TRIPLEX LOWER EXTREMITY, LEFT CLINICAL INFORMATION: Left lower extremity swelling COMPARISON: None TECHNIQUE: Color-flow triplex imaging with spectral analysis and compression Doppler were performed on the lower extremity. FINDINGS: Respiratory variation, normal compression and augmented flow are noted throughout the lower extremity. The visualized common femoral vein, superficial femoral vein, profunda femoral vein, popliteal vein and midcalf peroneal and posterior tibial venous segments show no evidence of deep venous thrombosis. There is no Hampton's cyst. IMPRESSION: No evidence of deep venous thrombosis involving the lower extremity. Disposition Summary Disposition Principal Diagnosis: # Left leg sprain #CAD s/p CABG/Severe /HTN/HLD: Additional Diagnosis: #BPH #GERD #Dementia Discharge Disposition: home or self care Discharge Instructions General Discharge Information Code Status: Full Code Patient's Diet: heart healthy diet Patient's Activity: as tolerated. Follow-Up Instructions/Appts: Please follow up with your primary care physician. You had an x-ray of the left leg and foot which were negative for any fractures. You will need to do home physical therapy to increase your strength and ability to walk well. Medications at Discharge Discharge Medications: Continue taking these medications: Cyanocobalamin (Vitamin B-12) 1,000 MCG TABLET 1 Tablet ORAL DAILY Comments: Last Taken: 09/18/17 Time: 0900 AM Metoprolol Tartrate (Metoprolol Tartrate) 25 MG TABLET 12.5 Milligram ORAL TWICE DAILY Comments: Last Taken: 09/18/17 Time: 0900 AM Memantine HCl (Namenda) 10 MG TABLET 1 Tablet ORAL TWICE DAILY Comments: Last Taken: 09/18/17 Time: 0900 AM Trazodone HCl (Trazodone HCl) 50 MG TABLET 1 Tablet ORAL TWICE DAILY Comments: NOT GIVEN IN HOSPITAL Atorvastatin Calcium (Lipitor) 20 MG TABLET 1 Tablet ORAL DAILY Comments: Last Taken: 09/18/17 Time: 0900 AM Clonidine HCl (Clonidine HCl) 0.1 MG TABLET 1 Tablet ORAL DAILY Comments: Last Taken: 09/18/17 Time: 0900 AM Finasteride (Finasteride) 5 MG TABLET 1 Tablet ORAL DAILY Comments: Last Taken: 09/18/17 Time: 0900 AM Folic Acid (Folic Acid) 1 MG TABLET 1 Tablet ORAL DAILY Comments: Last Taken: 09/18/17 Time: 0900 AM Aspirin (Ecotrin*) 81 MG TABLET.DR 1 Tablet ORAL DAILY Comments: Last Taken: 09/18/17 Time: 0900 AM Tamsulosin HCl (Flomax) 0.4 MG CAP.ER.24H 1 Capsule ORAL DAILY Comments: Last Taken: 09/18/17 Time: 0900 AM Selenium Sulfide (Selenium Sulfide) 2.5 % SHAMPOO 1 Application On the skin TWICE DAILY Comments: Last Taken:NOT GIVEN IN THE HOSPITAL Time: Polyethylene Glycol 3350 (Miralax) 17 GRAM POWD.PACK 1 Packet ORAL DAILY as needed for GI Instructions: dissolve in water Comments: Last Taken:NOT GIVEN IN THE HOSPITAL Time: Sennosides (Senna) 8.6 MG TABLET 1 Tablet ORAL MONDAY, MONDAY AND MONDAY Comments: NOT GIVEN IN HOSPITAL Omeprazole (Omeprazole) 40 MG CAPSULE.DR 1 Capsule ORAL DAILY Comments: Last Taken: 09/18/17 Time: 0900 AM Furosemide (Lasix) 40 MG TABLET 1 Tablet ORAL Every other day Comments: Last Taken: 09/18/17 Time: 0900 AM Potassium Chloride (K-Tab ER) 10 MEQ TABLET.ER 1 Tablet ORAL DAILY Comments: NOT GIVEN IN HOSPITAL Furosemide (Lasix) 80 MG TABLET 1 Tablet ORAL Every other day Comments: NOT GIVEN IN HOSPITAL Start taking the following new medications: Acetaminophen (Tylenol) 325 MG TABLET 2 Tablet ORAL Q6H as needed for PAIN Qty = 30 No Refills Comments: Last Taken: 09/18/17 Time: 1600 PM Copies To: Garret MCMILLAN,Obinna Kennedy
--- NOTE | 2017-09-18 13:26 | PN- Att Addend ---
Attending Addendum Attending Brief Note Patient seen and examined. Unable to obtain any significant history from patient due to dementia. Currently not in any obvious pain He was brought to the ER for evaluation by her daughter yesterday with complaints of inability ambulating and pain in the left ankle. Imaging reveals no acute pathology. He does have mild degenerative changes. On examination he does not appear to be in any acute distress. He has mild swelling of the left ankle. There is some firmness over the left medial ankle. No ecchymotic areas noted. No open areas noted. No tenderness on exam. Patient was evaluated by the physical therapy service today. During that evaluation they noted him to be with decreased strength and balance and endurance leading to some impairment of functional mobility. It is unclear what his baseline is. Deficits are likely secondary to dementia per thier evaluation. They are recommending discharge home with home physical therapy. Dr. mauricio would like patient to be discharged to [facility] facility. She is concerned about the patient's safety at home. Patient's swelling and pain in the related to sprain of the ankle. No evidence of any acute bony process at present. He appears to require physical therapy to help with his mobility. Will follow up with the case management service and the patient's family regarding disposition for these services.
[2017-09-18 14:27] VITALS: BP 120/70
--- NOTE | 2017-09-18 16:00 | Patient Discharge Instructions ---
Discharge Instructions General Discharge Information You were seen/treated for: left ankle sprain Special Instructions: Please follow up with your primary care physician. You had an x-ray of the left leg and foot which were negative for any fractures. You will need to do home physical therapy to increase your strength and ability to walk well. Acute Coronary Syndrome Inclusion Criteria At DC or during hospital stay patient has or had the following: ACS DIAGNOSIS No Discharge Core Measures Meds if any: Prescribed or Continued at Discharge Meds if any: NOT Prescribed or Continued at Discharge Congestive Heart Failure Inclusion Criteria At DC or during hospital stay patient has or had the following: CHF DIAGNOSIS No Discharge Core Measures Meds if any: Prescribed or Continued at Discharge Meds if any: NOT Prescribed or Continued at Discharge Cerebrovascular accident Inclusion Criteria At DC or during hospital stay patient has or had the following: CVA/TIA Diagnosis No Discharge Core Measures Meds if any: Prescribed or Continued at Discharge Meds if any: NOT Prescribed or Continued at Discharge Venous thromboembolism Inclusion Criteria VTE Diagnosis No VTE Type NONE VTE Confirmed by (Test) NONE Discharge Core Measures - Per Current guidelines, there needs to be overlap - treatment for the first 5 days of Warfarin therapy. - If discharged on Warfarin prior to 5 days of - overlap therapy, the patient will need to be - assessed for post discharge needs including - *Post discharge parental anticoagulation - *Warfarin and/or parental anticoagulation education - *Follow up date to check INR post discharge At least 5 days overlap therapy as Inpatient No Meds if any: Prescribed or Continued at Discharge Note: Overlap Therapy is Warfarin and Anticoagulant Meds if any: NOT Prescribed or Continued at Discharge
[2017-09-18] MEDS ORDERED: TYLENOL325 M1 PO (16:04)
== END 2017-09-18 19:09 | disposition home health service (06) | DRG 563 ==
LOC: ERH 10:10 → 2NA 13:35 → ERHI 13:35 → EDBEDREQ 14:05 → ENRESERV 14:28 → ENTRNSPT 15:28 → EDTRNSPTSTS 15:37 → 2NA 15:53 → CMPTRNSPT 16:05 → 2NA 09-18 07:34 → DELTRNSPT 09-18 18:40 → 2NA 09-18 19:09
PROVIDERS: Physician Assistant Medical
DX: S93.402A Sprain of unspecified ligament of left ankle, initial encounter (principal); G30.9 Alzheimer's disease, unspecified; F02.80 Dementia in other diseases classified elsewhere, unspecified severity, without behavioral disturbance, psychotic disturbance, mood disturbance, and anxiety; E66.9 Obesity, unspecified; Z68.35 Body mass index [BMI] 35.0-35.9, adult; I35.0 Nonrheumatic aortic (valve) stenosis; I25.10 Atherosclerotic heart disease of native coronary artery without angina pectoris; Z95.1 Presence of aortocoronary bypass graft; I10 Essential (primary) hypertension; E78.5 Hyperlipidemia, unspecified; K21.9 Gastro-esophageal reflux disease without esophagitis; N40.1 Benign prostatic hyperplasia with lower urinary tract symptoms; R33.8 Other retention of urine; I73.9 Peripheral vascular disease, unspecified; R73.03 Prediabetes; Z90.49 Acquired absence of other specified parts of digestive tract; R26.9 Unspecified abnormalities of gait and mobility
CPT/HCPCS: 2NAP; 73610-LT; 73630-LT; 97116-GO; 97161-GP; 97530-GO; J1644; J3490

== ENCOUNTER 2017-12-07 08:34 | Emergency (ER) | payer OTHER, MEDICARE ==
[~2017-12-07] VITALS: Ht 167.6 cm; Wt 90.7 kg
[~2017-12-07 08:34] MED LIST changes: +FUROSEMIDE40 M1 PO; +TYLENOL325 M1 PO
--- NOTE | 2017-12-07 08:37 | ED GENERAL ADULT ---
History of Present Illness General Chief Complaint: General Adult Stated Complaint: GENERAL WEAKNESS, SOB Source: patient, EMS Exam Limitations: confusion, poor historian, physical impairment Vital Signs & Intake/Output Vital Signs & Intake/Output Vital Signs Date Time Temp Pulse Resp B/P B/P Pulse O2 O2 Flow FiO2 Mean Ox Delivery Rate 12/07 1538 65 168/80 12/07 1538 65 168/80 12/07 1538 65 168/80 12/07 1346 98.4 65 18 168/80 97 12/07 1135 98.2 67 16 171/80 95 Room Air 12/07 0905 98 Room Air 12/07 0844 98.6 67 18 180/74 98 Room Air Allergies Coded Allergies: Antihistamines - Alkylamine (UNKNOWN 04/30/17) Reconcile Medications Atorvastatin Calcium (Lipitor) 20 MG TABLET 1 TAB PO DAILY CHOLESTEROL ( Reported) Clonidine HCl 0.1 MG TABLET 1 TAB PO DAILY HTN (Reported) Cyanocobalamin (Vitamin B-12) 1,000 MCG TABLET 1 TAB PO DAILY SUPPLEMENT ( Reported) Dipyridamole W/ Aspirin (Aggrenox 25 MG-200 MG Capsule) 25 MG-200 MG CPMP.12HR 1 CAP PO BID HEART (Reported) Finasteride 5 MG TABLET 1 TAB PO DAILY PROSTATE (Reported) Folic Acid 1 MG TABLET 1 TAB PO DAILY SUPPLEMENT (Reported) Furosemide 40 MG TABLET 1 TAB PO Q48 FLUID RETENTION (Reported) Loperamide HCl (Loperamide) 2 MG TABLET 1 TAB PO BIDPRN PRN CONSTIPATION ( Reported) Memantine HCl (Namenda) 10 MG TABLET 1 TAB PO BID MEMORY (Reported) Metoprolol Tartrate 25 MG TABLET 1 TAB PO BID HTN (Reported) Omeprazole 40 MG CAPSULE.DR 1 CAP PO DAILY GI (Reported) Potassium Chloride (K-Tab ER) 10 MEQ TABLET.ER 1 TAB PO DAILY SUPPLEMENT ( Reported) Sennosides (Senna) 8.6 MG TABLET 1 TAB PO Monday GI (Reported) Sulfacetamide Sodium (Bleph-10) 10 % DROPS 1 DROP OPH BID EYE (Reported) Tamsulosin HCl (Flomax) 0.4 MG CAP.ER.24H 1 CAP PO DAILY BPH (Reported) Triamcinolone Acetonide 0.1 % CREAM..G. 1 [place] TOP BID AFFECTED AREA (Reported ) Triage Nurses Notes Reviewed? yes Onset: Abrupt Duration: unknown duration Timing: unknown HPI: 12/07/17 10:34 AM 79-year-old man presents to the emergency department for generalized weakness and difficulty breathing. He is a poor historian. He denies any chest pain or shortness of breath now. He does have significant lower extremity edema and also pain to his right calf. Past History Travel History Traveled to [place] past 21 day No Medical History Any Pertinent Medical History? 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 Relation not specified for: FH: leukemia Hx Contributory? No Review of Systems Review of Systems Constitutional: Denies: fever. EENTM: Reports: no symptoms. Respiratory: Reports: no symptoms. Cardiovascular: Reports: no symptoms. Denies: chest pain. GI: Denies: abdominal pain. Genitourinary: Reports: no symptoms. Musculoskeletal: Reports: no symptoms. Skin: Reports: no symptoms. Neurological/Psychological: Reports: confusion. Hematologic/Endocrine: Reports: no symptoms. Immunologic/Allergic: Reports: no symptoms. Physical Exam Physical Exam General Appearance: alert, awake, anxious, mild distress Head: atraumatic, normal appearance Eyes: Bilateral: normal appearance, PERRL, EOMI. Ears, Nose, Throat: normal pharynx, normal ENT inspection Neck: normal inspection, supple Respiratory: chest non-tender, no respiratory distress, decreased breath sounds Cardiovascular: regular rate/rhythm, murmur Peripheral Pulses: 4+ radial (R), 4+ radial (L) Gastrointestinal: soft, non-tender Back: decreased range of motion Extremities: pedal edema Neurologic/Psych: no motor/sensory deficits, awake, alert Skin: intact, normal color, warm/dry Core Measures ACS in differential dx? Yes CVA/TIA Diagnosis: No Sepsis Present: No Sepsis Focused Exam Completed? No Progress Differential Diagnoses I considered the following diagnoses in my evaluation of the patient: Symptomatic aortic stenosis, acute coronary syndrome, pulmonary edema, pulmonary embolism, pneumonia, dehydration] Plan of Care: Orders Procedure Date/time Status Add-on Test (ER Only) 12/07 1338 Active CULTURE,URINE 12/07 1338 Active URINALYSIS 12/07 1338 Complete THYROID STIMULATING HORMONE 12/07 1219 Complete THYROXINE 12/07 1219 Complete TROPONIN LEVEL 12/07 1207 Complete EKG 12/07 1207 Active Saline Lock 12/07 0843 Active TROPONIN LEVEL 12/07 0843 Complete LACTIC ACID 12/07 0843 Complete D-DIMER 12/07 0843 Complete COMPREHENSIVE METABOLIC PANEL 12/07 0843 Complete CBC WITHOUT DIFFERENTIAL 12/07 0843 Complete B-TYPE NATRIURETIC PEP (BNP) 12/07 0843 Complete EKG 12/07 0835 Active Laboratory Tests 12/07/17 1416: Urine Color YEL, Urine Clarity CLEAR, Urine pH 7.0, Ur Specific [place] 1.015, Urine Protein NEG, Urine Ketones NEG, Urine Nitrite NEG, Urine Bilirubin NEG, Urine Urobilinogen 0.2, Ur Leukocyte Esterase TRACE H, Ur Microscopic SEDIMENT EXAMINED, Urine WBC 1-3 H, Ur Epithelial Cells FEW, Urine Bacteria FEW H, Urine Hemoglobin NEG, Urine Glucose NEG 12/07/17 1219: Troponin I < 0.01, TSH 5.080 H, Thyroxine (T4) 4.9 12/07/17 1143: Lactic Acid Cancelled 12/07/17 1005: D-Dimer High Sensitivty < 200 12/07/17 0905: Anion Gap 10, Estimated GFR > 60, BUN/Creatinine Ratio 16.3, Glucose 124 H, Lactic Acid 1.9, Calcium 8.7, Total Bilirubin 1.1, AST 18, ALT 28, Alkaline Phosphatase 133 H, Troponin I < 0.01, Jvy-F-Yzqxrmbttsy Pept 353 H, Total Protein 7.0, Albumin 3.9, Globulin 3.1, Albumin/Globulin Ratio 1.3, CBC w Diff NO MAN DIFF REQ, RBC 4.74, MCV 88.3, MCH 30.6, MCHC 34.7, RDW 14.2, MPV 8.1, Gran % 67.8, Lymphocytes % 24.3, Monocytes % 5.8, Eosinophils % 1.7, Basophils % 0.4, Absolute Granulocytes 5.7, Absolute Lymphocytes 2.0, Absolute Monocytes 0.5 , Absolute Eosinophils 0.1, Absolute Basophils 0 Microbiology 12/07 1416 URINE ROUT: Urine Culture - RECD Initial ED EKG: NSR Prior EKG: unchanged Repeat EKG: unchanged Departure Departure Disposition: HOME OR SELF CARE Condition: Stable Clinical Impression Primary Impression: Dyspnea Referrals: Garret MCMILLAN,Obinna Kennedy (PCP/Family) Departure Forms: Customer Survey General Discharge Information Comments 12/07/17 2:51 PM Labs unremarkable repeat EKG is unchanged. The patient was seen and evaluated by Dr. Gallegos the patient does have critical aortic stenosis. The family wants conservative therapy. The patient was discharged and will follow-up with Dr. Gallegos this week. Critical Care Note Critical Care Note Critical Care Time: non-applicable
[2017-12-07] MEDS ORDERED: AGGRENOX 25 MG1 EACH PO (09:18)
[2017-12-07 09:19] LABS: ABSOLUTE BASOPHIL COUNT 0 /CUMM (0.0-0.2); ABSOLUTE EOSINOPHIL COUNT 0.1 /CUMM (0.0-0.7); ABSOLUTE GRANULOCYTE CT 5.7 /CUMM (1.4-6.5); ABSOLUTE MONOCYTE COUNT 0.5 /CUMM (0.10-0.60); BASOPHIL % 0.4 % (0.0-2.0); EOSINOPHIL % 1.7 % (0-5); GRANULOCYTE % 67.8 % (42.2-75.2); HEMATOCRIT 41.8 % (42-52); MEAN CORPUSCULAR HGB 30.6 PG (27.0-31.0); MEAN CORPUSCULAR HGB CONC 34.7 G/DL (33.0-37.0); MEAN CORPUSCULAR VOLUME 88.3 FL (80.0-94.0); MEAN PLATELET VOLUME 8.1 FL (7.4-10.4); PLATELET COUNT 190 /CUMM (130-400); RBC DISTRIBUTION WIDTH 14.2 % (11.5-14.5); RED BLOOD CELL CT 4.74 /CUMM (4.70-6.10); WHITE BLOOD CELL COUNT 8.4 /CUMM (4.8-10.8)
[2017-12-07] MEDS ORDERED: LOPERAMIDE2 M1 PO (09:22)
[2017-12-07] MEDS ORDERED: BLEPH-105 ML OPH (09:23)
[2017-12-07] MEDS ORDERED: TRIAMCINOLONE A15 G1 TOP (09:24)
--- NOTE | 2017-12-07 10:00 | ULTRASOUND REPORT ---
EXAMINATION: US TRIPLEX LOWER EXTREMITY, RIGHT CLINICAL INFORMATION: This is an 87-year-old male with right lower extremity pain. Possible deep vein thrombosis. COMPARISON: None TECHNIQUE: Color-flow triplex imaging with spectral analysis and compression Doppler were performed on the lower extremity. Unfortunately, the patient would not allow compression of the distal femoral vein. However, the femoral vein shows color flow and augmentation. All other veins are compressed and augmented adequately. FINDINGS: Respiratory variation, normal compression and augmented flow are noted throughout the lower extremity. The visualized common femoral vein, superficial femoral vein, profunda femoral vein, popliteal vein and midcalf peroneal and posterior tibial venous segments show no evidence of deep venous thrombosis. There is no Hampton's cyst. IMPRESSION: No evidence of deep venous thrombosis involving the lower extremity.
--- NOTE | 2017-12-07 11:02 | RADIOLOGY REPORT ---
EXAMINATION: XR PORTABLE CHEST CLINICAL INFORMATION: Shortness of breath COMPARISON: Chest radiographs on 10/29/2017, 04/30/2017 and 09/05/2016 TECHNIQUE: Portable frontal view of the chest was obtained. FINDINGS: Sternotomy wires are redemonstrated and overall unchanged. Low lung volumes are present and there are bibasilar opacities most consistent with atelectasis. There is no overt pulmonary edema. No pleural effusions or pneumothoraces are identified. The cardiomediastinal contours are within normal limits. IMPRESSION: Low lung volumes with bibasilar atelectasis. No evidence of overt pulmonary edema. No pleural effusions identified.
--- NOTE | 2017-12-07 14:10 | Cons- Cardiology ---
General Information and HPI Consulting Request Date of Consult: 12/07/17 Requested By: Dr. Alfaro History of Present Illness: Mr. Daniel is an 87 year old male with history of hypertension, dyslipidemia and coronary artery disease s/p CABG. He also has severe aortic stenosis. The patient was brought to the ER for evaluation of fatigue, shortness of breath and a general feeling of ill-being. He denies chest pain, pressure, tightness, lightheadedness or palpitations. At his baseline he walks slowly with a walker. He has some dementia and has had a recent stroke. He now feels back to baseline. In 2001 the patietn had CABF x 4 with a NEGRON graft to the lAD and separate SVG's to the diagonal branch, OM1 and distal RCA. Allergies/Medications Allergies: Coded Allergies: Antihistamines - Alkylamine (UNKNOWN 04/30/17) Home Med List: Atorvastatin Calcium (Lipitor) 20 MG TABLET 1 TAB PO DAILY CHOLESTEROL ( Reported) Clonidine HCl 0.1 MG TABLET 1 TAB PO DAILY HTN (Reported) Cyanocobalamin (Vitamin B-12) 1,000 MCG TABLET 1 TAB PO DAILY SUPPLEMENT ( Reported) Dipyridamole W/ Aspirin (Aggrenox 25 MG-200 MG Capsule) 25 MG-200 MG CPMP.12HR 1 CAP PO BID HEART (Reported) Finasteride 5 MG TABLET 1 TAB PO DAILY PROSTATE (Reported) Folic Acid 1 MG TABLET 1 TAB PO DAILY SUPPLEMENT (Reported) Furosemide 40 MG TABLET 1 TAB PO Q48 FLUID RETENTION (Reported) Loperamide HCl (Loperamide) 2 MG TABLET 1 TAB PO BIDPRN PRN CONSTIPATION ( Reported) Memantine HCl (Namenda) 10 MG TABLET 1 TAB PO BID MEMORY (Reported) Metoprolol Tartrate 25 MG TABLET 1 TAB PO BID HTN (Reported) Omeprazole 40 MG CAPSULE.DR 1 CAP PO DAILY GI (Reported) Potassium Chloride (K-Tab ER) 10 MEQ TABLET.ER 1 TAB PO DAILY SUPPLEMENT ( Reported) Sennosides (Senna) 8.6 MG TABLET 1 TAB PO Monday GI (Reported) Sulfacetamide Sodium (Bleph-10) 10 % DROPS 1 DROP OPH BID EYE (Reported) Tamsulosin HCl (Flomax) 0.4 MG CAP.ER.24H 1 CAP PO DAILY BPH (Reported) Triamcinolone Acetonide 0.1 % CREAM..G. 1 [place] TOP BID AFFECTED AREA (Reported ) Review of Systems Review of Systems: A review of systems is not obtainable. 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 Relation not specified for: FH: leukemia Psychosocial History Services at Home: Home Health Aide Exam & Diagnostic Data Vital Signs and I&O Vital Signs Date Time Temp Pulse Resp B/P B/P Pulse O2 O2 Flow FiO2 Mean Ox Delivery Rate 12/07 1346 98.4 65 18 168/80 97 12/07 1135 98.2 67 16 171/80 95 Room Air 12/07 0905 98 Room Air 12/07 0844 98.6 67 18 180/74 98 Room Air Intake & Output 12/07 1600 12/07 0800 12/07 0000 12/06 1600 12/06 0800 12/06 0000 Intake Total 0 Output Total Balance 0 Intake, Oral 0 Patient 200 lb Weight Weight Reported by Patient Measurement Method Physical Exam: General: WD/overweight male in NAD; awake and responsive with decreased memory. HEENT: NC/AT, PERRL, EOMI Neck: no JVD Heart: RRR with 3/6 systolic murmur Lungs: clear bilaterally ABdomen: soft, NT, +ve bowel sounds Extremties: no edema Assessment/Plan Assessment/Plan * This patient has exercise intolerance but no evidence of myocardial ischemia or decompensated CHF. He likely has a low flow state related to his severe aortic stenosis. I discussed the option of possible AVR with his at length and she will talk with her family about this. We will follow up in the office in one week. For now I think he can be discharged to home on his current medications. Consult Acknowledgment - Thank you for your consult request.
[2017-12-07 15:38] VITALS: BP 168/80
== END 2017-12-07 15:41 ==
LOC: ERH 08:34
PROVIDERS: Emergency Medicine
DX: R06.00 Dyspnea, unspecified (principal); R53.1 Weakness; R06.02 Shortness of breath; I10 Essential (primary) hypertension; I25.10 Atherosclerotic heart disease of native coronary artery without angina pectoris; R73.03 Prediabetes
CPT/HCPCS: 71045; 81001; 87086; 93005; 93010